=== PATIENT | male | born 1950 | race Caucasian/White ===

== ENCOUNTER 2017-01-19 15:17 | Inpatient (IN) | payer MEDICARE ==
[~2017-01-19] VITALS: Ht 180.3 cm; Wt 108.0 kg
[2017-01-19] VITALS (7 sets, daily range): BP systolic 120–163; BP diastolic 76–103; PULSE 72–88; RESP 19–24; O2SAT 39–100
[~2017-01-19 15:17] MED LIST: ASPI81TA40 PO; HYDR25TA4 PO; LISI10TA PO
--- NOTE | 2017-01-19 15:20 | ED.REPORT ---
HPI-Cardiac Arrest Date of Service Jan 19, 2017 ED Provider: Abdifatah Lee MD Pt is a 66 y/o male w/ a limited known history of HTN, HLD, presenting to the ED via EMS due to cardiac arrest. The patient came back home from a 36 mile bike ride. After the ride he was complaining of "indigestion". Shortly afterwards his who was upstairs heard him collapse to the ground. She went downstairs to find him unresponsive and apneic. She called 911 who instructed her to begin CPR. A few minutes later EMS arrived to find the patient in ventricular fibrillation. CPR was initiated and he was shocked a total of 3 times and received a total of 4 rounds of epinephrine with ROSC after the final shock. Total time of CPR estimated to be about 20 minutes. On route, he was intubated and EMS started an epinephrine drip as well as gave amiodarone, bicarb , and succinylcholine/ketamine for sedation. Vital signs on route: HR 50-60 bpm , BP 50-60/30, sp02 90-100%. He arrives to the ED in a normal sinus rhythm with rate in 80s with BP 120/76. Nursing Notes Stated Complaint: ARREST Nursing Notes Reviewed: Yes Allergies: Coded Allergies: No Known Allergies (Verified Allergy, Unknown, 10/16/09) Scheduled Aspirin-Expunged Drug, Do Not Renew! (Aspirin-Expunged Drug, Do Not Renew!) 81 Mg Tab.chew 81 MG PO AM Hydrochlorothiazide-Expunged, Do Not Renew! (Hydrochlorothiazide-Expunged, Do Not Renew!) 25 Mg Tablet 25 MG PO AM Lisinopril-Expunged Drug, Do Not Renew! (Lisinopril-Expunged Drug, Do Not Renew! ) 10 Mg Tablet 10 MG PO AM General Time Seen by Provider: 15:24 Chief Complaint Cardiac arrest, found dwn Context: Resuscitation: Initial rhythm V Fib Hx Obtained From: Spouse, EMS Unable to Obtain Hx: Patient condition Arrived By: Ambulance Past Medical History Past Medical History Hypertension Hyperlipidemia Right inguinal hernia s/p repair Further unknown Past Surgical History Right inguinal hernia repair Smoking History Unknown if Ever Smoker Social History Other Social History: Ambulatory Status Independent Review of Systems Unable to Obtain ROS Patient condition, Intubated Physical Exam Initial Vital Signs Vital Signs (First) Date Time Temp Pulse Resp B/P Pulse Ox O2 Delivery O2 Flow Rate FiO2 01/19/17 15:42 83 120/76 100 Mechanical Ventilator 01/19/17 15:45 19 Initial VS: Reviewed, Vital signs abnormal GENERAL: Intubated Sedated Respiratory / Chest: Breath sounds NL, Breath sounds = bilat, No rales, No rhonchi, No wheezing Intubated and sedated Cardiovascular: Heart rate NL, Regular rhythm, Heart sounds NL, No murmurs Strong femoral pulse Abdomen: Atraumatic, Soft Head / Eyes: Atraumatic, Normocephalic, PERRL ENT: Atraumatic, Airway patent Neck: Atraumatic Upper Extremity / MS: Atraumatic Lower Extremity / Pelvis / MS: Atraumatic Skin: Atraumatic, No rash NEURO: Sedated PSYCH: Unable to assess Interpretation & Diagnostics Lab Results Interpretation Result Diagram: 01/19/17 1545 01/19/17 1545 Test 01/19/17 15:45 01/19/17 15:52 White Blood Count 11.3th/mm3 (3.8-10.1) Red Blood Count 4.49mil/mm3 (4.40-5.80) Hemoglobin 12.5g/dL (13.8-17.2) Hematocrit 38.6% (41.0-50.0) Mean Corpuscular Volume 86.0fL (81-100) Mean Corpuscular Hemoglobin 27.8pg (27.0-35.0) Mean Corpuscular Hemoglobin Concent 32.4% (32.0-37.0) Red Cell Distribution Width 15.2% (12.3-15.4) Platelet Count 188bil/L (150-400) Neutrophils (%) (Auto) 56.6% (40-74) Lymphocytes (%) (Auto) 31.0% (14-46) Monocytes (%) (Auto) 8.0% (4-12) Eosinophils (%) (Auto) 1.7% (0-5) Basophils (%) (Auto) 0.5% (0-3) Sodium Level 144mEq/L (134-144) Potassium Level 3.8mEq/L (3.5-5.2) Chloride Level 107mEq/L (97-108) Carbon Dioxide Level 13mmol/L (18-29) Blood Urea Nitrogen 19mg/dL (8-27) Creatinine 1.37mg/dL (0.76-1.27) Estimat Glomerular Filtration Rate 55mL/min (>59) Glucose Level 254mg/dL (60-99) Calcium Level 7.5mg/dL (8.5-10.1) Magnesium Level 2.2mg/dL (1.6-2.6) Total Bilirubin 0.3mg/dL (0.0-1.2) Aspartate Amino Transf (AST/SGOT) 103U/L (0-50) Alanine Aminotransferase (ALT/SGPT) 97U/L (0-44) Alkaline Phosphatase 59U/L (25-160) Troponin T < 0.010ug/L (0.0-0.011) Total Protein 5.3g/dL (6.4-8.4) Albumin 3.5g/dL (3.4-5.0) Prothrombin Time 11.4sec (8.1-12.5) Prothromb Time International Ratio 1.06ratio Lactic Acid Level 8.1mmol/L (0.4-2.0) Phosphorus Level 7.6mg/dL (2.5-4.9) Total Creatine Kinase 139U/L (21-232) Creatine Kinase MB 2.2ng/mL (0.0-10.4) Creatine Kinase MB % % (0.0-5.0) Pro-B-Type Natriuretic Peptide 119.4pg/mL (0-376) Hold [place] Top Tube Received (Received) ECG Interpretation ECG Interpretation: Sinus rhythm rate 87 Extensive anterior STEMI IVCD Reviewed with cardiology No prior available for comparison Time: 15:32 Interpreted by: ED physician, Warehouse Operator X-Ray Chest Interpretation Chest Xray Interpretation: IMPRESSION: Endotracheal tube and nasogastric tube are in expected positions. No pneumothorax. Dictated by: Juan A Lang M.D. on 01/19/2017 at 16:07 Approved by: Juan A Lang M.D. on 01/19/2017 at 16:08 View: Portable, 1 view Interpretation / Wet Read by: Interpret - Radiologist Chest Xray Interpretation: IMPRESSION: Right internal jugular central venous catheter is now present, with tip in expected position. No pneumothorax. Dictated by: Juan A Lang M.D. on 01/19/2017 at 16:23 Approved by: Juan A Lang M.D. on 01/19/2017 at 16:24 View: Portable, 1 view Interpretation / Wet Read by: Interpret - Radiologist CT Head Interpretation IMPRESSION: No acute intracranial abnormalities. Dictated by: Juan A Lang M.D. on 01/19/2017 at 16:31 Approved by: Juan A Lang M.D. on 01/19/2017 at 16:33 Study: Head CT no contrast Interpretation / Wet Read by: Interpret - Radiologist Procedures Central Line Placement Time: 15:48 Procedure Performed by: ED physician Consent / Setup / Site Prep: Consent from spouse, Time-out performed, Needle aspirate performed, Oxygen administered, Pulse oximeter applied, monitoring manager applied, Hand hygiene observed, Standard surgical scrub, Max barrier precaution, Sterile drapes applied Skin Preparation Agent: Hibiclens - Chlorhexidine Procedural Sedation/Analgesia: Sedation: Versed Side / Location / Ultrasound: Internal jugular right, Ultrasound assisted Catheter / Lumen / Technique: Triple lumen, Seldinger technique, Good blood return Central Line Tip Location: Cath tip good position in the SVC Post-Procedure / Complications: Antibiotic oint applied, Dressing placed, CXR neg for pneumothorax, Tolerated procedure well, Not stable post-procedure ( Unstable at beginning of procedure) Re-Eval/Medical Decision Med Decision/Clinical Course 66-year-old male history of hypertension presenting status post cardiac arrest. Patient went on a 30 mile bike ride with his then complained of chest pain and passed out. for the event and found the patient unconscious. She performed CPR. Paramedics arrived and found the patient unconscious in ventricular fibrillation. Patient was shocked multiple times and given 4 rounds of epinephrine. Rosc was achieved. Patient was started on an epinephrine drip in route. On arrival patient with normal blood pressures in sinus rhythm. Intubated. Sedated. Pulses were strong. EKG was obtained and showed an anterior STEMI. Dr. Almonte interventional cardiology was consulted immediately and Toolroom Clerk was activated code STEMI. A right ultrasound-guided internal jugular central venous catheter was placed. Hypothermia protocol was initiated. Patient was placed on amiodarone drip. Cardiology requested rectal aspirin not heparin drip. Patient was taken to the laboratory phlebotomist emergently. CT brain no acute pathology. Admitted to laboratory phlebotomist. Sedated with versed gtt. Re-Evaluation/Progress #1: Time of Eval: 15:32 Re-Evaluation/Progress Note: Discussed case with who arrived shortly after patient. Re-Evaluation/Progress #2: Time of Eval: 15:42 Re-Evaluation/Progress Note: Pt rechecked. Informed of need for laboratory phlebotomist. She agrees with plan. Re-Evaluation/Progress #3: Time of Eval: 15:48 Re-Evaluation/Progress Note: Pt rechecked. Informed of plan to plan central line. She agrees with plan. Given normal BP, cooling protocol is started. Re-Evaluation/Progress #4: Time of Eval: 16:05 Re-Evaluation/Progress Note: Warehouse Operator arrived. Explaining cath procedure to . Consultation : Referral / Consult Name: Erick Almonte MD Consulted With: Cardiology Call Returned at: 15:34 Medical Support Assistant: Will see patient, Agrees with eval, Agrees with plan, Accepts admit Note: Discussed case with interventional cardiology. EKG reviewed and interpreted as anterior STEMI. Accepts patient to laboratory phlebotomist. No cooling protocol if he remains hypotensive. Counseled Regarding: Diagnosis, Lab results, Need for admission Discharge & Departure Impression: Primary Impression: Cardiac arrest Additional Impression: ST elevation myocardial infarction (STEMI) of anterior wall Disposition: ADMITTED TO HOSPITAL All VS Reviewed: Yes Condition: Critical Referrals: Saroj Galaviz MD (PCP) Crit Care Except Billable Proc Time Spent: 30-74 minutes Services Performed: Patient management by me, Time spent at bedside, Reviewing test results, Reviewing imaging, Discussing patient care, Documentation in record Scribe Attestation Portions of this note were transcribed by Jacob Valentine. I, Dr. Lee personally performed the history, physical exam and medical decision-making; I reviewed and confirmed the accuracy of the information in the transcribed note. copies to: Saroj Galaviz MD, Ben M MD Jan 19, 2017 15:20 JACOB VALENTINE Jan 19, 2017 15:30
[2017-01-19] MEDS ORDERED: Midazolam 100 mg/100 mL Premix IV ONE (15:35)
[2017-01-19] MEDS ORDERED: 0.9% Sodium Chloride 1,000 ML IV ONE (15:37)
[2017-01-19 15:48] LABS: BASOPHILS % (AUTO) 0.5 % (0-3); EOSINOPHILS % (AUTO) 1.7 % (0-5); Mean Corpuscular Hemoglobin 27.8 pg (27.0-35.0); NEUTROPHILS % (AUTO) 56.6 % (40-74); Platelet Count 188 bil/L (150-400)
[2017-01-19 16:00] LABS: INR 1.06 ratio
[2017-01-19] MEDS ORDERED: Heparin 1,000 Units/500 mL NS Premix IV ONE ×2 (16:00→17:54)
[2017-01-19] MEDS ORDERED: Nitroglycerin 50,000 mcg/250 mL D5W Premix IV ONE (16:00)
[2017-01-19] MEDS ORDERED: Heparin 1,000 Unit/mL 10 mL Inj ONE ×2 (16:00→17:20)
[2017-01-19] MEDS ORDERED: NitroPRUSSIDE 25,000 mCg/mL 2 mL Inj IV ONE (16:01)
[2017-01-19] MEDS ORDERED: Dextrose 5% 250 ML IV ONE (16:01)
[2017-01-19] MEDS ORDERED: Heparin 10,000 Unit/1,000 mL NS Premix IV ONE ×2 (16:01→16:09)
[2017-01-19] MEDS ORDERED: 0.9% Sodium Chloride 2,000 ML ONE (16:01)
[2017-01-19] MEDS ORDERED: EPINEPHrine 10,000 mCg/250 mL NS IV SCH ×2 (16:05)
--- NOTE | 2017-01-19 16:10 | DRSVH ---
PROCEDURE: X-RAY CHEST ONE VIEW, PORTABLE ([id number]) INDICATIONS: 66 year-old male with cardiac arrest. TECHNIQUE: One view of the chest was acquired. COMPARISON: [facility], , CHEST 2VW, 09/27/2014, 15:02. FINDINGS: Surgical changes and devices: Endotracheal tube and nasogastric tube are in expected positions. Lungs and pleura: No pleural effusions or pneumothorax. Lungs are clear. Previously noted right lo wer lung nodular opacity is no longer apparent. Mediastinum: Mediastinal contours appear normal. Heart size is normal. Bones and chest wall: No suspicious bony lesions. Overlying soft tissues appear unremarkable. IMPRESSION: Endotracheal tube and nasogastric tube are in expected positions. No pneumothorax. Dictated by: Juan A Lang M.D. on 01/19/2017 at 16:07 Approved by: Juan A Lang M.D. on 01/19/2017 at 16:08
[2017-01-19 16:11] LABS: TROPONIN T < 0.010 ug/L (0.0-0.011)
[2017-01-19 16:21] LABS: Magnesium 2.2 mg/dL (1.6-2.6)
--- NOTE | 2017-01-19 16:26 | DRSVH ---
PROCEDURE: X-RAY CHEST ONE VIEW, PORTABLE ([id number]) INDICATIONS: 66-year-old male with central line placement. TECHNIQUE: One view of the chest was acquired. COMPARISON: [facility], CR, XR CHEST 1VW (PORTABLE), 01/19/2017, 15:22. [facility], CR, CHEST 2VW, 09/27/2014, 15:02. FINDINGS: Surgical changes and devices: Endotracheal tube and nasogastric tube are again noted. Right internal jugular central venous catheter is now present, with tip in the mid superior vena cava. Lungs and pleura: No pleural effusions or pneumothorax. Lungs are clear. Mediastinum: Mediastinal contours appear normal. Heart size is normal. Bones and chest wall: No suspicious bony lesions. Overlying soft tissues appear unremarkable. IMPRESSION: Right internal jugular central venous catheter is now present, with tip in expected posit ion. No pneumothorax. Dictated by: Juan A Lang M.D. on 01/19/2017 at 16:23 Approved by: Juan A Lang M.D. on 01/19/2017 at 16:24
--- NOTE | 2017-01-19 16:35 | DRSVH ---
PROCEDURE: CT BRAIN WITHOUT CONTRAST ([id number]) INDICATIONS: 66 year-old male with cardiac arrest. TECHNIQUE: Noncontrast 4.5 mm thick angled axial sections acquired from the foramen magnum to the vertex, with c oronal reformats. COMPARISON: None. FINDINGS: Image quality: Excellent. CSF spaces: Basal cisterns are patent. No extra-axial fluid collections. Ventricles are normal in size and shape. Brain: No midline shift. No intracranial masses or hemorrhage. Scherer-white matter interface is norm al. Skull and face: Calvarium and visualized facial bones are intact, without suspicious lesions. Sinuses: Visualized sinuses and mastoids are clear. IMPRESSION: No acute intracranial abnormalities. Dictated by: Juan A Lang M.D. on 01/19/2017 at 16:31 Approved by: Juan A Lang M.D. on 01/19/2017 at 16:33
[2017-01-19 16:59] LABS: INR 1.06 ratio
[2017-01-19] MEDS ORDERED: Cisatracurium Inj 200,000 MCG in 0.9% Sodium Chloride 100 ML, Pharmacy To Mix 1 EA IV ONE (17:05)
[2017-01-19 17:20] LABS: Creatine Kinase 139 U/L (21-232); Phosphorus 7.6 mg/dL (2.5-4.9)
--- NOTE | 2017-01-19 19:25 | NUR ---
Arrival to CCU Patient in CCU at 1850- stable. Right groin balloon pump at 1:1 ratio- groin side stable. Right groin post heart intervention side stable with star-close closure device placed by cathode builder team. Cooling protocol initiated in ED patient at 33.4 core temperature on arrival in CCU. Patient was started on nimbex drip at 3mcg/kg/min in cathode builder for shivering- no shivering on arrival to CCU. Report was given to Ana slot shift supervisor CCU RN.
[2017-01-19] MEDS ORDERED: Polyethylene Glycol (PEG) 17 Gm Powder PO PRN (19:35)
[2017-01-19] MEDS ORDERED: Ondansetron 2 mg/mL 2 mL Inj IVPUSH PRN (19:35)
[2017-01-19] MEDS ORDERED: Alum-Mag Hydrox-Simeth 30 mL Suspension PO PRN (19:35)
--- NOTE | 2017-01-19 20:42 | NUR ---
ED LAUNCHMAN Note D/A: [facility] called overhead. LAUNCHMAN presented to Pt's room to provide support and assistance as needed. Pt experienced a cardiac arrest and 26 minutes of CPR STOCKING AND BOX SHOP SUPERVISOR. Pt was intubated and noncommunicative upon arrival Pt's , Isabel, arrived shortly after Pt. P: LAUNCHMAN provided support to Pt's and family throughout Pt's stay in the ED and his procedure in Tip Out Worker. Pt was admitted to CCU. LAUNCHMAN escorted Pt's family to CCU consult room. SHARON Reed, AAC
--- NOTE | 2017-01-19 21:01 | ABG ---
DateTimeAnalyzed 20:51:00 -_ pH ____7.331 - 7.350 7.450 pCO2 ___31.3__ -mmHg 35.0 45.0 pO2 152 -mmHg 69.0 116 HCO3- ___16.1__ -mmol/L 22.0 26.0 ABE ___-8.3__ -mmol/L -2.0 2.0 tHb ___15.2__ -g/dL O2Hb ___97.0__ -% COHb ____0.4__ -% MetHb ____1.1__ -% sO2 ___98.5__ -% 25.0 FIO2 ___70.0__ -% PRVC 24 - PEEP ____5.0__ -cmH2O Set_RR ___24.0__ -b/min Vt __550.0__ -L Drawn By blf - Date/Time Notified____ 21:01:00 -_ Spontaneous_RR ___24.0__ -b/min Oxygen Device 1 VENTILATOR - Notified By blf - Notified Whom RADHA SWAN RN - B 764 -mmHg tO2 ___21.0__ -Vol% Heladio test N/A -
[2017-01-19] MEDS ORDERED: Phenylephrine/NS-PF 100 mCg/mL 5 mL Syringe IVPUSH PRN (21:20)
[2017-01-19] MEDS ORDERED: Phenylephrine Inj 20,000 MCG in 0.9% Sodium Chloride 250 ML IV SCH (21:20)
--- NOTE | 2017-01-19 21:21 | CONS ---
[address] [address] CONSULTATION REPORT PATIENT: EDDIE DÍAZ : 1950 MR#: [id number] ADMIT: 01/19/2017 JOB ID: [id number] DATE OF SERVICE: 01/19/2017 CARDIOLOGY CONSULTATION--INITIAL CRITICAL CARE EVALUATION (EMERGENCY DEPARTMENT): DATE OF EVALUATION: Thursday, January 19, 2017. CONSULTING PHYSICIAN: Cardiology--Erick Almonte MD. PROBLEMS: 1. Acute coronary syndrome (ACS): a. Cardiac arrest--sudden cardiac at home with bystander CPR; and ROSC with prolonged CPR and four defibrillation plus multiple epinephrine. b. STEMI--acute anterior myocardial infarction. c. Cardiogenic shock--requiring moderate dose epinephrine IV infusion. d. Hypothermia protocol--intubated and unresponsive on ventilator. CAD RISK FACTORS: 1. Hypertension--treated. 2. No history of diabetes. 3. History of possible hypercholesterolemia; not treated. 4. Nonsmoker. FAMILY HISTORY: Premature coronary disease noted. CHIEF COMPLAINT: STEMI activation. Cardiac arrest with ST elevation on ECG. HISTORY OF PRESENT ILLNESS: PRESENTATION: This 66-year-old man presents to the emergency department by EMS after he collapsed at home with a cardiac arrest. He has been previously healthy with no prior history of heart disease until today. He had a 35-mile bike ride today in the hot weather. He began to develop chest discomfort with "indigestion." He finished the bike ride, returned home, took a shower. His was in another room and heard him collapse with agonal breathing. There was a question that he fell. She found him on the couch. She began CPR for 6 minutes. EMS then arrived and is reported to have done CPR for another 25-26 minutes. He had four defibrillation; and four rounds of epinephrine and amiodarone in the field. Blood pressures were initially as low as 60. On arrival to the emergency department, he had blood pressure above 100 but requiring epinephrine drip. He received ASA per rectum 650 mg. Because of the questionable fall, head CT was done. ECG shows anterior ST elevation. Decision is made for emergent coronary angiogram and anticipated PCI. Cardiac history: He has no antecedent cardiac history or prior cardiac symptoms. Regarding other possibly underlying vascular disease, there is no history of CVA or current symptoms of TIA. No claudication. Regarding possible dual antiplatelet therapy, he has no current bleeding symptoms; no anticipated surgery; and the states he is reliable to take mandatory medicines as needed. ALLERGIES: No known drug allergies. I elicit no history of allergy to medical contrast or to seafood, fish, iodine, or shellfish. MEDICATIONS: 1. ASA 81 mg daily. 2. A medicine for hypertension. PAST MEDICAL HISTORY: The states he has a primary physician and is generally healthy and treated for no other major medical diagnoses except hypertension. REVIEW OF SYSTEMS: I questioned the in the emergent setting regarding a 13-point review of systems which was unremarkable, noncontributory or negative except as noted including: No history of thyroid disorder. No history of lung disorder including dyspnea or asthma. No history of GI disorder including indigestion, ulcer, hepatitis or jaundice. PERSONAL AND SOCIAL HISTORY: Cigarettes--lifetime nonsmoker except transiently in the past in his youth. ETOH--he does not report significant alcohol use. Family--He lives locally with his and has two children who arrived. Work--He is retired from working in the [employer]. FAMILY HISTORY: There is a family history of premature coronary disease in his father in his 40s. PHYSICAL EXAMINATION: Vital signs: Initially blood pressure 120/80, on epinephrine IV infusion 0.04 mcg/kg per minute. Respiratory rate 18, breathing on his own above the ventilator rate. Pulse oximeter 100% on 100% FiO2. Pulse 83 and sinus rhythm. General appearance: Well-developed elderly man who is unresponsive on a ventilator with hypothermia protocol initiated. Neurologic and mental status: No overt focal neurologic defect noted. HEENT: PERR, mid range bilaterally. Conjunctivae pink. Sclerae not icteric. Mouth and mucous membranes intact except intubated. Neck: Carotid upstroke intact bilaterally without bruit. JVP difficult to assess supine but unremarkable. No palpable thyromegaly. No palpable cervical lymphadenopathy. Lungs: Clear to auscultation bilaterally with diminished breath sounds examined supine on ventilator. Cardiac: Cardiac examination notable for distant heart sounds, S4 gallop. No loud murmur heard. Abdomen: Mildly obese, but otherwise unremarkable without mass, hepatosplenomegaly, or bruit of abdominal aortic aneurysm. Extremities: Intact without edema and pedal pulses strong at bilateral dorsalis pedis and posterior tibial. DIAGNOSTIC STUDIES: ECG shows sinus rhythm with initially right bundle branch block, left axis deviation, and normal SC later in the catheterization lab. The QRS is not wide. Chest x-ray: The chest x-ray film shows borderline cardiomegaly; and pulmonary venous congestion is present. LABORATORY: Initial laboratories include: CBC includes WBC 11,300 with hemoglobin 12.5, hematocrit 38.6. Normal indices and platelet count 188,000. INR 1.06. Chemistries include potassium 3.8, BUN 19, creatinine 1.37, glucose 254, HB A1c pending. Lactic acid 8.1, magnesium 2.2. LFT include elevated AST 103 and elevated ALT 97. Initial cardiac enzymes include CK total 139, CK MB 2.2 with troponin less than 0.010 and BNP 119. ASSESSMENT: I discussed the findings, impression, and management considerations with the ; later with his children and other family members; with the emergency department staff, Dr. Piyush Esposito; with the hospitalist critical care team including Dr. Marvin Beard and Dr. Mendoza; and with Cardiology, Dr. Joseph, including: ACS with SCD, anterior STEMI and ROSC requiring ventilator; and cardiogenic shock with epinephrine dependent: He presented with initial ischemic chest discomfort, then cardiac arrest, then ROSC after prolonged CPR and a prolonged resuscitation. He is now critically ill, unresponsive on ventilator with cardiogenic shock, requiring moderate to high-dose epinephrine. I discussed the findings, impressions and management considerations with the including the recommendation to proceed to emergent coronary angiogram and anticipate a PCI for anterior ME and anticipated LAD occlusion. He will likely benefit from balloon pump support. RECOMMENDATIONS: 1. Cardiac catheterization--emergent. 2. Critical care support including ventilator and hypothermia protocol. OMT-optimal guideline directed medical therapy including for underlying CAD risk factors and for his coronary disease including aspirin; prasugrel; high-intensity statin; beta-britney when compensated; XUAN inhibitor when compensated. Echocardiogram.
[2017-01-19] MEDS: Famotidine Inj 20 MG in IV Premix 1 EACH IV SCH (21:26)
[2017-01-19] MEDS ORDERED: IV Premix 1 EACH IV ONE (22:06)
[2017-01-19] MEDS ORDERED: Amiodarone 360 mg/200 mL D5W Premix IV ONE (22:06)
--- NOTE | 2017-01-19 22:17 | CS94 ---
[address] [address] DIAGNOSTIC CARDIAC CATHETERIZATION PATIENT: EDDIE DÍAZ : 1950 MR#: [id number] ADMIT: 01/19/2017 JOB ID: [id number] SERVICE DATE: 01/19/2017 PROCEDURE NOTE/CARDIAC CATHETERIZATION LABORATORY: MIXED SIGNAL DESIGN ENGINEER: Erick Almonte MD PROCEDURES: 1. Coronary angiogram, emergent. 2. Left heart catheterization (LHC), pressure measurement. 3. Percutaneous coronary intervention (PCI), stents of mid LAD (CARLOS ALBERTO); Xience 2.5 x18; Xience 2.75 x 23 overlapping proximally; and Xience 2.75 x 23 overlapping proximally. 4. IABP (intra-aortic balloon pump). CLINICAL DETAILS: Details: This 66-year-old man presents to the cardiac catheterization laboratory emergently after he was admitted to the emergency department by EMS following collapse at home with cardiac arrest bystander CPR and ROSC (return of spontaneous circulation) by EMS following defibrillation four times and epinephrine four times and prolonged CPR over 25 minutes prior to hospital arrival. In the emergency department, he was in cardiogenic shock with hypotension; initial pre-hospital blood pressures as low as 60; and requiring epinephrine IV support at 4.2 mcg/minute. He was unresponsive on ventilator and hypothermia protocol initiated. He has no prior history of known heart disease. He took a 35 mile bike ride today in the heat; he complained of onset of indigestion-like chest discomfort; then collapsed at home sometime later. Underlying CAD risk factors include treated hypertension and possible history of hypercholesterolemia; and family history of premature coronary disease. PROCEDURAL DETAILS: I evaluated him emergently in the emergency department. I spoke with his regarding the findings, impressions and management considerations, including the recommendation to proceed to emergent cardiac catheterization for definitive diagnosis and to guide treatment options including medical therapy, anticipated PCI; or coronary bypass surgery if needed. We discussed the procedure including possible risks and complications. We discussed his critical illness and the high risk nature of the procedure, including the high likelihood of mortality. We discussed bleeding, infection, blood clots; as well injury to nerve, artery, vein or kidney; and also arrhythmia, drug reaction or others. We discussed treatment as needed including surgery, pacemaker, transfusion. We discussed more serious complications that are possible including stroke, heart attack, cardiac arrest, and emergency surgery including transfer for coronary bypass surgery. After questions and discussion, the signed informed consent to proceed. Because of a history of having an unwitnessed fall, he had a CT head prior to the catheterization laboratory which was reported to be satisfactory. He was taken to the catheterization laboratory in critical condition, including intubated, where he was prepped sterilely and draped. Prior to the procedure, he had received ASA 650 mg per rectum; and epinephrine IV infusion continued; and amiodarone in the field, as well as ongoing amiodarone infusion. CORONARY ANGIOGRAM: Arterial access is obtained without difficulty in the right common femoral artery using fluoroscopic localization over the femoral head; and modified Seldinger technique to insert a 10 cm 6-Peruvian side-arm sheath. Catheters were advanced and exchanged over a long 0.035 inch J-tipped guidewire. First, the right coronary artery was imaged with a 6-Peruvian JR-4 diagnostic catheter. Then, the left coronary artery was imaged with a 6-Peruvian JL-4 guide catheter. LHC: At the end of the procedure a 6-Peruvian pigtail catheter was advanced across the aortic valve into the left ventricle to measure LVED and pullback. No LV angiogram done. PCI of mid LAD: Diagnostic images are reviewed. Decision is made to undertake emergent high risk intervention of the occluded culprit mid LAD. The guide catheter in place was used for the intervention. For the intervention, he received a loading dose of crushed prasugrel 60 mg per OGT. Procedural anticoagulation was obtained with bolus IV heparin to achieve therapeutic ACT. Aliquots of NTG IC were used as needed. The occluded mid LAD was crossed with an interventional wire, BMW 0.014 inches x 190 cm, placed in the distal LAD. PREDILATATION: The site of occlusion was pre-dilated with a TREK balloon, 2.5 x 15 mm, inflated to a maximum of 8 atmospheres. The artery was open. The culprit site of occlusion is a subtotal 95% tubular lesion. There is also a distal 90% tubular lesion and overall the treatment site is a diffuse segment of LAD. STENTS: The distal part of the lesion was initially treated with a Xience stent, 2.5 x 18 mm, deployed at 16 atmospheres. Then, an overlapping Xience stent, 2.75 x 23 mm, was deployed overlapping proximally at 16 atmospheres. Then, a third Xience stent, 2.75 x 23 mm, was deployed at 18 atmospheres. POST DILATATION: The stented segment was post dilated at high pressure using a noncompliant TREK balloon, 2.75 distally; and 3.0 proximally. Additionally, at the end of the procedure, there was some haziness distally in the stented segment which was then post dilated again with the noncompliant 2.75 mm balloon with improved appearance. Completion angiogram showed an excellent angiographic result with resumption of KENDAL-3 flow (KENDAL-0 initially); and no residual lesions; and no evident angiographic complication. INTRA-AORTIC BALLOON PUMP (IABP): Because he was still pressor dependent and very high LVED, a balloon pump was inserted in the left common femoral artery without difficulty using fluoroscopic localization over the femoral head; and modified Seldinger technique to insert a 40 cm intra-aortic balloon pump through a sheath. The balloon pump functions well with good augmentation and unloading in systole and diastole. Procedure without difficulty. Patient tolerated procedure well and he was improved. No complication. A side-arm sheath angiogram demonstrates adequate access in the right femoral artery for closure device. Arterial hemostasis is obtained without difficulty using a 6-Peruvian StarClose clip. The patient is improved with less pressor requirement; and is transferred in still critical condition from the catheterization laboratory to the CCU unit for ongoing care by the admitting hospitalist team; by the critical care team. I discussed the procedure findings and management considerations with the patient's and multiple other family members; as well as with the critical care team, Dr. Beard; and with Cardiology, Dr. Joseph. FINDINGS: 1. LMCA: Intact; and without angiographically significant lesions. 2. LAD: Mid LAD occluded. This is the culprit lesion for his infarct and cardiac arrest. The LAD is a moderate to large-sized transapical vessel. There is a small to medium diagonal branch (1.75-2 mm) at the site of the culprit subtotal LAD lesion seen when the vessel was opened. The diagonal has a moderate ostial lesion after cross by stent. The diagonal deteriorated but then improved with KENDAL-2 flow by the end of the procedure. No intervention was undertaken on this vessel. 3. LCX: Intact without angiographic stenoses. The left circumflex coronary artery is a large vessel without angiographically significant stenoses. Its distribution consists of a small to moderate sized OM followed by a large branching left posterolateral vessel. 4. RCA: Dominant. There is an intermediate 50% to 60% focal proximal lesion. The RCA is a large vessel. 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 5. LHC: LVED very high 40 mmHg; and no systolic gradient on pullback across the aortic valve. CONCLUSIONS: 1. PCI, primary PCI of culprit midLAD occlusion. 2. Adjunctive IABP. 3. Acute coronary syndrome (ACS), cardiac arrest; anterior myocardial infarction (STEMI); and cardiogenic shock. 4. Coronary artery disease (CAD), two-vessel CAD including culprit occluded midLAD; and intermediate 50% to 60% proximal RCA. RECOMMENDATIONS: 1. ECASA, indefinitely. 2. Prasugrel, plan one year if well tolerated, including ongoing Cardiology followup. I discussed with the the critical importance of mandatory dual antiplatelet therapy; and not to stop for any reason without immediate Cardiology consultation. 3. Echocardiogram. 4. Critical care support including initially ventilator, hypothermia protocol and balloon pump. 5. OMT, optimal guideline directed medical therapy for underlying CAD risk factors; and for coronary disease.
--- NOTE | 2017-01-19 22:48 | ABG ---
DateTimeAnalyzed 22:42:00 -_ pH ____7.303 - 7.350 7.450 pCO2 ___31.9__ -mmHg 35.0 45.0 pO2 176 -mmHg 69.0 116 HCO3- ___15.3__ -mmol/L 22.0 26.0 ABE ___-9.6__ -mmol/L -2.0 2.0 tHb ___15.2__ -g/dL O2Hb ___97.4__ -% COHb ____0.3__ -% MetHb ____1.0__ -% sO2 ___98.7__ -% 25.0 FIO2 ___70.0__ -% PRVC 24 - PEEP ____5.0__ -cmH2O Vt __550.0__ -L Drawn By blf - Date/Time Notified____ 22:47:00 -_ Spontaneous_RR ___24.0__ -b/min Oxygen Device 1 VENTILATOR - Notified By blf - Notified Whom RADHA SWAN RN - B 764 -mmHg tO2 ___21.2__ -Vol% Heladio test N/A -
[2017-01-19 23:26] LABS: Mean Corpuscular Hemoglobin 27.4 pg (27.0-35.0); Mean Corpuscular Volume 83.5 fL (81-100)
[2017-01-19 23:41] LABS: INR 1.11 ratio
[2017-01-20] VITALS (22 sets, daily range): BP systolic 80–147; BP diastolic 48–87; PULSE 55–74; RESP 24–41; O2SAT 100
[2017-01-20] MEDS ORDERED: Calcium GLUCOnate 10% (Gm) 1 Gm/10 mL Inj IV PRN ×2 (00:20→10:15)
[2017-01-20] MEDS ORDERED: KCl 40 mEq/100 mL Premix (K 3 - 3.7 & Creat < 2) IV ONE ×2 (00:20→07:05)
[2017-01-20] MEDS ORDERED: Calcium GLUCO 10% (Gm) Inj 2 GM in 0.9% Sodium Chloride 50 ML IV PRN (00:25)
[2017-01-20] MEDS ORDERED: Piperacillin-Tazo 3.375 Gm Inj 3.375 GM in Dextrose 5% Minibag Plus 50 ML IV SCH (00:30)
[2017-01-20] MEDS: Heparin 5,000 Unit/mL Inj SUBQ SCH ×3 (00:32→17:02)
[2017-01-20] MEDS: Amiodarone 360 mg/200 mL D5W 360 MG, Filter, Taxol 14256-28 1 EACH in IV Premix 1 EACH IV SCH ×2 (00:33→09:55)
[2017-01-20 00:50] LABS: APPEARANCE,URINE CLEAR (CLEAR,HAZY); COLOR,URINE YELLOW (YELLOW)
[2017-01-20 00:51] LABS: OCCULT BLOOD,URINE LARGE (NEGATIVE); UROBILINOGEN,URINE NORMAL (NORMAL)
[2017-01-20] MEDS ORDERED: Insulin Human REGular Inj 100 UNIT in 0.9% Sodium Chloride-Pha MIX 100 ML IV SCH (01:16)
--- NOTE | 2017-01-20 01:20 | PCM.HPMED ---
Subjective Date of Service Jan 19, 2017 Primary Provider: Admitting Physician: Erick Almonte MD Primary Care Physician: Saroj Galaviz MD Attending Physician: Erick Almonte MD Chief Complaint: Cardiac arrest History of Present Illness: Patient is a 66 y/o male w/ a history of HTN and HLD who presented to the ED via EMS in cardiac arrest. The patient came back home from a 36 mile bike ride today. After the ride he was complaining of "indigestion". Shortly afterwards his who was upstairs heard him collapse to the ground. She went downstairs to find him unresponsive and apneic. She called 911 who instructed her to begin CPR. After 6 minutes of CPR by the , EMS arrived to find the patient in ventricular fibrillation. CPR was initiated and he was shocked a total of 3 times and received a total of 4 rounds of epinephrine with ROSC after the final shock. Total time of CPR by EMS was estimated to be about 25 minutes in addition to the 6 minutes by the . En route, he was intubated and EMS started an epinephrine drip as well as gave amiodarone and bicarb. Vital signs on route: HR 50-60 bpm, BP 50-60/30, sp02 90-100%. He arrives to the ED in a normal sinus rhythm with rate in 80s with BP 120/76. Per the , he had no preceding symptoms of chest discomfort or shortness of breath in the prior week. He has no significant cardiac history. History was obtained from the and ED notes as pt was sedated and intubated. In the ED, HR was 83, BP was 120/76. WBC 11.3, Hb 12.5, glucose 254, AST 103, ALT 97, troponin <0.01. Lactic acid 8.1. EKG showed anterior ST elevation. CT head was negative. Dr. Almonte of Cardiology was contacted and the patient received ASA but heparin gtt was deferred per Cardiology. He was placed on cooling protocol and taken to [facility] [employer], and found to have a significant mid- LAD occlusion which required 3 stents. Review of Systems: Comprehensive review of systems conducted and was negative except for the pertinent positives listed above. Allergies Coded Allergies: No Known Allergies (Verified Allergy, Unknown, 10/16/09) Home Medications Aspirin 81 mg daily HCTZ 25 mg daily Lisinopril 10 mg daily PMH Hypertension Hyperlipidemia Surgical History Right inguinal hernia s/p repair Family History Father: MD and CABG at 45 Mother: Alive and well in her 90s Social History Hx Alcohol Use: Yes (3-4 PER WEEK) Hx Substance Use: No Smoking Status: Unknown if Ever Smoker Exam Vital Signs Vital Sign - Last Date Time Temp Pulse Resp B/P Pulse Ox O2 Delivery O2 Flow Rate FiO2 01/19/17 19:15 77 135/103 99 70 01/19/17 15:59 19 Mechanical Ventilator Exam General: Sedated and intubated. Head: Normocephalic, atraumatic. External ears normal. Eyes: Pupils sluggish, Anicteric sclerae. Mouth: Mouth normal, Mucous membranes moist/pink Neck: Neck supple with full range of motion. No JVD Chest& Lungs: Coarse breath sounds bilaterally Cardiovascular: Irregular, Normal S1, Normal S2, No murmurs/rubs/gallops Abdomen: Soft, no masses. Aortic bruit of intraaortic balloon pump audible. Extremities: No cyanosis/clubbing/edema bilaterally Neurological: Sedated and intubated. Lab and Diagnostics Result Diagram: 01/19/17 1545 01/19/17 1545 Assessment & Plan Patient is a 66 y/o male w/ a history of HTN and HLD who presented to the ED via EMS in cardiac arrest secondary to STEMI. Acute anterior ST Elevation MD. Present on admission. - Anterior ST elevation shown on EKG. Troponin 1.0. Mid-LAD lesion stented by Dr. Almonte of Cardiology. Pt has had various reperfusion related arrhythmias since the catheterization, so has remained on amiodarone. - Aspirin and prasugrel - Atorvastatin 80 mg qhs - Continue amiodarone gtt - Lipid panel ordered - Echocardiogram in AM - XUAN inhibitor and beta britney after patient stabilizes Cardiac arrest, acute. Present on admission. - Secondary to acute STEMI. Pt was resuscitated in the field, estimated about 30 minutes total CPR. - Cooling protocol - Mechanical ventilation, goal pCO2 40-45 mmHg Cardiogenic shock, acute. Present on admission. Stable. - Secondary to STEMI. BP well controlled on epinephrine gtt. No significant fluid overload on CXR; pt would tolerate fluid boluses if needed. - Continue epinephrine gtt. - Intra-aortic balloon pump in place. Acute respiratory failure. Present on admission. - Likely hypoxic and hypercarbic. Patient was found down and not breathing. Secondary to cardiac arrest. - Continue mechanical ventilation - Versed gtt Seizure-like activity, acute. Not present on admission. - Pt presented with seizure-like activity after cooling to 32.8 C. Observed to have frequent clonic movements with possible bilateral hand pronation. Temp began to increase to 33.1. - Nimbex gtt to prevent hyperthermia from seizure activity - Keppra 1500 mg loading dose, followed by 500 mg BID IV - Consider EEG and Neurology consult once cooling protocol is complete. Leukocytosis, acute. Present on admission. Worsening. - Pt presented with WBC 11.3 initially, which worsened to 30.4. Given the severity of the leukocytosis, this is less likely to be an acute stress reaction. Possibly secondary to aspiration pneumonia as pt received CPR and was intubated in the field. Unable to detect fever as pt is being cooled. Ordering procalcitonin levels with the caveat that they will likely be elevated in the context of cardiac arrest s/p CPR. - Repeat CXR ordered - Unasyn 3g q6 - Procalcitonin ordered - Blood and sputum cultures ordered Acute kidney injury. Present on admission. Improved. - Secondary to cardiogenic shock. Cr 1.37 on admission, improved to 0.95. Continue to monitor as pt received contrast during cath. - Avoid nephrotoxic agents - Monitor CMP Anion gap metabolic acidosis, acute. Present on admission. - Secondary to lactic acidosis. AG 24. - Continue to monitor lactic acid Lactic acidosis, acute. Present on admission. Improving. - Secondary to cardiac arrest and cardiogenic shock. Improved from 8.1 to 5. - Treat underlying cardiac causes - Monitor lactic acid q2h until normal. Hyperglycemia, acute. Present on admission. - BG 254 on admission, increased to 324. Possibly acute stress reaction. No history of diabetes. - Insulin gtt - A1c ordered Elevated liver enzymes, acute. Present on admission. - LFTs elevated on admission. Secondary to cardiogenic shock. - Continue to monitor LFTs. Hypertension, chronic. - Hold home lisinopril and HCTZ Hyperlipidemia, chronic. - Atorvastatin 80 mg qhs - Bowel regimen as needed - Antiemetic as needed Patient is admitted under inpatient status with expected length of stay greater than 2 midnights due to severity of presenting symptoms, risk of adverse event, and complexity of treatment plan. GI Prophylaxis: H2 britney VTE Prophylaxis: Sub-Q Heparin (Unfractionated) Resuscitation Status: CPR: Attempt Resuscitation Time spent 50 minutes critical care time spend Marvin Beard Jan 19, 2017 21:58 Jimmy Armendariz MD Jan 20, 2017 19:05
[2017-01-20] MEDS ORDERED: Dextrose 10% 250 ML IV PRN (01:25)
[2017-01-20] MEDS: Ampicillin-Sulbactam Inj 3,000 MG in 0.9% Sodium Chloride 100 ML IV SCH ×4 (01:52→18:34)
[2017-01-20] MEDS ORDERED: levETIRAcetam Inj 1,500 MG in Dextrose 5% 100 ML IV ONE (02:45)
[2017-01-20] MEDS ORDERED: 0.9% Sodium Chloride 500 ML IV ONE ×2 (03:40→05:05)
[2017-01-20] MEDS: Midazolam Inj 100 MG in IV Premix 1 EACH IV SCH ×2 (03:56→19:38)
[2017-01-20] MEDS ORDERED: 0.9% Sodium Chloride 1,000 ML IV SCH (04:05)
--- NOTE | 2017-01-20 05:01 | ABG ---
DateTimeAnalyzed 04:55:00 -_ pH ____7.252 - 7.350 7.450 pCO2 ___30.1__ -mmHg 35.0 45.0 pO2 273 -mmHg 69.0 116 HCO3- ___12.8__ -mmol/L 22.0 26.0 ABE __-13.0__ -mmol/L -2.0 2.0 tHb ___15.0__ -g/dL O2Hb ___97.5__ -% COHb ____0.3__ -% MetHb ____1.1__ -% sO2 ___98.9__ -% 25.0 FIO2 ___50.0__ -% PRVC 24 - PEEP ____5.0__ -cmH2O Vt __550.0__ -L Drawn By RN - Date/Time Notified____ 05:00:00 -_ Spontaneous_RR ___24.0__ -b/min Oxygen Device 1 VENTILATOR - Notified By blf - Notified Whom RADHA SWAN RN - B 764 -mmHg tO2 ___21.1__ -Vol% Heladio test N/A -
[2017-01-20 05:26] LABS: BASOPHILS % (AUTO) 0.1 % (0-3); EOSINOPHILS % (AUTO) 0.1 % (0-5); MONOCYTES % (AUTO) 6.5 % (4-12); Mean Corpuscular Volume 83.3 fL (81-100); NEUTROPHILS % (AUTO) 88.1 % (40-74); Platelet Count 242 bil/L (150-400)
[2017-01-20 05:44] LABS: INR 1.1 ratio
[2017-01-20 06:04] LABS: Magnesium 1.9 mg/dL (1.6-2.6)
[2017-01-20 06:34] LABS: TROPONIN T 3.53 ug/L (0.0-0.011)
[2017-01-20] MEDS ORDERED: Magnesium Sulf 2 Gm/50 mL D5W IV ONE (07:05)
[2017-01-20] MEDS ORDERED: Cisatracurium Inj 200,000 MCG in 0.9% Sodium Chloride 100 ML, Pharmacy To Mix 1 EA IV ONE (07:10)
--- NOTE | 2017-01-20 07:27 | NUR ---
Neuro / tele / labs / admit Patient cool per protocol at 1925. Temperature between 32-34 during shift. When greater than 33 patient began to experience shivering, nimbex bolus given. MD in to assess patient during episode, unsure if patient was possibly having some seizure activity due to some possible posturing with his arms. Ativan bolus given, Stefano started, MD okay with patient remaining only on Versed, and Nimbex given due to patient's RR 30-40. Train of four set up when machine cords were found. BIS added when machine became available and Nimbex gtt was started. Patient having frequent multifocal ventricular ectopy, AIVR, and vtach runs. Cardiology called to discuss Amiodarone rate, possibly adding other medications, balloon pump and fluids. No new orders. Epi off for most of shift but needed to be turned on when patient's SBP dropped to 60 very suddenly. MD notified, fluid boluses given per MD orders. Fluids effective. MD updated frequently on fluids, requesting boluses, Epi rate, and BP. RG site c/d/i, no bruising or hematoma. Monitored post cath per protocol, see flow sheet for VS. LG with balloon pump, 1:1 assist. Site also soft and non-bruised, small amount of oozing noted mid shift which subsided. MD notified of all critical labs during shift. Admit completed with the assistance of patient's at bedside. MRSA swab and UA sent. unsure which medications patient was taking. States they are on file at his doctors office. Education provided about balloon pump, hypothermia protocol, and restraints. Plan of care discussed and questions are answered.
[2017-01-20] MEDS ORDERED: SODIUM CHLORIDE IV SCH (08:30)
[2017-01-20] MEDS ORDERED: LEVETIRACETAM IV SCH (08:30)
--- NOTE | 2017-01-20 09:25 | DRSVH ---
PROCEDURE: X-RAY CHEST ONE VIEW, PORTABLE ([id number]) INDICATIONS: IABP adjustment, post-PCI TECHNIQUE: One view of the chest was acquired. COMPARISON: [facility], CR, XR CHEST 1VW (PORTABLE), 01/20/2017, 5:01. FINDINGS: Surgical changes and devices: Central venous catheter, endotracheal tube, and NG tube are unchanged. The aortic balloon pump has been retracted into the descending thoracic aorta from the arch. Lungs and pleura: No pleural effusions or pneumothorax. Lungs are clear. Mediastinum: Mediastinal contours appear normal. Heart size is normal. Bones and chest wall: No suspicious bony lesions. Overlying soft tissues appear unremarkable. IMPRESSION: Repositioned aortic balloon pump. Dictated by: Gem Rogers M.D. on 01/20/2017 at 9:22 Approved by: Gem Rogers M.D. on 01/20/2017 at 9:23
--- NOTE | 2017-01-20 09:38 | DRSVH ---
PROCEDURE: X-RAY CHEST ONE VIEW, PORTABLE ([id number]) INDICATIONS: Intubated TECHNIQUE: One view of the chest was acquired. COMPARISON: [facility], CR, XR CHEST 1VW (PORTABLE), 01/19/2017, 15:22. [facility], CR, XR CHEST 1VW (PORTABLE), 01/20/2017, 8:56. [facility], CR, XR CHEST 1VW (PORT ABLE), 01/19/2017, 15:55. FINDINGS: Surgical changes and devices: Stable position of ETT, right IJ CVL and nasogastric tube. Aortic ball oon pump has been slightly advanced tip now projected over the aorta at the thoracic arch level. Lungs and pleura: No pleural effusions or pneumothorax. Lungs are clear, aside from 1.2 cm rounded nodular opacity projected over the right lung base adjacent to the fifth left anterior lateral rib. Mediastinum: Mediastinal contours appear normal. Heart size is normal. Bones and chest wall: No suspicious bony lesions. Overlying soft tissues appear unremarkable. IMPRESSION: 1. Lines and tubes as above. 2. Nodular opacity projected over the left lower lobe. Pulmonary nodule cannot be excluded and erika nued radiographic followup is recommended. This may represent a nipple shadow. Dictated by: Jason HOLLOWAY Interpreted: Gem Rogers MD on 01/20/2017 at 9:30 Transcribed by: [email or web address] on 01/20/2017 at 9:37 Approved by: Gem Rogers M.D. on 01/20/2017 at 11:22
[2017-01-20] MEDS: Famotidine Inj 20 MG in IV Premix 1 EACH IV SCH ×2 (09:57→20:37)
[2017-01-20] MEDS ORDERED: Lactated Ringer's 1,000 ML IV PRN ×2 (10:11→11:47)
[2017-01-20] MEDS ORDERED: Propofol Inj 1,000,000 MCG in IV Premix 1 EACH IV PRN (10:11)
[2017-01-20] MEDS ORDERED: fentaNYL 2,500 mCg/250 mL 2,500 MCG in IV Premix 1 EACH IV PRN (10:11)
[2017-01-20] MEDS ORDERED: Magnesium Sulf 4 Gm/100 mL H2O 4 GM in IV Premix 1 EACH IV PRN (10:15)
[2017-01-20] MEDS ORDERED: Acetaminophen IV 1,000 MG in IV Premix 1 EACH IV PRN ×2 (10:15→18:32)
[2017-01-20 10:49] LABS: BASOPHILS % (AUTO) 0.1 % (0-3); EOSINOPHILS % (AUTO) 0 % (0-5); MONOCYTES % (AUTO) 9.6 % (4-12); Mean Corpuscular Hemoglobin 27.7 pg (27.0-35.0); Mean Corpuscular Volume 83.9 fL (81-100); NEUTROPHILS % (AUTO) 84.3 % (40-74); Platelet Count 183 bil/L (150-400)
--- NOTE | 2017-01-20 10:51 | PROG NOTE ---
[address] [address] PROGRESS NOTE PATIENT: EDDIE DÍAZ : 1950 MR#: [id number] ADMIT: 01/19/2017 JOB ID: [id number] DATE: 01/20/2017 CHIEF COMPLAINT: [id number] cardiac arrest. HISTORY OF PRESENT ILLNESS: The patient is a 66-year-old man who went on a bike ride, and then had indigestion after his bike ride. He had then collapsed and his had to perform 6 minutes of CPR. He was in ventricular fibrillation when the medics arrived. He was shocked three times and received four rounds of epinephrine. Return of spontaneous circulation after the final shock. CPR was ongoing for about 20 minutes. He was intubated and started on high dose epinephrine drip at 0.04. He underwent cardiac catheterization which demonstrated occluded LAD just distal to the first diagonal branch. Multiple drug-eluting stents were deployed. His intervention was complicated by hemodynamic instability requiring intraaortic balloon pump placement; pressor dependence on epinephrine 0.4 mcg/kg per minute. Cardiac catheterization course was also complicated by electrical instability, and he was treated with amiodarone drip at 1 mcg/minute. Overnight hypothermia protocol was initiated. His son, Jose, is at the bedside. This patient hemodynamically has done well overnight. The epinephrine was weaned off. He continues to have runs of VT (nonsustained) and AIVR. His course so far was significant for lack of responsiveness, but it is complicated by hypothermia and sedation with Versed. PHYSICAL EXAM: This is a critically ill man, lying in bed, sedated and intubated. Eyes show no scleral icterus. Neck is supple. No carotid bruits. There is a right IJ triple-lumen catheter. Heart shows normal S1 and S2. No murmurs, rubs, or gallops. Lungs with crackles at bases bilaterally anteriorly. Abdomen is soft with positive bowel sounds. No hepatosplenomegaly. Extremities with no edema. INSTRUMENTATION: He has right IJ triple-lumen catheter, left arm peripheral IV, right arm peripheral IV, endotracheal tube, orogastric tube, and left common femoral artery intraaortic balloon pump with a fluid filled pressure port connected to the monitoring equipment. Vital signs: His balloon pump is currently on 2-1 augmentation and his systolic blood pressure is 150 mmHg. Heart rate is 61 beats per minute. He is satting 100% on 40% FiO2. Is and Os: The patient put out 2.8 L, out more than in. CURRENT MEDICATIONS: 1. His drips include saline 50 cc an hour. 2. Amiodarone drip 0.5 mg/minute. 3. Insulin drip 15 units/hour. 4. Versed drip 6 mg/hour. His p.o. medications include: 1. Aspirin 81 mg daily. 2. Atorvastatin 80 mg daily. 3. Prasugrel 10 mg daily. Other medications include: 1. Famotidine 20 mg IV twice a day. 2. Heparin subcu per ACS protocol, 5000 units q.8 h. 3. Unasyn 3000 mg IV q.6 h. 4. Potassium chloride rider. ASSESSMENT AND PLAN: Pt is a OOH cardiac arrest survivor with difficult neurologic prognosis given prolonged resuscitation in the field. LHC showed occluded LAD s/p pCI with excellent angiographic result. The patient is doing well from hemodynamic standpoint. Will monitor closely. Will d/c IABP and monitor along with primary team. Once pressors are stopped, will initiate cardiac meds including beta britney and gian-inhibitor MTDD
--- NOTE | 2017-01-20 11:01 | NUR ---
NUTRITION ASSESSMENT Assess: 66 YO M admitted to CCU for cardiac arrest secondary to STEMI. 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 Pt currently intubated and on hypothermia protocol. Pt has been NPO X 1 day. Pt with some seizure-like activity per notes. PMHX: HTN, HLD. DIET: NPO. LABS: K+ 2.7, Glu 405, Lactic acid 11.4, Ca 8.3, AST 333, ALT 205 MEDICATIONS: Reviewed. Pressor. GI: No BM noted. SKIN: Wound consult pending. ANTHROPOMETRICS: Wt: 96.5 kg, BMI 29.7 kg/m2, ESTIMATED NEEDS: VENT Calories: 7742-3960 kcal/day (20-25 kcal/kg BW) Protein: 145-174 g/day (1.5-1.8 g/kg BW) NUTRITION DIAGNOSIS: 1) Inadequate oral intake related to decreased ability to consume sufficient energy as evidenced by NPO/Vent status. INTERVENTION: 1) Will await plan of care decisions. MONITOR/EVALUATE: NPO/Vent status, nutrition support, POC, labs, GI/nutrition status. Follow per high nutrition risk guidelines.
[2017-01-20] MEDS: fentaNYL 2,500 mCg/250 mL 2,500 MCG in IV Premix 1 EACH IV SCH (11:29)
[2017-01-20] MEDS ORDERED: 0.9% Sodium Chloride (Chilled) 500 ML IV PRN (11:47)
[2017-01-20] MEDS ORDERED: 0.9% Sodium Chloride (Chilled) 1,000 ML IV PRN (11:47)
[2017-01-20] MEDS ORDERED: Propofol Inj 1,000,000 MCG in IV Premix 1 EACH IV SCH (11:55)
[2017-01-20] MEDS: Chlorhexidine 0.12% 15 mL Oral Solution MT SCH ×2 (13:14→20:36)
--- NOTE | 2017-01-20 13:22 | ABG ---
DateTimeAnalyzed 13:14:00 -_ pH ____7.271 - 7.350 7.450 pCO2 ___33.6__ -mmHg 35.0 45.0 pO2 171 -mmHg 69.0 116 HCO3- ___14.9__ -mmol/L 22.0 26.0 ABE __-10.7__ -mmol/L -2.0 2.0 tHb ___13.1__ -g/dL O2Hb ___97.5__ -% COHb ____0.3__ -% MetHb ____0.9__ -% sO2 ___98.7__ -% 25.0 FIO2 ___40.0__ -% PRVC 24 - PEEP ____5.0__ -cmH2O Vt __550.0__ -L Drawn By gj - Date/Time Notified____ 13:21:00 -_ Spontaneous_RR ___29.0__ -b/min Oxygen Device 1 VENTILATOR - Notified By gj - Notified Whom ___DR. FORREST - B 763 -mmHg tO2 ___18.3__ -Vol% Heladio test _Positive -
[2017-01-20] MEDS ORDERED: Norepinephrine 8,000 mCg/250 mL NS Premix IV ONE (13:31)
[2017-01-20] MEDS ORDERED: Lactated Ringer's 1,000 ML IV ONE (13:35)
[2017-01-20] MEDS: Norepineph 8,000 mCg/250 mL NS 8,000 MCG in IV Premix 1 EACH IV SCH ×2 (13:42→20:45)
[2017-01-20 13:46] LABS: Magnesium 2.7 mg/dL (1.6-2.6)
--- NOTE | 2017-01-20 13:55 | DRSVH ---
[facility] [address] [place] [address] Echocardiogram Report Name: EDDIE DÍAZ BStudy Date: 12/23 Height: 7 1 in Hospital Exam Location: [facility] Weight: 2 13 lb Gender: Male BSA: 2.2 m2 : 1950 Age: 66 yrs BP: 86/64 mmHg Reason For Study: CAD Ordering Physician: Amna Garcia Performed By: Tayla Calvillo Referring Physician: Dr. Saroj Galaviz Interpretation Summary The left ventricle is normal in size. Left ventricular systolic function is moderately reduced. Left ventricular ejection fraction is estimated to be 40%. LVEF has decreased since prior study. There is hypokinesis to akinesis along the apical, anteroseptum, anterior, and part of the anterolateral wall. LV wall motion abnormalities are new since 06/18/2011. The right ventricle is normal in size and function. The right ventricular systolic pressure is estimated at 37 mmHg assuming a right atrial pressure of 15 mm Hg. The left atrial size is normal. Right atrial size is normal. There is no significant valvular heart disease. The ascending aorta is mildly enlarged. Procedure: A two-dimensional transthoracic echocardiogram with color flow and Doppler was performed. The study quality was technically adequate. Comparison is made with the echocardiogram of 06-18-11. The patient was in normal sinus rhythm during the exam. The patient had occasional PVCs during the exam. Left Ventricle: The left ventricle is normal in size. There is normal left ventricular wall thickness. Left ventricular systolic function is moderately reduced. Left ventricular ejection fraction is estimated to be 40%. There is hypokinesis to akinesis along the apical, anteroseptum, anterior, and part of the anterolateral wall. LV wall motion abnormalities are new since 06/18/2011. Assessment of diastolic parameters indicates normal left ventricular diastolic function and normal filling pressures. Right Ventricle: The right ventricle is normal in size and function. Atria: The left atrial size is normal. Right atrial size is normal. The interatrial septum is intact with no evidence for an atrial septal defect. Mitral Valve: The mitral valve is normal in structure and function. There is no mitral regurgitation noted. Aortic Valve: The aortic valve is trileaflet. The aortic valve is moderately calcified. There is no aortic valve stenosis. No aortic regurgitation is present. Tricuspid Valve: The tricuspid valve is normal in structure and function. There is trace tricuspid regurgitation. The right ventricular systolic pressure is estimated at 37 mmHg assuming a right atrial pressure of 15 mm Hg. Pulmonic Valve: The pulmonic valve is not well seen, but is grossly normal. There is mild pulmonic regurgitation. There is no significant valvular heart disease. Great Vessels: The aortic root is normal size. The ascending aorta is mildly enlarged. The IVC is dilated (diameter is greater than 2.1 cm) and it collapses less than 50% with a sniff. This suggests a high right atrial pressure of 15 mm Hg. Pericardium/ Pleura There is no pericardial effusion. There is no pleural effusion. MMode/2D Measurements & Calculations LVIDd LA dimension: 3.2 cm RVDd major: 5.7 cm AoV Openin.1 cm : 5.4 cm Ao root diam LVIDs LA A2 area: 19.3 cm : 3.5 cm LA A4 area: 16.4 cm Aortic Jxn: 3.0 cm FS: 35.4 % LA length (vol) asc Aorta Diam IVSd : 0.9cm LA vol: 46.6 ml Ao Arch Diam (Prox LVPWd LA vol index Trans): 2.4 cm : 0.7cm IVC diam: 2.5 cm ALICIA (plan) LV irby. diameter/BSA LV sys. diameter/BSA RVD1 (basal) : 1.4 cm2 (cm/m^2): 2.5 (cm/m^2): 1.6 : 3.0 cm RVD2 (mid) : 2.6 cm Doppler Measurements & Calculations Ao V2 max MV E max stanislaw MV E/A: 1.1 TR max stanislaw : 137.3 cm/sec : 67.9 cm/sec MV A dur : 231.7 cm/sec Ao max P.5 mmHgMV A max stanislaw : 0.14 sec TR max PG Ao mean PG : 59.8 cm/sec : 21.5 mmHg MV P1/2t: 82.4 msec PA V2 max LVOT Max Stanislaw : 73.2 cm/sec : 88.7 cm/sec PA mean PG sev ratio: 0.64 PA Accel Time : 0.12 sec MV dec time MV P1/2t max stanislaw Ao V2 mean LV V1 max PG : 0.28 sec : 94.1 cm/sec MVA(P1/2t): 2.7 cm2 Ao V2 VTI LV V1 VTI: 18.9 cm : 29.6 cm PA V2 mean : 46.1 cm/sec Reading Physician:PM
[2017-01-20 13:57] LABS: Creatine Kinase 3853 U/L (21-232)
--- NOTE | 2017-01-20 14:04 | NUR ---
Inpatient Wound Nurse Patient seen by CWON RN for Pressure Ulcer Prevention Protocol. No open areas found, heels without bogginess,elbows and scapulae without erythema. No additional precautions required at this time, staff following pressure ulcer prevention protocol. Patient will not be followed by [facility] unless specific wounds are found.
[2017-01-20 14:17] LABS: TROPONIN T 3.71 ug/L (0.0-0.011)
[2017-01-20] MEDS ORDERED: BusPIRone 15 mg Dividose Tablet NGTUBE PRN (14:25)
--- NOTE | 2017-01-20 14:39 | PCM.PNMED ---
Subjective Date of Service Jan 20, 2017 PULMONOLOGY/CRITICAL CARE PROGRESS NOTE . Subjective Patient underwent emergent PCI with placement of multiple drug eluting stents in the LAD and intraaortic balloon pump placement for hemodynamic instability. Admitted to the CCU and started on epinephrine as well as an amiodarone drip. Patient remains sedated and mechanically ventilated, now with seizure-like activity and concern for anoxic brain injury. Hemodynamically improved, off pressor support and intraaortic balloon pump removed per Cardiology. Slight drop in blood pressure following IV pushes of lorazepam for acute seizure activity. Patient started on fentanyl drip and continued on versed for sedation. He received 1500mg loading dose of Keppra overnight and is currently receiving 500mg of Keppra BID. Propofol drip added for intermittent seizure activity not controlled with current medications and Keppra increased to 1000mg BID. Exam Vital Signs Vital Sign - Last Date Time Temp Pulse Resp B/P Pulse Ox O2 Delivery O2 Flow Rate FiO2 01/20/17 10:45 72 41 139/75 01/20/17 08:00 33.1 100 Mechanical Ventilator 01/20/17 07:40 40 Intake and Output 01/19/17 01/19/17 01/20/17 Cumulative From/Thru 15:00 23:00 07:00 01/19/17 15:42 - 01/20/17 05:54 Intake Total 2129 ml 2129 ml Output Total 4950 ml 4950 ml Balance -2821 ml -2821 ml Intake IV Total 2129 ml 2129 ml Output Urine Total 4950 ml 4950 ml Exam General: Sedated and mechanically ventilated. ETT in place. HEENT: Normocephalic, atraumatic. Pupils equal, round, and reactive to light. Mucosa dry Cardiovascular: Regular rate and rhythm with no murmurs, rubs, or gallops appreciated Pulmonary: Clear to auscultation bilaterally with no crackles, wheezes, or rhonchi. Abdomen: Soft, nondistended, bowel tones diminished. Extremities: No cyanosis or edema. Neurological: Sedated, generalized myoclonus upper and lower extremities IVs and Medications Medications Reviewed: Medications were reviewed in detail Lab and Diagnostics Laboratory Tests Test 01/19/17 15:45 01/19/17 15:52 01/19/17 19:51 01/19/17 21:00 White Blood Count 11.3th/mm3 (3.8-10.1) Red Blood Count 4.49mil/mm3 (4.40-5.80) Hemoglobin 12.5g/dL (13.8-17.2) Hematocrit 38.6% (41.0-50.0) Mean Corpuscular Volume 86.0fL (81-100) Mean Corpuscular Hemoglobin 27.8pg (27.0-35.0) Mean Corpuscular Hemoglobin Concent 32.4% (32.0-37.0) Red Cell Distribution Width 15.2% (12.3-15.4) Platelet Count 188bil/L (150-400) Neutrophils (%) (Auto) 56.6% (40-74) Lymphocytes (%) (Auto) 31.0% (14-46) Monocytes (%) (Auto) 8.0% (4-12) Eosinophils (%) (Auto) 1.7% (0-5) Basophils (%) (Auto) 0.5% (0-3) Prothrombin Time 11.4sec (8.1-12.5) 11.4sec (8.1-12.5) Prothromb Time International Ratio 1.06ratio 1.06ratio Sodium Level 144mEq/L (134-144) Potassium Level 3.8mEq/L (3.5-5.2) Chloride Level 107mEq/L (97-108) Carbon Dioxide Level 13mmol/L (18-29) Blood Urea Nitrogen 19mg/dL (8-27) Creatinine 1.37mg/dL (0.76-1.27) Estimat Glomerular Filtration Rate 55mL/min (>59) Glucose Level 254mg/dL (60-99) Calcium Level 7.5mg/dL (8.5-10.1) Magnesium Level 2.2mg/dL (1.6-2.6) Total Bilirubin 0.3mg/dL (0.0-1.2) Aspartate Amino Transf (AST/SGOT) 103U/L (0-50) Alanine Aminotransferase (ALT/SGPT) 97U/L (0-44) Alkaline Phosphatase 59U/L (25-160) Troponin T < 0.010ug/L (0.0-0.011) 1.00ug/L (0.0-0.011) Total Protein 5.3g/dL (6.4-8.4) Albumin 3.5g/dL (3.4-5.0) Lactic Acid Level 8.1mmol/L (0.4-2.0) Phosphorus Level 7.6mg/dL (2.5-4.9) Total Creatine Kinase 139U/L (21-232) 1916U/L (21-232) Creatine Kinase MB 2.2ng/mL (0.0-10.4) 227.6ng/mL (0.0-10.4) Creatine Kinase MB % % (0.0-5.0) 11.9% (0.0-5.0) Pro-B-Type Natriuretic Peptide 119.4pg/mL (0-376) Hold [place] Top Tube Received (Received) Test 01/19/17 23:17 01/20/17 00:35 01/20/17 00:40 01/20/17 03:10 White Blood Count 30.4th/mm3 (3.8-10.1) Red Blood Count 5.58mil/mm3 (4.40-5.80) Hemoglobin 15.3g/dL (13.8-17.2) Hematocrit 46.6% (41.0-50.0) Mean Corpuscular Volume 83.5fL (81-100) Mean Corpuscular Hemoglobin 27.4pg (27.0-35.0) Mean Corpuscular Hemoglobin Concent 32.8% (32.0-37.0) Red Cell Distribution Width 15.4% (12.3-15.4) Platelet Count 250bil/L (150-400) Prothrombin Time 11.9sec (8.1-12.5) Prothromb Time International Ratio 1.11ratio Sodium Level 140mEq/L (134-144) Potassium Level 3.1mEq/L (3.5-5.2) Chloride Level 102mEq/L (97-108) Carbon Dioxide Level 14mmol/L (18-29) Blood Urea Nitrogen 19mg/dL (8-27) Creatinine 0.95mg/dL (0.76-1.27) Estimat Glomerular Filtration Rate 84mL/min (>59) Glucose Level 324mg/dL (60-99) Lactic Acid Level 5.0mmol/L (0.4-2.0) 6.1mmol/L (0.4-2.0) 8.5mmol/L (0.4-2.0) Calcium Level 7.9mg/dL (8.5-10.1) Total Bilirubin 0.9mg/dL (0.0-1.2) Aspartate Amino Transf (AST/SGOT) 340U/L (0-50) Alanine Aminotransferase (ALT/SGPT) 203U/L (0-44) Alkaline Phosphatase 75U/L (25-160) Total Creatine Kinase 2868U/L (21-232) Total Protein 7.1g/dL (6.4-8.4) Albumin 4.5g/dL (3.4-5.0) Urine Color Yellow (YELLOW) Urine Appearance Clear (CLEAR,HAZY) Urine pH 5.0 (5.0-8.0) Urine Specific Dewey 1.015 (1.003-1.035) Urine Protein Negativemg/dL (NEG,TRACE) Urine Glucose (UA) >1000mg/dL (NEGATIVE) Urine Ketones 40mg/dL (NEGATIVE) Urine Occult Blood Large (NEGATIVE) Urine Nitrite Negative (NEGATIVE) Urine Bilirubin Negative (NEGATIVE) Urine Urobilinogen Normalmg/dL (NORMAL) Urine Leukocyte Esterase Negative (NEGATIVE) Urine RBC >50/hpf (0-2) Urine WBC 0-5/hpf (0-5) Urine Epithelial Cells Occasional/hpf (NONE-MOD) Urine Crystals None seen (NONE SEEN) Urine Bacteria Few/hpf (NONE-FEW) Urine Hyaline Casts None/lpf (NONE) Urine Granular Casts 5-20 (NONE SEEN) Urine Waxy Casts None seen (NONE SEEN) Urine Red Blood Cell Casts None seen (NONE SEEN) Urine White Blood Cell Casts None seen (NONE SEEN) Urine Mucus None seen (None Seen) Urine Trichomonas None seen (NONE SEEN) Urine Yeast None (NONE SEEN) Urinalysis Comment None Urine Culture Reflexed Not indicated Test 01/20/17 04:50 01/20/17 06:35 01/20/17 10:35 White Blood Count 25.2th/mm3 (3.8-10.1) 19.3th/mm3 (3.8-10.1) Red Blood Count 5.32mil/mm3 (4.40-5.80) 5.16mil/mm3 (4.40-5.80) Hemoglobin 14.9g/dL (13.8-17.2) 14.3g/dL (13.8-17.2) Hematocrit 44.3% (41.0-50.0) 43.3% (41.0-50.0) Mean Corpuscular Volume 83.3fL (81-100) 83.9fL (81-100) Mean Corpuscular Hemoglobin 28.0pg (27.0-35.0) 27.7pg (27.0-35.0) Mean Corpuscular Hemoglobin Concent 33.6% (32.0-37.0) 33.0% (32.0-37.0) Red Cell Distribution Width 15.6% (12.3-15.4) 15.7% (12.3-15.4) Platelet Count 242bil/L (150-400) 183bil/L (150-400) Neutrophils (%) (Auto) 88.1% (40-74) 84.3% (40-74) Lymphocytes (%) (Auto) 4.9% (14-46) 5.6% (14-46) Monocytes (%) (Auto) 6.5% (4-12) 9.6% (4-12) Eosinophils (%) (Auto) 0.1% (0-5) 0% (0-5) Basophils (%) (Auto) 0.1% (0-3) 0.1% (0-3) Prothrombin Time 11.8sec (8.1-12.5) Prothromb Time International Ratio 1.10ratio Sodium Level 144mEq/L (134-144) Potassium Level 2.7mEq/L (3.5-5.2) Chloride Level 104mEq/L (97-108) Carbon Dioxide Level 12mmol/L (18-29) Blood Urea Nitrogen 19mg/dL (8-27) Creatinine 1.10mg/dL (0.76-1.27) Estimat Glomerular Filtration Rate 71mL/min (>59) Glucose Level 405mg/dL (60-99) Calcium Level 8.3mg/dL (8.5-10.1) Phosphorus Level 2.2mg/dL (2.5-4.9) 1.9mg/dL (2.5-4.9) Magnesium Level 1.9mg/dL (1.6-2.6) Total Bilirubin 0.7mg/dL (0.0-1.2) Aspartate Amino Transf (AST/SGOT) 333U/L (0-50) Alanine Aminotransferase (ALT/SGPT) 205U/L (0-44) Alkaline Phosphatase 70U/L (25-160) Total Creatine Kinase 4080U/L (21-232) Creatine Kinase MB 553.0ng/mL (0.0-10.4) Creatine Kinase MB % 13.6% (0.0-5.0) Troponin T 3.53ug/L (0.0-0.011) Pro-B-Type Natriuretic Peptide 693.5pg/mL (0-376) Total Protein 7.1g/dL (6.4-8.4) Albumin 4.4g/dL (3.4-5.0) Triglycerides Level 118mg/dL (0-149) Cholesterol Level 199mg/dL (100-199) LDL Cholesterol, Calculated 92.400mg/dL (0-99) VLDL Cholesterol 23.600mg/dL HDL Cholesterol 83mg/dL (>39) Cholesterol/HDL Ratio 2.40 (0.0-4.4) Procalcitonin 0.91ng/mL (0.00-0.08) Lactic Acid Level 11.4mmol/L (0.4-2.0) Microbiology 01/20/17 Blood Culture- pending 01/19/17 MRSA (PCR) - Negative 01/19/17 Sputum Culture- pending Result Diagram: 01/20/17 1035 01/20/17 0450 X-Rays, CTs and MRIs (01/20/17) X-RAY CHEST ONE VIEW, PORTABLE IMPRESSION: Repositioned aortic balloon pump. Dictated and approved by: Gem Rogers M.D. on 01/20/2017 at 9:22 (01/20/17) X-RAY CHEST ONE VIEW, PORTABLE IMPRESSION: 1. Lines and tubes as above. 2. Nodular opacity projected over the left lower lobe. Pulmonary nodule cannot be excluded and continued radiographic followup is recommended. This may represent a nipple shadow. Interpreted and approved by: Gem Rogers MD on 01/20/2017 at 9:30 (01/19/17) CT BRAIN WITHOUT CONTRAST IMPRESSION: No acute intracranial abnormalities. Dictated and approved by: Juan A Lang M.D. on 01/19/2017 at 16:31 Assessment & Plan 66 y/o male with a history of hypertension and hyperlipidemia who presented to the ED intubated, following resuscitation in the field for an out of hospital cardiac arrest. Now status post PCI with stenting of the LAD and placement of intraaortic balloon pump. Hospital and intubation day #1. Out of hospital cardiac arrest secondary to Acute anterior STEMI. Present on admission. - Secondary to acute ST Elevation IN. Total time of CPR by EMS and patient's estimated to be about 25 minutes. He was shocked a total of 3 times and received a total of 4 rounds of epinephrine with ROSC after the final shock. EMS started an epinephrine drip as well as gave amiodarone and bicarb. - Patient underwent urgent PCI with stenting of LAD with three drug-eluting stents. Pt has had various reperfusion related arrhythmias since the catheterization, so has remained on amiodarone. - Continue amiodarone, aspirin, statin and prasugrel per Cardiology. Appreciate recommendations and expertise. - Echocardiogram today, results pending. - Continue temperature regulation, maintain temp 36 degrees C. - XUAN inhibitor and beta britney after patient stabilizes Cardiogenic shock, acute. Present on admission. Stable. - Secondary to STEMI. Patient remained on epinephrine drip overnight and is hemodynamically stable this morning. Epinephrine stopped and Intra-aortic balloon pump removed per Cardiology - Hypotensive following initiation of propofol drip and propofol held. - Received 1L bolus of NS - 1L bolus of LR now, will start norepinephrine if necessary. Acute respiratory failure. Present on admission. Active. - Secondary to cardiac arrest. Patient was found down and not breathing. - Continue mechanical ventilation - Fentanyl, midazolam gtt Concern for anoxic encephalopathy, acute. Present on admission. Active. - Secondary to cardiac arrest and CPR prior to admission for approximately 25minutes, per EMS with ROSC after 4 rounds of epinephrine and three shocks. - Patient remains sedated without meaningful response with seizure like activity overnight while on hypothermia protocol and started on Keppra. - Received IV pushes of lorazepam for acute seizure like activity and Keppra increased to 1,000mg BID. - EEG today, results pending - Continue to titrate sedation as able with frequent neuro checks Seizure-like activity, acute. Not present on admission. - Patient with seizure-like activity after cooling to 32.8 C. Started on Nimbex and received a 1500mg loading dose of Keppra followed by 500mg BID IV. - Keppra increased to 1,000mg IV BID. Received 2mg IV pushes of lorazepam x2 for seizure like activity. - Initiated propofol for additional control with subsequent drop in patient's BP. Propofol discontinued and Bupropion added. - EEG today and results are pending. Will consider Neurology consult pending EEG results. Leukocytosis, acute. Present on admission. Active. - WBC on admission 11.3 and significantly elevated overnight to 30.4. Given the severity of the leukocytosis, less likely to be an acute stress reaction and patient started on Unasyn empirically to cover aspiration pneumonia. - Procalcitonin is elevated, will trend - Blood and sputum cultures, pending - Will continue Unasyn 3g q6, pending culture results. - Repeat CXR, CBC and procalcitonin in the morning Lactic acidosis, acute. Present on admission. Active - Secondary to cardiac arrest and cardiogenic shock. - Treat underlying cardiac causes - Monitor lactic acid q2h until normal. Hyperglycemia, acute. Present on admission. - BG 254 on admission, increased to 324. Possibly acute stress reaction. No history of diabetes. - A1c pending - Continue insulin gtt GI Prophylaxis: H2 britney VTE Prophylaxis: Sub-Q Heparin (Unfractionated) Resuscitation Status: CPR: Attempt Resuscitation Sparkle Thibodeaux DO Jan 20, 2017 11:33
[2017-01-20 15:03] LABS: INR 1.11 ratio
[2017-01-20] MEDS ORDERED: Atropine 1 mg/10 mL (Code) Syringe ONE (16:05)
--- NOTE | 2017-01-20 16:39 | PCM.PNMED ---
Subjective Date of Service Jan 20, 2017 Subjective Mr. Rishi Robles is a 66 year old gentleman with a past medical history of hypertension and hyperlipidemia who presented to the ED via EMS in cardiac arrest. The patient came back home from a 36 mile bike ride with complaints of "indigestion". Shortly afterwards his who was upstairs heard him collapse to the ground. She found him unresponsive and apneic. She called 911 who instructed her to begin CPR. After 6 minutes of CPR by the , EMS arrived to find the patient in ventricular fibrillation. CPR was initiated and he was shocked a total of 3 times and received a total of 4 rounds of epinephrine with ROSC after the final shock. Total time of CPR by EMS was estimated to be about 25 minutes in addition to the 6 minutes by the . En route, he was intubated and EMS started an epinephrine drip as well as gave amiodarone and bicarb. Vital signs on route: HR 50-60 bpm, BP 50-60/30, sp02 90-100%. He arrives to the ED in a normal sinus rhythm with rate in 80s with BP 120/76. Per the , he had no preceding symptoms of chest discomfort or shortness of breath in the prior week. He has no significant cardiac history. Patient underwent emergent PCI with placement of multiple drug eluting stents in the LAD and intraaortic balloon pump placement for hemodynamic instability. Admitted to the CCU and started on epinephrine as well as an amiodarone drip. He experienced seizure-like activity and concern for anoxic brain injury, the patient was placed on keppra.Hemodynamically improved, off pressor support and intraaortic balloon pump removed per Cardiology. Slight drop in blood pressure following IV pushes of lorazepam for acute seizure activity. He is currently completing the rewarming portion of the hypothermia protocol. He remains sedated and mechanically ventilated, on norepinephrine and versed. Exam Vital Signs Vital Sign - Last Date Time Temp Pulse Resp B/P Pulse Ox O2 Delivery O2 Flow Rate FiO2 01/20/17 13:00 52 80/58 100 40 01/20/17 13:00 29 01/20/17 12:00 Ventilator 01/20/17 12:00 33.4 Intake and Output 01/19/17 01/19/17 01/20/17 Cumulative From/Thru 15:00 23:00 07:00 01/19/17 15:42 - 01/20/17 05:54 Intake Total 2129 ml 2129 ml Output Total 4950 ml 4950 ml Balance -2821 ml -2821 ml Intake IV Total 2129 ml 2129 ml Output Urine Total 4950 ml 4950 ml Exam General: Sedated and intubated. Head: Normocephalic, atraumatic. External ears normal. Eyes: Pupils sluggish, Anicteric sclerae. Mouth: Mouth normal, Mucous membranes moist/pink Neck: Neck supple with full range of motion. No JVD Chest& Lungs: Coarse breath sounds bilaterally Cardiovascular: Irregular, Normal S1, Normal S2, No murmurs/rubs/gallops Abdomen: Soft, no masses. Aortic bruit of intraaortic balloon pump audible. Extremities: No cyanosis/clubbing/edema bilaterally Neurological: Sedated and intubated. IVs and Medications Medications Reviewed: Medications were reviewed in detail Lab and Diagnostics Result Diagram: 01/20/17 1035 01/20/17 1035 X-Rays, CTs and MRIs (01/20/17) X-RAY CHEST ONE VIEW, PORTABLE IMPRESSION: Repositioned aortic balloon pump. Dictated and approved by: Gem Rogers M.D. on 01/20/2017 at 9:22 (01/20/17) X-RAY CHEST ONE VIEW, PORTABLE IMPRESSION: 1. Lines and tubes as above. 2. Nodular opacity projected over the left lower lobe. Pulmonary nodule cannot be excluded and continued radiographic followup is recommended. This may represent a nipple shadow. Interpreted and approved by: Gem Rogers MD on 01/20/2017 at 9:30 (01/19/17) CT BRAIN WITHOUT CONTRAST IMPRESSION: No acute intracranial abnormalities. Dictated and approved by: Juan A Lang M.D. on 01/19/2017 at 16:31 Cardiac Echo Impressions Echocardiogram Report Interpretation Summary The left ventricle is normal in size. Left ventricular systolic function is moderately reduced. Left ventricular ejection fraction is estimated to be 40%. LVEF has decreased since prior study. There is hypokinesis to akinesis along the apical, anteroseptum, anterior, and part of the anterolateral wall. LV wall motion abnormalities are new since 06/18/2011. The right ventricle is normal in size and function. The right ventricular systolic pressure is estimated at 37 mmHg assuming a right atrial pressure of 15 mm Hg. The left atrial size is normal. Right atrial size is normal. There is no significant valvular heart disease. The ascending aorta is mildly enlarged. Assessment & Plan 66 y/o male with a history of hypertension and hyperlipidemia who presented to the ED intubated, following resuscitation in the field for an out of hospital cardiac arrest. Now status post PCI with stenting of the LAD and placement of intraaortic balloon pump. Hospital and intubation day #2. Out of hospital cardiac arrest secondary to Acute anterior STEMI. Present on admission. - Secondary to acute ST Elevation NE. Total time of CPR by EMS and patient's estimated to be about 25 minutes. He was shocked a total of 3 times and received a total of 4 rounds of epinephrine with ROSC after the final shock. EMS started an epinephrine drip as well as gave amiodarone and bicarb. - Patient underwent urgent PCI with stenting of LAD with three drug-eluting stents. Pt has had various reperfusion related arrhythmias, which have now resolved. D/C'd amiodarone. - Continue aspirin, statin and prasugrel per Cardiology. Appreciate recommendations and expertise. - Echocardiogram as above. - Continue temperature regulation, maintain temp 36 degrees C. - XUAN inhibitor and beta britney after patient stabilizes Cardiogenic shock, acute. Present on admission. Stable. - Secondary to STEMI. Patient remained on epinephrine drip overnight and is hemodynamically stable this morning. Epinephrine stopped and Intra-aortic balloon pump removed per Cardiology - Norepinephrine ggt. 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 Present on admission. Active. - Secondary to cardiac arrest and CPR prior to admission for approximately 25minutes, per EMS with ROSC after 4 rounds of epinephrine and three shocks. - Patient remains sedated without meaningful response with seizure like activity overnight while on hypothermia protocol and started on Keppra. - Received IV pushes of lorazepam for acute seizure like activity and Keppra increased to 1,000mg BID. - EEG today, results pending - Continue to titrate sedation as able with frequent neuro checks Acute respiratory failure. Present on admission. Active. - Secondary to cardiac arrest. Patient was found down and not breathing. - Continue mechanical ventilation per Pulm/ICU team. - Fentanyl d/c'd. - Midazolam gtt Seizure-like activity, acute. Not present on admission. - Patient with seizure-like activity after cooling to 32.8 C. Started on Nimbex and received a 1500mg loading dose of Keppra followed by 500mg BID IV. - Keppra increased to 1,000mg IV BID. Received 2mg IV pushes of lorazepam x2 for seizure like activity. - Initiated propofol for additional control with subsequent drop in patient's BP. Propofol discontinued and Bupropion added. - EEG today and results are pending. Will consider Neurology consult pending EEG results. Acute reperfusion arrhythmias, present on admission. Resolved. - Amiodarone ggt d/c'd. Leukocytosis, acute. Present on admission. Active. - Likely 2nd to cooling protocol vs. stress reaction following CPR. - Procalcitonin is elevated, will trend - Blood and sputum cultures, pending - Will continue Unasyn 3g q6, pending culture results. - Repeat CXR, CBC and procalcitonin in the morning Lactic acidosis, acute. Present on admission. Improving. - Secondary to cardiac arrest and cardiogenic shock. - Treat underlying cardiac causes - Monitor lactic acid q2h until normal. Hyperglycemia, acute. Present on admission. - BG 254 on admission, increased to 324. Possibly acute stress reaction. No history of diabetes. - A1c pending - Continue insulin gtt Acetaminophen for mild pain when necessary. Bowel regimen Senna and MiraLAX scheduled and PRN. Zofran when necessary for nausea and vomiting. SubQ heparin for now. SCDs in place. High-risk medications: IV fentanyl ggt. Disposition: Patient is admitted under inpatient status with expected length of stay greater than 2 midnights due to severity of presenting symptoms, risk of adverse event, and complexity of treatment plan. GI Prophylaxis: H2 britney VTE Prophylaxis: Sub-Q Heparin (Unfractionated) Resuscitation Status: CPR: Attempt Resuscitation Time spent 55 minutes Attending Statement I interviewed and examined the patient on rounds today. Neurologic outcome is of primary concern. I agree with the assessment and plan as stated above. LUKAS KUHN DO Jan 20, 2017 16:39 Sterling May MD Jan 21, 2017 07:18 Present on admission. Improving. Present on admission. Resolved. Patient Status: Patient is admitted under inpatient status with expected length of stay greater than 2 midnights due to severity of presenting symptoms, risk of adverse event, and complexity of treatment plan. GI Prophylaxis: H2 britney VTE Prophylaxis: Sub-Q Heparin (Unfractionated) Resuscitation Status: CPR: Attempt Resuscitation LUKAS KUHN DO Jan 20, 2017 16:39
--- NOTE | 2017-01-20 17:18 | NUR ---
Pt's gold coloured wedding band removed this am Pt's wedding band appeared tight on his left ring finger. I removed this with 's permission and gave it to her. took this home.
--- NOTE | 2017-01-20 17:20 | NUR ---
Balloon pump catheter removed this am at 10hrs Manual hold for 20 mins by labor training manager crew. Site has remained CDI with good distal pulses 2+. No evidence of bleeding or hematoma today.
--- NOTE | 2017-01-20 17:21 | NUR ---
P: Resp, Cardiac, Neuro, GI, Social I,E: Pt remains on the vent, with sats 100% on 40% FIO2. Scant secretions suctioned and pt does not really have a cough effort even with suction catheter. His lung sounds are more coarse this evening especially in left upper lobe. Pt did have 2 emisis's today, 2nd one being large amount. Both were thick, brown vomitus with large undigested food particles in it. OG had been checked multiple times today for patentcy and just before the 2nd larger volume of emisis, and was functional but the size of the food particles was just too big. is aware of emisis. I also suctioned his ETT just after emisis and only got scant pinkish secretions, no obvious vomitus materals. Pt has been in SR/SB with intermittent 1st degree AVB, IVCD, he was having frequent runs of VT this am, and PVC's but his has decreased throughout the day. He also has intermittent prolonged QT which seems to be rate related. He has been guy on and off, possibly from the cooling protocol. Amiodarone has been turned off per Dr. andrews. Pt was on epi gtt this am but BP was stable and this was titrated off. In addition, as previous note explains, balloon pump was on this am but was DC'd and removed by photo lab specialist. site is [facility]. Pt's BP decreased again this afternoon and 2 seperate boluses given per Dr. Jones, one l LR and one l NS. Norepi was also started and titrated up for BP. He is currently at .25mcg/kg on the norepi and His BP is 132/71. Pt was on nimbex this am, and versed of 6mg with BIS of 5-20. RASS -5. Pupils equal and reactive size 3-4. No cough,no gag. Nimbex was DC'd per Dr. Garcia 0800hrs. Pt has been having episodes of seizure like activity involving his upper extremities with a pronation type motion of his arms. also questionable if this was shivering also. EEG was ordered and performed this afternoon. Pt remains un responsive, no cough no gag but pupils respond as this morning. Pt Has OG which is functional, but pt did have episodes of vomiting as previously described. Pt was on our usual cooling protocol this am with a goal of 33C. dr Jones requested out goal for cooling be changed to 36C and this was adjusted on the arctic sun to increase his temp to 36C. He is currently 35.4C. Pt's family are taking turns at the bedside and are very supportive and asking approp questions.
[2017-01-20 17:53] LABS: INR 1.12 ratio
[2017-01-20 17:55] LABS: EOSINOPHILS % (AUTO) 0 % (0-5); Mean Corpuscular Volume 83.6 fL (81-100)
--- NOTE | 2017-01-20 17:57 | ABG ---
DateTimeAnalyzed 17:50:00 -_ pH ____7.287 - 7.350 7.450 pCO2 ___36.5__ -mmHg 35.0 45.0 pO2 ___88.4__ -mmHg 69.0 116 HCO3- ___16.9__ -mmol/L 22.0 26.0 ABE ___-8.6__ -mmol/L -2.0 2.0 tHb ___13.4__ -g/dL O2Hb ___94.3__ -% COHb ____0.6__ -% MetHb ____0.9__ -% sO2 ___95.7__ -% 25.0 FIO2 ___40.0__ -% PRVC 32 - PEEP ____5.0__ -cmH2O Vt __550.0__ -L Drawn By gj - Date/Time Notified____ 17:57:00 -_ Spontaneous_RR ___24.0__ -b/min Oxygen Device 1 VENTILATOR - Notified By gj - Notified Whom ___DR. BRO - B 762 -mmHg tO2 ___17.8__ -Vol% Heladio test _Positive -
[2017-01-20 17:59] LABS: BASOPHILS % (AUTO) 0.1 % (0-3); MONOCYTES % (AUTO) 14.2 % (4-12); Mean Corpuscular Hemoglobin 27.6 pg (27.0-35.0); NEUTROPHILS % (AUTO) 78.2 % (40-74); Platelet Count 194 bil/L (150-400)
[2017-01-20 18:02] LABS: Magnesium 2.3 mg/dL (1.6-2.6); Phosphorus 1.3 mg/dL (2.5-4.9)
[2017-01-20 18:27] LABS: TROPONIN T 3.98 ug/L (0.0-0.011)
[2017-01-20] MEDS ORDERED: Sodium Chloride LOK Flush 10 mL Syringe IVFLUSH PRN ×2 (18:45)
--- NOTE | 2017-01-20 19:39 | CONS ---
[address] [address] CONSULTATION REPORT PATIENT: EDDIE DÍAZ : 1950 MR#: [id number] ADMIT: 01/19/2017 JOB ID: [id number] DATE OF SERVICE: 01/20/2017 REQUESTING: Clinical service, hospitalist and Cardiology. HISTORY OF ILLNESS: The patient is a 66-year-old who sustained an [id number] cardiac arrest yesterday and was admitted to [facility] intensive care unit following resuscitation and successful intervention with three stents placed in the left anterior descending artery. He has a history of mild hypertension and dyslipidemia. He is a never smoker. There is a family history for premature coronary disease with his father requiring bypass surgery in his 50s. The patient was in his usual state of health and completed a 35 mile bike ride earlier on the day of his arrest. He and his returned home when he was complaining of a chest discomfort that he described as "indigestion." The patient's went to shower and as she left the shower she could hear "gasping" sounds. She ran to find her unresponsive and with frothy white material in his mouth, still making agonal respiratory efforts. She called 911 and was instructed to begin bystander CPR. She maintained compressions until 1st responders arrived. The patient was found to be in ventricular fibrillation and after approximately 20 minutes of resuscitation with multiple rounds of epinephrine and defibrillation, he experienced return of spontaneous circulation but had no evidence of awakening. He was intubated and transported to [facility]. He was taken to the catheterization laboratory where he was found to have acute occlusion of the left anterior descending. He had three sequential stents placed with good flow achieved. He had markedly elevated left ventricular end-diastolic pressure along with hypotension and an intraaortic balloon pump was placed and an epinephrine infusion was begun. He was transferred to the intensive care unit, and we were asked to participate in his care upon my arrival at the hospital this morning. His is at the bedside. She furnishes the above history which is augmented by review of his chart record. He is currently sedated and pharmacologically paralyzed on mechanical ventilation. He has been therapeutically cooled to a core temperature of 33 per hypothermia orders placed at the time of his admission to ICU. PAST MEDICAL HISTORY: 1. Hypertension. 2. Dyslipidemia. MEDICATIONS: 1. Hydrochlorothiazide. 2. Atorvastatin. DRUG ALLERGIES: None known. SOCIAL HISTORY: He is and retired. FAMILY HISTORY: Father with CABG in his 50s, ultimately dying of cardiac disease in his 80s. His five siblings are alive and well as are his two adult children. REVIEW OF SYSTEMS: Limited to discussion with the patient's who describes him to be in his usual state of health and denied any acute illnesses. She denied any recent reports of nausea, vomiting, syncope, dyspnea, PND, orthopnea, lower extremity edema or prior myocardial infarction, stroke, heart failure, or heart murmur. PHYSICAL EXAMINATION: This is a well-developed, slightly obese gentleman who appears his stated age. He is orotracheally intubated. His blood pressure is currently 122/60 on norepinephrine infusion and his heart rate is 64 and regular, respirations are 14 on a ventilator rate of 14, FiO2 is 40% with an O2 saturation of 99%. His temperature is 33.4 degrees centigrade. HEENT exam: Head is normocephalic, atraumatic. Gaze appears conjugate, although extraocular movements are not assessed. Pupils are equal and 4 mm with very sluggish reaction. Conjunctivae noninjected. Sclerae anicteric. Visible oral mucosa appears moist without exudate, ulceration or obvious trauma. An endotracheal tube and orogastric tube are both in place with orogastric tube draining light, clear, bilious fluid. The neck shows midline trachea without adenopathy or crepitus. The chest shows some crepitus to pressure in the sternal area, but there is no subcutaneous crepitus suggestive of air in his tissues. On auscultation, he has good air movement in all ghosh with some scattered crackles at both bases. No wheezing is heard. Cardiac exam shows a distant regularly regular rhythm. In the morning, exam was obscured by the intraaortic balloon pump. Upon its withdrawal, I cannot appreciate any murmurs or rubs. His abdomen is soft, nontender. Bowel tones are absent. There is no mass, bruit or organomegaly. Extremities are warm with 1+ pulse at both radial and dorsalis pedis bilaterally. DATABASE: As per the electronic medical record. LABORATORY AND IMAGING: Chest x-ray shows appropriate position of devices and clear lung ghosh. His chemistries show a sodium of 147, potassium 3.5, chloride of 111, total CO2 of 11, BUN of 19, creatinine 1.21, random glucose of 302. Troponin is 3.71 and CK-MB is greater than 600. Total calcium 8.1, magnesium 2.7, both AST and ALT elevated at 299 and 202 respectively. CBC shows a hemoglobin of 14.3, hematocrit of 43, WBC of 19.3 and 183,000 platelets. IMPRESSION: 1. [id number] cardiac arrest in the setting of an ST-elevation myocardial infarction involving left anterior descending artery. Status post successful percutaneous coronary intervention to left anterior descending with three sequential stents. 2. Cardiogenic shock. Postprocedure-now resolved. IABP removed. 3. Coma following cardiac arrest. Remains on therapeutic temperature management with goal temperature of 36 degrees centigrade. His neurologic outcome and prognosis is quite guarded given the presence of early-onset seizures or myoclonic activity witnessed after admission to intensive care unit. Personally, I have observed just some shivering this afternoon, but he does also appear to have an extensor response both spontaneously and in response to noxious stimuli at times that appears to be decerebrate in appearance. 4. History of dyslipidemia. 5. History of hypertension. I had a fairly lengthy discussion with the patient's at his bedside and later in the morning with his two adult children regarding the situation and the patient's prognosis for recovery. At this point, they agree with continued aggressive support. During the mid afternoon, he did develop significant bradycardia and worsening hypotension with heart rates into the low 40 range and systolic blood pressures despite norepinephrine of approximately 80. His propofol was discontinued and amiodarone has been held after discussion with his product marketing consultant. Heart rate has slowly risen to approximately 60 and blood pressure has improved which has allowed us to wean some of his norepinephrine. We are awaiting the formal report on his EEG, although I did observe some of the tracing while the csr technician was performing the study, and I did not observe any obvious burst suppression pattern or epileptiform discharges. There was no response to stimulus. RECOMMEND: 1. Target temperature management to goal temp 36 degree centigrade x24 and careful attention to avoid any fever above 37 degrees for at least the 1st 72 hours. 2. Routine intensive care unit prophylaxis for stress-induced ulceration and venous thromboembolism. 3. Serial neurologic exams on minimal sedation once hypothermia complete. 4. Consider neurologic consultation at 72 hours in the absence of awakening to assist in prognostication and family decision-making. Thank for requesting pulmonary critical care consultation. We will continue to follow with you while he remains critically ill. HIEN
--- NOTE | 2017-01-20 20:00 | NUR ---
Low glucose Pt has received 2 25cc bolus's of D50 for low blood sugar, responding well to this, but dropping the 2nd time. MD notified and order for D5LR received.
--- NOTE | 2017-01-20 20:01 | NUR ---
Head CT on hold Pt had a head CT this am on his way to CCU. Another was ordered this am, however, pt has been unstable today to return to CT. Checked with Dr. Hugo camarena and order on hold for now.
[2017-01-20] MEDS ORDERED: Chlorhexidine 0.12% 15 mL Oral Solution MT SCH (20:30)
[2017-01-20] MEDS: LacriLube S.O.P. 3.5 Gm Ophthalmic Ointment BOTH_EYES SCH (20:36)
[2017-01-20] MEDS: levETIRAcetam Inj 1,000 MG in IV Premix 1 EACH IV SCH (20:37)
[2017-01-20] MEDS: Dextrose 5% Lactated Ringer's 1,000 ML IV SCH (20:37)
[2017-01-20] MEDS: Propofol Inj 1,000,000 MCG in IV Premix 1 EACH IV SCH (21:57)
--- NOTE | 2017-01-20 22:00 | NUR ---
Spoke with Dr. Beard about pt's possible seizure activity, pt's waveforms and high peak pressures along with resp. rate on ventilator was a concern. Dr. Beard agreed to order ativan gtt but order was not received. Propofol order was received. Call Dr. Arias again to verify order for propfol rather than ativan. Dr. Arias stated that he spoke with Dr. Tavera and decided to use propofol and try to increase versed for seizure activity.
[2017-01-20 23:06] LABS: Mean Corpuscular Hemoglobin 27.7 pg (27.0-35.0); Mean Corpuscular Volume 83.4 fL (81-100); NEUTROPHILS % (AUTO) 86.6 % (40-74); Platelet Count 216 bil/L (150-400)
[2017-01-20 23:07] LABS: BASOPHILS % (AUTO) 0.1 % (0-3); EOSINOPHILS % (AUTO) 0 % (0-5); MONOCYTES % (AUTO) 8.6 % (4-12)
--- NOTE | 2017-01-20 23:14 | PROCED ---
[address] [address] EEG PATIENT: EDDIE DÍAZ : 1950 MR#: [id number] ADMIT: 01/19/2017 JOB ID: [id number] DATE OF SERVICE: 01/20/2017 REQUESTING PHYSICIAN: Sparkle Thibodeaux DO. CLINICAL HISTORY: The patient is a 66-year-old male with an episode of syncope, currently on propofol, which stopped one hour prior to the test. DESCRIPTION: While awake and with eyes closed, there are 2-3 Hz activity. The patient is unresponsive. Occasional sharps are seen, but no epileptiform abnormality seen. Shivering is noted which shows muscle artifact but no epileptiform abnormalities. Activation: Photic stimulation does not reveal any photic driving. Hyperventilation cannot be performed while patient is intubated. IMPRESSION: Abnormal electroencephalogram due to slowing. No epileptiform abnormalities seen and no electrophysiologic evidence to suggest seizures. Shivering episodes are associated with only muscle artifact. Recommend repeat EEG if clinical suspicion for epilepsy is high or the patient fails to regain consciousness. Slow activity can be seen due to medications or generalized brain dysfunction or metabolic problems. Recommend repeat EEG if patient fails to regain consciousness. MTDD
[2017-01-20 23:24] LABS: INR 1.09 ratio
[2017-01-20 23:47] LABS: Magnesium 1.8 mg/dL (1.6-2.6)
--- NOTE | 2017-01-20 23:48 | ABG ---
DateTimeAnalyzed 23:42:00 -_ pH ____7.302 - 7.350 7.450 pCO2 ___32.1__ -mmHg 35.0 45.0 pO2 154 -mmHg 69.0 116 HCO3- ___15.4__ -mmol/L 22.0 26.0 ABE ___-9.6__ -mmol/L -2.0 2.0 tHb ___13.3__ -g/dL O2Hb ___96.9__ -% COHb ____0.5__ -% MetHb ____1.1__ -% sO2 ___98.5__ -% 25.0 FIO2 ___40.0__ -% PEEP ____5.0__ -cmH2O Set_RR ___24.0__ -b/min Vt __550.0__ -L Drawn By AF - Date/Time Notified____ 23:47:00 -_ Spontaneous_RR ___24.0__ -b/min Oxygen Device 1 VENTILATOR - Notified By AF - B 761 -mmHg tO2 ___18.4__ -Vol% Heladio test _Positive -
[2017-01-21] VITALS (10 sets, daily range): BP systolic 91–125; BP diastolic 39–90; PULSE 58–70; RESP 24–32; O2SAT 98–100
[2017-01-21 00:02] LABS: TROPONIN T 4.81 ug/L (0.0-0.011)
[2017-01-21] MEDS: Heparin 5,000 Unit/mL Inj SUBQ SCH ×3 (00:16→17:50)
[2017-01-21] MEDS: Chlorhexidine 0.12% 15 mL Oral Solution MT SCH ×6 (00:17→20:25)
[2017-01-21] MEDS: Ampicillin-Sulbactam Inj 3,000 MG in 0.9% Sodium Chloride 100 ML IV SCH ×4 (00:50→18:30)
[2017-01-21] MEDS ORDERED: DEXTROSE 5% IV ONE (01:25)
[2017-01-21] MEDS ORDERED: VALPROATE SODIUM IV ONE (01:25)
--- NOTE | 2017-01-21 01:38 | PCM.PNMED ---
Subjective Date of Service Jan 21, 2017 Subjective Interim Progress Note - Pt continued to seize overnight despite midazolam gtt and Keppra, with occasional PRN Ativan. His HR was in the 70s - 80s and BP was 130s/80s, so restarted his propofol gtt and increased midazolam gtt. However, he continued to seize, which caused increased peak pressures on the vent and began to raise his temperature over 36 C. - Ordered loading dose of valproic acid 2000 mg IV Exam Vital Signs Vital Sign - Last Date Time Temp Pulse Resp B/P Pulse Ox O2 Delivery O2 Flow Rate FiO2 01/20/17 23:50 71 100/74 100 40 01/20/17 20:30 36.4 35 Mechanical Ventilator Intake and Output 01/20/17 01/20/17 01/21/17 Cumulative From/Thru 14:58 22:58 06:58 01/19/17 15:42 - 01/20/17 18:00 Intake Total 3590 ml 5719 ml Output Total 1300 ml 6250 ml Balance 2290 ml -531 ml Intake IV Total 3590 ml 5719 ml Output Urine Total 1000 ml 5950 ml Gastric Drainage Total 100 ml 100 ml Emesis 200 ml 200 ml Lab and Diagnostics Result Diagram: 01/20/17225701/20/178 X-Rays, CTs and MRIs (01/20/17) X-RAY CHEST ONE VIEW, PORTABLE IMPRESSION: Repositioned aortic balloon pump. Dictated and approved by: Gem Rogers M.D. on 01/20/2017 at 9:22 (01/20/17) X-RAY CHEST ONE VIEW, PORTABLE IMPRESSION: 1. Lines and tubes as above. 2. Nodular opacity projected over the left lower lobe. Pulmonary nodule cannot be excluded and continued radiographic followup is recommended. This may represent a nipple shadow. Interpreted and approved by: Gem Rogers MD on 01/20/2017 at 9:30 (01/19/17) CT BRAIN WITHOUT CONTRAST IMPRESSION: No acute intracranial abnormalities. Dictated and approved by: Juan A Lang M.D. on 01/19/2017 at 16:31 Cardiac Echo Impressions Echocardiogram Report Interpretation Summary The left ventricle is normal in size. Left ventricular systolic function is moderately reduced. Left ventricular ejection fraction is estimated to be 40%. LVEF has decreased since prior study. There is hypokinesis to akinesis along the apical, anteroseptum, anterior, and part of the anterolateral wall. LV wall motion abnormalities are new since 06/18/2011. The right ventricle is normal in size and function. The right ventricular systolic pressure is estimated at 37 mmHg assuming a right atrial pressure of 15 mm Hg. The left atrial size is normal. Right atrial size is normal. There is no significant valvular heart disease. The ascending aorta is mildly enlarged. Assessment & Plan 66 y/o male with a history of hypertension and hyperlipidemia who presented to the ED intubated, following resuscitation in the field for an out of hospital cardiac arrest. Now status post PCI with stenting of the LAD and placement of intraaortic balloon pump. Hospital and intubation day #2. Out of hospital cardiac arrest secondary to Acute anterior STEMI. Present on admission. - Secondary to acute ST Elevation LA. Total time of CPR by EMS and patient's estimated to be about 25 minutes. He was shocked a total of 3 times and received a total of 4 rounds of epinephrine with ROSC after the final shock. EMS started an epinephrine drip as well as gave amiodarone and bicarb. - Patient underwent urgent PCI with stenting of LAD with three drug-eluting stents. Pt has had various reperfusion related arrhythmias, which have now resolved. D/C'd amiodarone. - Continue aspirin, statin and prasugrel per Cardiology. Appreciate recommendations and expertise. - Echocardiogram as above. - Continue temperature regulation, maintain temp 36 degrees C. - XUAN inhibitor and beta britney after patient stabilizes Cardiogenic shock, acute. Present on admission. Stable. - Secondary to STEMI. Patient remained on epinephrine drip overnight and is hemodynamically stable this morning. Epinephrine stopped and Intra-aortic balloon pump removed per Cardiology - Norepinephrine ggt. 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 Present on admission. Active. - Secondary to cardiac arrest and CPR prior to admission for approximately 25minutes, per EMS with ROSC after 4 rounds of epinephrine and three shocks. - Patient remains sedated without meaningful response with seizure like activity overnight while on hypothermia protocol and started on Keppra. - Received IV pushes of lorazepam for acute seizure like activity and Keppra increased to 1,000mg BID. - EEG today, results pending - Continue to titrate sedation as able with frequent neuro checks Acute respiratory failure. Present on admission. Active. - Secondary to cardiac arrest. Patient was found down and not breathing. - Continue mechanical ventilation per Pulm/ICU team. - Fentanyl d/c'd. - Midazolam gtt Seizure-like activity, acute. Not present on admission. - Patient with seizure-like activity after cooling to 32.8 C. Started on Nimbex and received a 1500mg loading dose of Keppra followed by 500mg BID IV. - Keppra increased to 1,000mg IV BID. Received 2mg IV pushes of lorazepam x2 for seizure like activity. - Initiated propofol for additional control with subsequent drop in patient's BP. Propofol discontinued and Bupropion added. - EEG today and results are pending. Will consider Neurology consult pending EEG results. Acute reperfusion arrhythmias, present on admission. Resolved. - Amiodarone ggt d/c'd. Leukocytosis, acute. Present on admission. Active. - Likely 2nd to cooling protocol vs. stress reaction following CPR. - Procalcitonin is elevated, will trend - Blood and sputum cultures, pending - Will continue Unasyn 3g q6, pending culture results. - Repeat CXR, CBC and procalcitonin in the morning Lactic acidosis, acute. Present on admission. Improving. - Secondary to cardiac arrest and cardiogenic shock. - Treat underlying cardiac causes - Monitor lactic acid q2h until normal. Hyperglycemia, acute. Present on admission. - BG 254 on admission, increased to 324. Possibly acute stress reaction. No history of diabetes. - A1c pending - Continue insulin gtt Acetaminophen for mild pain when necessary. Bowel regimen Senna and MiraLAX scheduled and PRN. Zofran when necessary for nausea and vomiting. SubQ heparin for now. SCDs in place. High-risk medications: IV fentanyl ggt. Disposition: Patient is admitted under inpatient status with expected length of stay greater than 2 midnights due to severity of presenting symptoms, risk of adverse event, and complexity of treatment plan. GI Prophylaxis: H2 britney VTE Prophylaxis: Sub-Q Heparin (Unfractionated) Resuscitation Status: CPR: Attempt Resuscitation Attending Statement The patient was seen and examined together with Dr. Beard on 01/21 and I agree with the history, exam and plan as outlined in the note above. Marvin Beard Jan 21, 2017 01:38 Jimmy Armendariz MD Jan 22, 2017 04:08
--- NOTE | 2017-01-21 02:37 | NUR ---
Notified Dr. Beard regarding increase in seizure like activity. Valproate sodium ordered. Dr. Beard also notified regarding inability to obtain accurate BP's second to pt's muscle tensing. No new orders were received.
[2017-01-21] MEDS: Propofol Inj 1,000,000 MCG in IV Premix 1 EACH IV SCH ×2 (04:25→18:30)
[2017-01-21] MEDS: Norepineph 8,000 mCg/250 mL NS 8,000 MCG in IV Premix 1 EACH IV SCH ×3 (05:02→21:46)
--- NOTE | 2017-01-21 05:44 | NUR ---
Pt's BP's have been very labile. Attempting to decrease seizure like activity with increase in versed and propofol. Ativan 1 mg IVP also given with little to no affect. Pt continues to have seizure like activity despite multiple calls to Dr. Beard for additional orders. Ventilatory support has improved with vent waveforms. Will continue to monitor pt closely.
[2017-01-21 05:45] LABS: Mean Corpuscular Volume 83.5 fL (81-100)
[2017-01-21 05:46] LABS: BASOPHILS % (AUTO) 0 % (0-3); EOSINOPHILS % (AUTO) 0 % (0-5); MONOCYTES % (AUTO) 7.3 % (4-12); Mean Corpuscular Hemoglobin 27.9 pg (27.0-35.0); Platelet Count 177 bil/L (150-400)
[2017-01-21 05:49] LABS: INR 1.07 ratio
[2017-01-21 06:22] LABS: Magnesium 2.7 mg/dL (1.6-2.6); Phosphorus 1.4 mg/dL (2.5-4.9)
--- NOTE | 2017-01-21 06:22 | ABG ---
DateTimeAnalyzed 06:17:00 -_ pH ____7.416 - 7.350 7.450 pCO2 ___27.9__ -mmHg 35.0 45.0 pO2 159 -mmHg 69.0 116 HCO3- ___17.6__ -mmol/L 22.0 26.0 ABE ___-5.3__ -mmol/L -2.0 2.0 tHb ___12.6__ -g/dL O2Hb ___96.9__ -% COHb ____0.8__ -% MetHb ____1.1__ -% sO2 ___98.8__ -% 25.0 FIO2 ___40.0__ -% PEEP ____5.0__ -cmH2O Set_RR ___24.0__ -b/min Vt __550.0__ -L Drawn By AF - Date/Time Notified____ 06:22:00 -_ Spontaneous_RR ___24.0__ -b/min Oxygen Device 1 VENTILATOR - Notified By AF - B 762 -mmHg tO2 ___17.4__ -Vol% Heladio test _Positive -
[2017-01-21 06:23] LABS: TROPONIN T 4.33 ug/L (0.0-0.011)
[2017-01-21] MEDS: levETIRAcetam Inj 1,000 MG in IV Premix 1 EACH IV SCH ×2 (07:41→20:25)
[2017-01-21] MEDS: Famotidine Inj 20 MG in IV Premix 1 EACH IV SCH ×2 (07:41→20:25)
[2017-01-21] MEDS: LacriLube S.O.P. 3.5 Gm Ophthalmic Ointment BOTH_EYES SCH ×2 (07:41→20:27)
[2017-01-21] MEDS: Dextrose 5% Lactated Ringer's 1,000 ML IV SCH (08:14)
[2017-01-21] MEDS ORDERED: Valproic Acid 50 mg/mL 5 mL Solution PO SCH (08:30)
[2017-01-21] MEDS: Valproic Acid 50 mg/mL 5 mL Solution PO SCH ×2 (08:52→20:26)
[2017-01-21] MEDS ORDERED: Potassium Phos (mMol) Inj 30 MMOL in Dextrose 5% 250 ML IV ONE (09:35)
--- NOTE | 2017-01-21 09:40 | PCM.PNMED ---
Subjective Date of Service Jan 21, 2017 Subjective Patient remains sedated and mechanically ventilated with continued myoclonus activity overnight and propofol restarted. Still requiring pressor support but tolerated the propofol with only modest increase in norepinephrine. He received IV pushes of lorazepam in addition to a loading dose of valproic acid and appears comfortable this morning without obvious seizure like activity. Hospital /intubation day #2. Exam Vital Signs Vital Sign - Last Date Time Temp Pulse Resp B/P Pulse Ox O2 Delivery O2 Flow Rate FiO2 01/21/17 08:15 68 120/90 99 40 01/21/17 04:30 Ventilator 01/21/17 04:30 35.1 24 Intake and Output 01/20/17 01/20/17 01/21/17 Cumulative From/Thru 15:00 23:00 07:00 01/19/17 15:42 - 01/21/17 06:26 Intake Total 3590 ml 2520 ml 8239 ml Output Total 1300 ml 750 ml 7000 ml Balance 2290 ml 1770 ml 1239 ml Intake IV Total 3590 ml 2460 ml 8179 ml Tube Irrigant 60 ml 60 ml Output Urine Total 1000 ml 550 ml 6500 ml Gastric Drainage Total 100 ml 100 ml 200 ml Emesis 200 ml 100 ml 300 ml Exam General: Sedated and mechanically ventilated. ETT in place. HEENT: Normocephalic, atraumatic. Pupils equal, round, and sluggish but reactive to light. Mucosa dry Cardiovascular: Distant heart tones with regular rate and rhythm, no murmurs, rubs, or gallops appreciated Pulmonary: Symmetric chest rise with equal air entry bilaterally, lungs sounds coarse with mild diffuse crackles, no wheezing. Abdomen: Soft, nondistended, bowel tones diminished. Extremities: No cyanosis or edema. Neurological: Sedated, intermittent generalized myoclonus of upper/lower extremities bilaterally. IVs and Medications Medications Reviewed: Medications were reviewed in detail Lab and Diagnostics Laboratory Tests Test 01/20/17 10:35 01/20/17 14:30 01/20/17 16:38 01/20/17 18:25 White Blood Count 19.3th/mm3 (3.8-10.1) 26.5th/mm3 (3.8-10.1) Red Blood Count 5.16mil/mm3 (4.40-5.80) 4.75mil/mm3 (4.40-5.80) Hemoglobin 14.3g/dL (13.8-17.2) 13.1g/dL (13.8-17.2) Hematocrit 43.3% (41.0-50.0) 39.7% (41.0-50.0) Mean Corpuscular Volume 83.9fL (81-100) 83.6fL (81-100) Mean Corpuscular Hemoglobin 27.7pg (27.0-35.0) 27.6pg (27.0-35.0) Mean Corpuscular Hemoglobin Concent 33.0% (32.0-37.0) 33.0% (32.0-37.0) Red Cell Distribution Width 15.7% (12.3-15.4) 15.7% (12.3-15.4) Platelet Count 183bil/L (150-400) 194bil/L (150-400) Neutrophils (%) (Auto) 84.3% (40-74) 78.2% (40-74) Lymphocytes (%) (Auto) 5.6% (14-46) 7.0% (14-46) Monocytes (%) (Auto) 9.6% (4-12) 14.2% (4-12) Eosinophils (%) (Auto) 0% (0-5) 0% (0-5) Basophils (%) (Auto) 0.1% (0-3) 0.1% (0-3) Sodium Level 147mEq/L (134-144) 147mEq/L (134-144) Potassium Level 3.5mEq/L (3.5-5.2) 3.7mEq/L (3.5-5.2) Chloride Level 111mEq/L (97-108) 114mEq/L (97-108) Carbon Dioxide Level 11mmol/L (18-29) 16mmol/L (18-29) Blood Urea Nitrogen 19mg/dL (8-27) 20mg/dL (8-27) Creatinine 1.21mg/dL (0.76-1.27) 0.95mg/dL (0.76-1.27) Estimat Glomerular Filtration Rate 64mL/min (>59) 84mL/min (>59) Glucose Level 302mg/dL (60-99) 67mg/dL (60-99) Calcium Level 8.1mg/dL (8.5-10.1) 7.8mg/dL (8.5-10.1) Phosphorus Level 1.9mg/dL (2.5-4.9) 1.3mg/dL (2.5-4.9) Magnesium Level 2.7mg/dL (1.6-2.6) 2.3mg/dL (1.6-2.6) Total Bilirubin 0.5mg/dL (0.0-1.2) 0.5mg/dL (0.0-1.2) Aspartate Amino Transf (AST/SGOT) 299U/L (0-50) 241U/L (0-50) Alanine Aminotransferase (ALT/SGPT) 202U/L (0-44) 159U/L (0-44) Alkaline Phosphatase 66U/L (25-160) 48U/L (25-160) Total Creatine Kinase 3853U/L (21-232) 3710U/L (21-232) Creatine Kinase MB > 600.0ng/mL (0.0-10.4) 595.6ng/mL (0.0-10.4) Creatine Kinase MB % 15.6% (0.0-5.0) 16.1% (0.0-5.0) Troponin T 3.71ug/L (0.0-0.011) 3.98ug/L (0.0-0.011) Total Protein 6.5g/dL (6.4-8.4) 5.7g/dL (6.4-8.4) Albumin 4.3g/dL (3.4-5.0) 3.4g/dL (3.4-5.0) Prothrombin Time 11.9sec (8.1-12.5) 12.0sec (8.1-12.5) Prothromb Time International Ratio 1.11ratio 1.12ratio Lactic Acid Level 4.0mmol/L (0.4-2.0) 2.7mmol/L (0.4-2.0) Test 01/20/17 22:58 01/21/17 05:25 White Blood Count 32.3th/mm3 (3.8-10.1) 31.3th/mm3 (3.8-10.1) Red Blood Count 4.77mil/mm3 (4.40-5.80) 4.48mil/mm3 (4.40-5.80) Hemoglobin 13.2g/dL (13.8-17.2) 12.5g/dL (13.8-17.2) Hematocrit 39.8% (41.0-50.0) 37.4% (41.0-50.0) Mean Corpuscular Volume 83.4fL (81-100) 83.5fL (81-100) Mean Corpuscular Hemoglobin 27.7pg (27.0-35.0) 27.9pg (27.0-35.0) Mean Corpuscular Hemoglobin Concent 33.2% (32.0-37.0) 33.4% (32.0-37.0) Red Cell Distribution Width 16.0% (12.3-15.4) 16.3% (12.3-15.4) Platelet Count 216bil/L (150-400) 177bil/L (150-400) Neutrophils (%) (Auto) 86.6% (40-74) 88.0% (40-74) Lymphocytes (%) (Auto) 4.1% (14-46) 4.2% (14-46) Monocytes (%) (Auto) 8.6% (4-12) 7.3% (4-12) Eosinophils (%) (Auto) 0% (0-5) 0% (0-5) Basophils (%) (Auto) 0.1% (0-3) 0% (0-3) Band Neutrophils % 1% (1-5) Prothrombin Time 11.7sec (8.1-12.5) 11.5sec (8.1-12.5) Prothromb Time International Ratio 1.09ratio 1.07ratio Sodium Level 146mEq/L (134-144) 143mEq/L (134-144) Potassium Level 4.5mEq/L (3.5-5.2) 4.5mEq/L (3.5-5.2) Chloride Level 112mEq/L (97-108) 110mEq/L (97-108) Carbon Dioxide Level 16mmol/L (18-29) 17mmol/L (18-29) Blood Urea Nitrogen 23mg/dL (8-27) 23mg/dL (8-27) Creatinine 0.97mg/dL (0.76-1.27) 1.14mg/dL (0.76-1.27) Estimat Glomerular Filtration Rate 82mL/min (>59) 68mL/min (>59) Glucose Level 93mg/dL (60-99) 140mg/dL (60-99) Lactic Acid Level 2.1mmol/L (0.4-2.0) 3.1mmol/L (0.4-2.0) Calcium Level 8.2mg/dL (8.5-10.1) 8.0mg/dL (8.5-10.1) Phosphorus Level 2.0mg/dL (2.5-4.9) 1.4mg/dL (2.5-4.9) Magnesium Level 1.8mg/dL (1.6-2.6) 2.7mg/dL (1.6-2.6) Total Bilirubin 0.7mg/dL (0.0-1.2) 0.8mg/dL (0.0-1.2) Aspartate Amino Transf (AST/SGOT) 311U/L (0-50) 313U/L (0-50) Alanine Aminotransferase (ALT/SGPT) 174U/L (0-44) 164U/L (0-44) Alkaline Phosphatase 54U/L (25-160) 50U/L (25-160) Total Creatine Kinase 7723U/L (21-232) 8691U/L (21-232) Creatine Kinase MB 600.0ng/mL (0.0-10.4) 560.4ng/mL (0.0-10.4) Creatine Kinase MB % 7.8% (0.0-5.0) 6.4% (0.0-5.0) Troponin T 4.81ug/L (0.0-0.011) 4.33ug/L (0.0-0.011) Total Protein 5.8g/dL (6.4-8.4) 5.7g/dL (6.4-8.4) Albumin 3.9g/dL (3.4-5.0) 3.4g/dL (3.4-5.0) Microbiology 01/20/17 Blood Culture -NO GROWTH AFTER 24 HOURS 01/19/17 MRSA (PCR) -Final, Complete 01/19/17 Sputum Culture -MODERATE NORMAL WOODY PRESENT Result Diagram: 01/21/17 0525 01/21/17 0525 X-Rays, CTs and MRIs (01/20/17) X-RAY CHEST ONE VIEW, PORTABLE IMPRESSION: Repositioned aortic balloon pump. Dictated and approved by: Gem Rogers M.D. on 01/20/2017 at 9:22 (01/20/17) X-RAY CHEST ONE VIEW, PORTABLE IMPRESSION: 1. Lines and tubes as above. 2. Nodular opacity projected over the left lower lobe. Pulmonary nodule cannot be excluded and continued radiographic followup is recommended. This may represent a nipple shadow. Interpreted and approved by: Gem Rogers MD on 01/20/2017 at 9:30 (01/19/17) CT BRAIN WITHOUT CONTRAST IMPRESSION: No acute intracranial abnormalities. Dictated and approved by: Juan A Lang M.D. on 01/19/2017 at 16:31 Cardiac Echo Impressions Echocardiogram Report Interpretation Summary The left ventricle is normal in size. Left ventricular systolic function is moderately reduced. Left ventricular ejection fraction is estimated to be 40%. LVEF has decreased since prior study. There is hypokinesis to akinesis along the apical, anteroseptum, anterior, and part of the anterolateral wall. LV wall motion abnormalities are new since 06/18/2011. The right ventricle is normal in size and function. The right ventricular systolic pressure is estimated at 37 mmHg assuming a right atrial pressure of 15 mm Hg. The left atrial size is normal. Right atrial size is normal. There is no significant valvular heart disease. The ascending aorta is mildly enlarged. Assessment & Plan 66 y/o male with a history of hypertension and hyperlipidemia who presented to the ED intubated, following resuscitation in the field for an out of hospital cardiac arrest. Now status post PCI with stenting of the LAD and placement of intraaortic balloon pump. Hospital and intubation day #2 Out of hospital cardiac arrest secondary to Acute anterior STEMI. Present on admission. - Total time of CPR by EMS and patient's estimated to be about 25 minutes. Reportedly shocked a total of 3 times and received 4 rounds of epinephrine with ROSC after the final shock. In route, EMS started epinephrine drip as well as gave amiodarone and bicarb. - Patient underwent urgent PCI with stenting of LAD with three drug-eluting stents on 01/20 with various reperfusion related arrhythmias afterward and admitted to CCU on amiodarone drip. Amiodarone discontinued 01/20 for bradycardia and pt has remained in sinus rhythm. - Echocardiogram showed an EF of 40% as well as hypokinesis to akinesis along the apical, anteroseptum, anterior, and part of the anterolateral wall. - Continue aspirin, statin and prasugrel per Cardiology. Appreciate recommendations and expertise. - Continue temperature regulation, revise temperature goal to 36-37 degrees C. - XUAN inhibitor and beta britney after patient stabilizes Cardiogenic shock, acute. Present on admission. Stable. - Secondary to STEMI. Post-catheterization patient remained on epinephrine drip overnight.Epinephrine discontinued the following morning (01/20) and Intra- aortic balloon pump removed per Cardiology - Norepinephrine started for persistent hypotension despite holding propofol. Patient received boluses of NS and LR with moderate improvement in BP and norepinephrine titrated up overnight. - Still requiring pressor support with norepinephrine and tolerating propofol, which was restarted for ongoing seizure like activity. - Wean pressor support as able Acute respiratory failure. Present on admission. Active. - Secondary to cardiac arrest. Patient was found down and not breathing. - Continue mechanical ventilation - Fentanyl, midazolam gtt Concern for anoxic encephalopathy, acute. Present on admission. Active. - Secondary to cardiac arrest and CPR prior to admission for approximately 25minutes, per EMS with ROSC after 4 rounds of epinephrine and three shocks. - Patient remains sedated without meaningful response with seizure like activity overnight. Received IV pushes of lorazepam, midazolam increased and propofol reinitiated with limited response. Given loading dose of valproic acid. - EEG showed slow activity but no epileptiform abnormalities which is difficult to assess while patient sedated. Will likely repeat EEG if patient fails to regain consciousness. - Continue Keppra 1,000mg BID, valproic acid 500mg BID. - Fentanyl, midazolam and propofol. Will continue to titrate sedation as able with frequent neuro checks - Repeat head CT planned for today if patient stable for transport and able to minimize myoclonus Seizure-like activity, acute. Not present on admission. Stable. - Patient with seizure-like activity after cooling to 32.8 C. Started on Nimbex and received a 1500mg loading dose of Keppra followed by 500mg BID IV. Keppra increased to 1,000mg IV BID 01/20. - Received IV pushes of lorazepam, propofol reinitiated, and valproic acid started for seizure like activity overnight. - EEG results as above. - Continue Bupropion, Keppra, propofol and valproic acid - Will continue to titrate sedation as able with frequent neuro checks Leukocytosis, acute. Present on admission. Active. - WBC on admission 11.3 and remains significant elevated at 31.3. Patient started on Unasyn empirically to cover aspiration pneumonia. - Procalcitonin elevated on admission at 0.91 with negative blood and sputum cultures - Repeat CXR, CBC and procalcitonin in the morning Lactic acidosis, acute. Present on admission. Active - Secondary to cardiac arrest and cardiogenic shock. - Treat underlying cardiac causes - Monitor lactic acid q2h until normal. Hyperglycemia, acute. Present on admission. - BG 254 on admission, increased to 324.Likely acute stress reaction. No history of diabetes. - A1c 5.6 - Continue insulin gtt, bedside glucose monitoring GI Prophylaxis: H2 britney VTE Prophylaxis: Sub-Q Heparin (Unfractionated) Resuscitation Status: CPR: Attempt Resuscitation Sparkle Thibodeaux DO Jan 21, 2017 09:40 Wallace Tavera MD Jan 22, 2017 07:34 Sparkle Thibodeaux DO Jan 21, 2017 09:40 01/19/17 Sputum Culture -MODERATE NORMAL WOODY PRESENT Result Diagram: 01/21/17 0525 01/21/17 0525 X-Rays, CTs and MRIs (01/20/17) X-RAY CHEST ONE VIEW, PORTABLE IMPRESSION: Repositioned aortic balloon pump. Dictated and approved by: Gem Rogers M.D. on 01/20/2017 at 9:22 (01/20/17) X-RAY CHEST ONE VIEW, PORTABLE IMPRESSION: 1. Lines and tubes as above. 2. Nodular opacity projected over the left lower lobe. Pulmonary nodule cannot be excluded and continued radiographic followup is recommended. This may represent a nipple shadow. Interpreted and approved by: Gem Rogers MD on 01/20/2017 at 9:30 (01/19/17) CT BRAIN WITHOUT CONTRAST IMPRESSION: No acute intracranial abnormalities. Dictated and approved by: Juan A Lang M.D. on 01/19/2017 at 16:31 Cardiac Echo Impressions Echocardiogram Report Interpretation Summary The left ventricle is normal in size. Left ventricular systolic function is moderately reduced. Left ventricular ejection fraction is estimated to be 40%. LVEF has decreased since prior study. There is hypokinesis to akinesis along the apical, anteroseptum, anterior, and part of the anterolateral wall. LV wall motion abnormalities are new since 06/18/2011. The right ventricle is normal in size and function. The right ventricular systolic pressure is estimated at 37 mmHg assuming a right atrial pressure of 15 mm Hg. The left atrial size is normal. Right atrial size is normal. There is no significant valvular heart disease. The ascending aorta is mildly enlarged. Assessment & Plan 66 y/o male with a history of hypertension and hyperlipidemia who presented to the ED intubated, following resuscitation in the field for an out of hospital cardiac arrest. Now status post PCI with stenting of the LAD and placement of intraaortic balloon pump. Hospital and intubation day #2. Out of hospital cardiac arrest secondary to Acute anterior STEMI. Present on admission. - Secondary to acute ST Elevation WI. Total time of CPR by EMS and patient's estimated to be about 25 minutes. He was shocked a total of 3 times and received a total of 4 rounds of epinephrine with ROSC after the final shock. EMS started an epinephrine drip as well as gave amiodarone and bicarb. - Patient underwent urgent PCI with stenting of LAD with three drug-eluting stents. Pt has had various reperfusion related arrhythmias, which have now resolved. D/C'd amiodarone. - Continue aspirin, statin and prasugrel per Cardiology. Appreciate recommendations and expertise. - Echocardiogram as above. - Continue temperature regulation, maintain temp 36 degrees C. - XUAN inhibitor and beta britney after patient stabilizes Cardiogenic shock, acute. Present on admission. Stable. - Secondary to STEMI. Patient remained on epinephrine drip overnight and is hemodynamically stable this morning. Epinephrine stopped and Intra-aortic balloon pump removed per Cardiology - Norepinephrine ggt. 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 Present on admission. Active. - Secondary to cardiac arrest and CPR prior to admission for approximately 25minutes, per EMS with ROSC after 4 rounds of epinephrine and three shocks. - Patient remains sedated without meaningful response with seizure like activity overnight while on hypothermia protocol and started on Keppra. - Received IV pushes of lorazepam for acute seizure like activity and Keppra increased to 1,000mg BID. - EEG today, results pending - Continue to titrate sedation as able with frequent neuro checks Acute respiratory failure. Present on admission. Active. - Secondary to cardiac arrest. Patient was found down and not breathing. - Continue mechanical ventilation per Pulm/ICU team. - Fentanyl d/c'd. - Midazolam gtt Seizure-like activity, acute. Not present on admission. - Patient with seizure-like activity after cooling to 32.8 C. Started on Nimbex and received a 1500mg loading dose of Keppra followed by 500mg BID IV. - Keppra increased to 1,000mg IV BID. Received 2mg IV pushes of lorazepam x2 for seizure like activity. - Initiated propofol for additional control with subsequent drop in patient's BP. Propofol discontinued and Bupropion added. - EEG today and results are pending. Will consider Neurology consult pending EEG results. Acute reperfusion arrhythmias, present on admission. Resolved. - Amiodarone ggt d/c'd. Leukocytosis, acute. Present on admission. Active. - Likely 2nd to cooling protocol vs. stress reaction following CPR. - Procalcitonin is elevated, will trend - Blood and sputum cultures, pending - Will continue Unasyn 3g q6, pending culture results. - Repeat CXR, CBC and procalcitonin in the morning Lactic acidosis, acute. Present on admission. Improving. - Secondary to cardiac arrest and cardiogenic shock. - Treat underlying cardiac causes - Monitor lactic acid q2h until normal. Hyperglycemia, acute. Present on admission. - BG 254 on admission, increased to 324. Possibly acute stress reaction. No history of diabetes. - A1c pending - Continue insulin gtt Acetaminophen for mild pain when necessary. Bowel regimen Senna and MiraLAX scheduled and PRN. Zofran when necessary for nausea and vomiting. SubQ heparin for now. SCDs in place. High-risk medications: IV fentanyl ggt. Disposition: Patient is admitted under inpatient status with expected length of stay greater than 2 midnights due to severity of presenting symptoms, risk of adverse event, and complexity of treatment plan. GI Prophylaxis: H2 britney VTE Prophylaxis: Sub-Q Heparin (Unfractionated) Resuscitation Status: CPR: Attempt Resuscitation Sparkle Thibodeaux DO Jan 21, 2017 09:40
--- NOTE | 2017-01-21 10:22 | DRSVH ---
PROCEDURE: X-RAY CHEST ONE VIEW, PORTABLE ([id number]) INDICATIONS: respiratory failure TECHNIQUE: One view of the chest was acquired. COMPARISON: [facility], CR, XR CHEST 1VW (PORTABLE), 01/20/2017, 8:56. FINDINGS: Surgical changes and devices: ETT tip projected 6.7 cm above the rodolfo. Stable positioning of right IJ CVL and nasogastric tube. Lungs and pleura: No pleural effusions or pneumothorax. Lungs are clear. Mediastinum: Mediastinal contours appear normal. Heart size is normal. Bones and chest wall: No suspicious bony lesions. Overlying soft tissues appear unremarkable. IMPRESSION: No definite acute cardiopulmonary disease. Dictated by: Jason Davis RR Interpreted: Nadiya Browne MD on 01/21/2017 at 10:19 Transcribed by: ABBIE on 01/21/2017 at 10:21 Approved by: Nadiya Browne MD, PhD on 01/21/2017 at 10:29
--- NOTE | 2017-01-21 10:26 | NUR ---
NUTRITION FOLLOW-UP: Assess: 66 YO M admitted to CCU for cardiac arrest secondary to STEMI. 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 Currently intubated and on hypothermia protocol. Pt has been NPO X 2 day. Pt with some seizure-like activity per notes. EEG results pending. Holding off on starting TF today as pt has had some emesis via OGT. PMHX: HTN, HLD. DIET: NPO. LABS: Reviewed. Cl 110, CO2 17, Glu 140, Lactic Acid 3.1, Ca 8.0, phos 1.4, AST 313, ALT 164, Alb 3.4 MEDICATIONS: Reviewed. Pressor. GI: No BM noted. SKIN: No PU per WC ANTHROPOMETRICS: Wt: 99.6 kg, BMI 30.6kg/m2, admit wt: 96.5kg, IBW: 78kg ESTIMATED NEEDS: VENT (based off admit wt) Calories: 9007-0584 kcal/day (20-25 kcal/kg BW) Protein: 145-174 g/day (1.5-1.8 g/kg BW) NUTRITION DIAGNOSIS: 1) Inadequate oral intake related to decreased ability to consume sufficient energy as evidenced by NPO/Vent status. --PERSISTS INTERVENTION: 1) If TF to start, recommend Jevity 1.5 @ 10ml/hr. If tolerated, advance by 10ml q 6 hrs until reach goal rate of 73ml/hr to provide 2409kcal/day and 102gpro (100% kcal and 70% pro needs). 2) Recommend add 1 packet prosource QID to better meet protein needs once TF at goal rate. MONITOR/EVALUATE: NPO/Vent status, nutrition support, POC, labs, GI/nutrition status. Follow per high nutrition risk guidelines.
[2017-01-21] MEDS: Midazolam Inj 100 MG in IV Premix 1 EACH IV SCH (11:29)
[2017-01-21] MEDS: fentaNYL 2,500 mCg/250 mL 2,500 MCG in IV Premix 1 EACH IV SCH (11:54)
--- NOTE | 2017-01-21 14:57 | NUR ---
spiritual care: pt request Visited with pt and his today. Pt was intubated and non-communicative but told me about his cardiac arrest, their life together, their family and the care he has received at [facility]. We spoke of cristiano, values and wedding vows. Pt seems to have a strong support system of family ( and two adult children) and friends. Prayed with pt upon 's request. Spiritual care will continue to follow as needed.
[2017-01-21] MEDS ORDERED: 0.9% Sodium Chloride 500 ML IV ONE (15:20)
--- NOTE | 2017-01-21 17:02 | PCM.PNMED ---
Subjective Date of Service Jan 21, 2017 Subjective Patient remains sedated and mechanically ventilated. Currently on Nomo-thermic protocol. Patient with cough today, without gag reflex. Pupils are reactive to light. Exam Vital Signs Vital Sign - Last Date Time Temp Pulse Resp B/P Pulse Ox O2 Delivery O2 Flow Rate FiO2 01/21/17 16:00 62 109/61 100 35 01/21/17 12:00 Ventilator 01/21/17 12:00 35.9 24 Intake and Output 01/20/17 01/20/17 01/21/17 Cumulative From/Thru 15:00 23:00 07:00 01/19/17 15:42 - 01/21/17 06:26 Intake Total 3590 ml 2520 ml 8239 ml Output Total 1300 ml 750 ml 7000 ml Balance 2290 ml 1770 ml 1239 ml Intake IV Total 3590 ml 2460 ml 8179 ml Tube Irrigant 60 ml 60 ml Output Urine Total 1000 ml 550 ml 6500 ml Gastric Drainage Total 100 ml 100 ml 200 ml Emesis 200 ml 100 ml 300 ml Exam General: Sedated and mechanically ventilated. ETT in place. HEENT: Normocephalic, atraumatic. Pupils equal, round, and sluggish but reactive to light. Mucosa dry, cough, no gag reflex. Cardiovascular: Distant heart tones with regular rate and rhythm, no murmurs, rubs, or gallops appreciated Pulmonary: Symmetric chest rise with equal air entry bilaterally, lungs sounds coarse with mild diffuse crackles, no wheezing. Abdomen: Soft, nondistended, bowel tones diminished. Extremities: No cyanosis or edema. Neurological: Sedated, intermittent generalized myoclonus of upper/lower extremities bilaterally. IVs and Medications Medications Reviewed: Medications were reviewed in detail Lab and Diagnostics Result Diagram: 01/21/1752401/21/17 0525 X-Rays, CTs and MRIs (01/20/17) X-RAY CHEST ONE VIEW, PORTABLE IMPRESSION: Repositioned aortic balloon pump. Dictated and approved by: Gem Rogers M.D. on 01/20/2017 at 9:22 (01/20/17) X-RAY CHEST ONE VIEW, PORTABLE IMPRESSION: 1. Lines and tubes as above. 2. Nodular opacity projected over the left lower lobe. Pulmonary nodule cannot be excluded and continued radiographic followup is recommended. This may represent a nipple shadow. Interpreted and approved by: Gem Rogers MD on 01/20/2017 at 9:30 (01/19/17) CT BRAIN WITHOUT CONTRAST IMPRESSION: No acute intracranial abnormalities. Dictated and approved by: Juan A Lang M.D. on 01/19/2017 at 16:31 Cardiac Echo Impressions Echocardiogram Report Interpretation Summary The left ventricle is normal in size. Left ventricular systolic function is moderately reduced. Left ventricular ejection fraction is estimated to be 40%. LVEF has decreased since prior study. There is hypokinesis to akinesis along the apical, anteroseptum, anterior, and part of the anterolateral wall. LV wall motion abnormalities are new since 06/18/2011. The right ventricle is normal in size and function. The right ventricular systolic pressure is estimated at 37 mmHg assuming a right atrial pressure of 15 mm Hg. The left atrial size is normal. Right atrial size is normal. There is no significant valvular heart disease. The ascending aorta is mildly enlarged. Assessment & Plan Mr. Rishi Robles is a 66 year old gentleman with a history of hypertension and hyperlipidemia who presented to the ED intubated, following resuscitation in the field for an out of hospital cardiac arrest. Now status post PCI with stenting of the LAD and placement of intraaortic balloon pump. Hospital and intubation day #3 Out of hospital cardiac arrest secondary to Acute anterior STEMI. Present on admission. - Total time of CPR by EMS ~ 25 minutes. 3x shocks and 4 rounds of epi with ROSC after the final shock. In route, EMS started epinephrine drip as well as gave amiodarone and bicarb. - Patient underwent urgent PCI with stenting of LAD with three drug-eluting stents on 01/20 with various reperfusion related arrhythmias afterward and admitted to CCU on amiodarone drip. Amiodarone discontinued 01/20 for bradycardia and pt has remained in sinus rhythm. - Echocardiogram showed an EF of 40% as well as hypokinesis to akinesis along the apical, anteroseptum, anterior, and part of the anterolateral wall. - Continue aspirin, statin and prasugrel per Cardiology. Appreciate recommendations and expertise. - Continue temperature regulation, maintain temp 36-37 degrees C. - XUAN inhibitor and beta britney after patient stabilizes. 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 Present on admission. Active. - Secondary to cardiac arrest and CPR prior to admission for approximately 25minutes, per EMS with ROSC after 4 rounds of epinephrine and three shocks. - Patient remains sedated without meaningful response with seizure like activity overnight. Received IV pushes of lorazepam, midazolam increased and propofol reinitiated with limited response. Given loading dose of valproic acid. - EEG showed slow activity but no epileptiform abnormalities which is difficult to assess while patient sedated. Will likely repeat EEG if patient fails to regain consciousness. - Continue Keppra 1,000mg BID, valproic acid 500mg BID will start to ween off. - Fentanyl, midazolam and propofol. Will continue to titrate sedation as able with frequent neuro checks - Repeat head CT planned when patient is more stable. Cardiogenic shock, acute. Present on admission. Stable. - Secondary to STEMI. Post-catheterization patient remained on epinephrine drip overnight.Epinephrine discontinued the following morning (01/20) and Intra- aortic balloon pump removed per Cardiology - Norepinephrine started for persistent hypotension despite holding propofol. Patient received boluses of NS and LR with moderate improvement in BP and norepinephrine titrated up overnight. - Still requiring pressor support with norepinephrine and tolerating propofol, which was restarted for ongoing seizure like activity. - Wean pressor support as able Acute respiratory failure. Present on admission. Active. - Secondary to cardiac arrest. Patient was found down and not breathing. - Continue mechanical ventilation. - Fentanyl, midazolam gtt - ICU/PULM team managing, Seizure-like activity, acute. Not present on admission. Stable. - Patient with seizure-like activity after cooling to 32.8 C. Started on Nimbex and received a 1500mg loading dose of Keppra followed by 500mg BID IV. Keppra increased to 1,000mg IV BID 01/20. - Received IV pushes of lorazepam, propofol reinitiated, and valproic acid started for seizure like activity overnight. - EEG results as above. - Continue Bupropion, Keppra, propofol and valproic acid - Will continue to titrate sedation as able with frequent neuro checks Leukocytosis, acute. Present on admission. Active. - WBC on admission 11.3 and remains significant elevated at 31.3. Patient started on Unasyn empirically to cover aspiration pneumonia. - Procalcitonin elevated on admission at 0.91 with negative blood and sputum cultures - Repeat CXR, CBC and procalcitonin in the morning Lactic acidosis, acute. Present on admission. Active - Secondary to cardiac arrest and cardiogenic shock. - Treat underlying cardiac causes - Monitor lactic acid q2h until normal. Hyperglycemia, acute. Present on admission. - BG 254 on admission, increased to 324.Likely acute stress reaction. No history of diabetes. - A1c 5.6 - Continue insulin gtt, bedside glucose monitoring Acetaminophen for mild pain when necessary. Bowel regimen Senna and MiraLAX scheduled and PRN. Zofran when necessary for nausea and vomiting. SubQ heparin for now. SCDs in place. High-risk medications: IV Fentanyl ICU: Vent settings: 35%, 5, 24, 550 ABG: as above. I/Os: 150 out OG Lines: IV Fluids: D5 LR @ 75 ml/hour + NS @ 100 ml/hour Drips: NE 0.18, Propofol @ 5, Versed @ 70, Fentanyl @ 50. Disposition: Likely here for > 2 midnights. Dependent upon mental, cardiac and respiratory function. Will be discharged to home when medically stable. GI Prophylaxis: H2 britney VTE Prophylaxis: Sub-Q Heparin (Unfractionated) Resuscitation Status: CPR: Attempt Resuscitation Time spent 35 minutes Attending Statement I examined the patient today and reviewed data with consultants. I agree with the assessment and plan as stated above. LUKAS KUHN DO Jan 21, 2017 17:02 Sterling May MD Jan 22, 2017 07:13
--- NOTE | 2017-01-21 17:19 | NUR ---
P: Resp, Cardiac, Neuro, Social, Nutrition, Skin I,E: Pt continues on the vent, sats have been 100% on 40% FIO2 so this was decreased to 35% and sats are currently 100%. Pt is suctioned infrequently for small thick pink mitchell secretions. He has a rare cough effort, but not usually when I am suctioning his ETT. Lung sounds have coarse lung sounds on and off. Pt is in SR with IVCD and at times a prolonged T. No ectopi noted today. Levophend was decreased to 0.18mcg/kg today and BP is in te 110's-120's sys with means this afternoon mid to high 70's. Pt did receive a 500cc LR bolus per Resident without a significant response. SV went from 46 down to 41 BP stayed about the same. UOP is adequate. Groin sites are CDI old dressings removed and band aids applied to sites. Pt remains unresponsive, no response to pain at this time, he has a rare cough, no gag with oral suctioning. He has size 3-4 pupils reactive to light left a little slower that right. He has not had tremors or shivering today like yesterday, he has some mild twitching of his hands. MD is aware of this. Pt has been re-warmed to normothermia with goal 36.5 and that is where he is currently. Tylenol was given this am to help prevent fever. Arctic sun remains on to maintain normothermia. Pt has versed at 7mg, Propofol at 5mcg and Fentanyl at 50mcg for pain and sedation. Pt's family continue to be very supportive and have been at the bedside. Pt has OG in to suction, he has not had any emisis today and his OG has been suctioning bile like fluid out in moderate volumes. Noted today pt has a small abrasion on his lower left lip. this is healing well and is not in contact with anything at this time to cause pressure.
[2017-01-21] MEDS: 0.9% Sodium Chloride 1,000 ML IV SCH (17:50)
[2017-01-22] VITALS (12 sets, daily range): BP systolic 117–143; BP diastolic 66–80; PULSE 58–78; RESP 18–26; O2SAT 95–100
[2017-01-22] MEDS: Dextrose 5% Lactated Ringer's 1,000 ML IV SCH ×3 (00:51→16:00)
[2017-01-22] MEDS: Heparin 5,000 Unit/mL Inj SUBQ SCH ×3 (00:51→17:13)
[2017-01-22] MEDS: Chlorhexidine 0.12% 15 mL Oral Solution MT SCH ×6 (00:51→19:49)
[2017-01-22] MEDS: Midazolam Inj 100 MG in IV Premix 1 EACH IV SCH ×2 (00:59→12:59)
[2017-01-22] MEDS: Ampicillin-Sulbactam Inj 3,000 MG in 0.9% Sodium Chloride 100 ML IV SCH ×4 (01:01→19:16)
--- NOTE | 2017-01-22 03:23 | PROG NOTE ---
[address] [address] PROGRESS NOTE PATIENT: EDDIE DÍZA : 1950 MR#: [id number] ADMIT: 01/19/2017 JOB ID: [id number] DATE: 01/21/2017 SUBJECTIVE: Patient is sedated and intubated. There was myoclonic activity overnight, propofol was restarted. Interestingly enough, EEG showed slow activity but no epileptiform abnormalities. The player services representative has been trying to maintain mean arterial pressure in the 80s, and as a result, the patient has been requiring inotropic support with Levophed at 0.18 mcg/kg per minute. CURRENT MEDICATIONS: 1. Versed 7 mg/hour. 2. Levophed 0.18 mcg/kg per minute. 3. Fentanyl 50 mcg/hour. 4. Propofol 5 mcg/kg/minute. 5. Prasugrel 10 mg daily. 6. Aspirin 81 mg daily. 7. Unasyn 3 g IV every 6 hours. 8. Subcu heparin for DVT prophylaxis. 9. Depakote 500 mg twice a day. 10. Atorvastatin 80 mg q.h.s. 11. Keppra dose is 1000 mg per injection, injected every 12 hours. PHYSICAL EXAMINATION: Vital signs: Temperature 36.7, blood pressure 91/39, up to 125/77, pulse 57, up to 70 beats per minute. Satting 98% to 100% on 35% FiO2, intubated and sedated. Eyes: No scleral icterus. Pinpoint pupils. Heart: Normal S1, S2. No murmurs. Lungs: Clear to auscultation anteriorly. Abdomen: Soft, positive bowel sounds. No hepatosplenomegaly. Extremities: Warm, well perfused. No clubbing, cyanosis, or edema. Skin: No rashes or lesions. Bilateral common femoral vascular access site shows no evidence of ecchymosis and no bruit. LABORATORIES: Reviewed. He has elevated white count of 31,000, hematocrit is 37%, platelet count is 177, there is a left shift present. Creatinine 0.9. He has congestive hepatopathy but it seems to be getting better. AST down to 44, ALT 144. Troponin T peaked at . ASSESSMENT AND PLAN: In summary, this is an unfortunate 66-year-old man who suffered [id number] cardiac arrest and extensive anterior ST-elevation myocardial infarction. Troponin T peaking at . He has cardiomyopathy and ongoing pressor requirement presumably due to septic shock rather than cardiogenic shock. He requires multiple sedation medications. Right now, he is stable from cardiovascular standpoint. We had a family meeting with his son Jose and I explained to the patient's son that the patient is at risk for mechanical complications but all necessary steps have been taken to minimize that risk. His prognosis is largely contingent on neurological recovery. Again, we cannot assess for neurological recovery because he is intubated and sedated and just completed cooling protocol. We cannot start beta-britney, nor XUAN inhibitor until such time that inotropes are weaned off. Continue dual antiplatelet therapy for at least a year. Continue statin to minimize the risk of recurrent event. Thank you very much for the opportunity to evaluate him.
[2017-01-22] MEDS: 0.9% Sodium Chloride 1,000 ML IV SCH ×3 (03:50→21:25)
--- NOTE | 2017-01-22 04:14 | ABG ---
DateTimeAnalyzed 04:07:00 -_ pH ____7.447 - 7.350 7.450 pCO2 ___30.9__ -mmHg 35.0 45.0 pO2 132 -mmHg 69.0 116 HCO3- ___21.0__ -mmol/L 22.0 26.0 ABE ___-1.9__ -mmol/L -2.0 2.0 tHb ___11.3__ -g/dL O2Hb ___96.9__ -% COHb ____0.7__ -% MetHb ____1.0__ -% sO2 ___98.6__ -% 25.0 FIO2 ___35.0__ -% Set_RR ___24.0__ -b/min Vt __550.0__ -L Drawn By MK - Date/Time Notified____ 04:14:00 -_ Oxygen Device 1 VENTILATOR - Notified By MK - B 759 -mmHg tO2 ___15.7__ -Vol% Heladio test _Positive -
[2017-01-22 05:21] LABS: BASOPHILS % (AUTO) 0 % (0-3); EOSINOPHILS % (AUTO) 0 % (0-5); MONOCYTES % (AUTO) 6.5 % (4-12); Mean Corpuscular Hemoglobin 28.1 pg (27.0-35.0); Mean Corpuscular Volume 83.7 fL (81-100); NEUTROPHILS % (AUTO) 87.8 % (40-74); Platelet Count 162 bil/L (150-400)
[2017-01-22] MEDS: Propofol Inj 1,000,000 MCG in IV Premix 1 EACH IV SCH ×2 (05:46→21:31)
[2017-01-22 05:59] LABS: Magnesium 2.3 mg/dL (1.6-2.6); Phosphorus 2.1 mg/dL (2.5-4.9)
[2017-01-22] MEDS: Valproic Acid 50 mg/mL 5 mL Solution PO SCH ×2 (08:30→19:50)
[2017-01-22] MEDS: Famotidine Inj 20 MG in IV Premix 1 EACH IV SCH ×2 (09:14→19:50)
[2017-01-22] MEDS: levETIRAcetam Inj 1,000 MG in IV Premix 1 EACH IV SCH ×2 (09:14→19:50)
[2017-01-22] MEDS: Norepineph 8,000 mCg/250 mL NS 8,000 MCG in IV Premix 1 EACH IV SCH ×2 (09:15→21:25)
--- NOTE | 2017-01-22 09:15 | PCM.PNMED ---
Subjective Date of Service Jan 22, 2017 PULMONOLOGY/CRITICAL CARE PROGRESS NOTE . Subjective Patient remains sedated and mechanically ventilated with no acute events overnight. He is without obvious tremor or myoclonic activity this morning. Still requiring pressor support with norepinephrine at 0.14mcg/kg/min and maintaining MAPs in the 70s. Currently sedated with midazolam 7mg/hr, propofol 5mcg/kg/min, fentanyl 50mcg/hr. Hospital/intubation day #3. Exam Vital Signs Vital Sign - Last Date Time Temp Pulse Resp B/P Pulse Ox O2 Delivery O2 Flow Rate FiO2 01/22/17 04:30 36.9 63 24 117/66 98 Mechanical Ventilator 30 Intake and Output 01/21/17 01/21/17 01/22/17 Cumulative From/Thru 15:00 23:00 07:00 01/19/17 15:42 - 01/22/17 06:40 Intake Total 2766 ml 2566 ml 07061 ml Output Total 700 ml 600 ml 8300 ml Balance 2066 ml 1966 ml 5271 ml Intake IV Total 2716 ml 2526 ml 47292 ml Tube Irrigant 50 ml 40 ml 150 ml Output Urine Total 550 ml 500 ml 7550 ml Gastric Drainage Total 150 ml 100 ml 450 ml Emesis 0 ml 0 ml 300 ml Exam General: Sedated and mechanically ventilated. ETT in place. HEENT: Normocephalic, atraumatic. Pupils pinpoint, equal. Mucosa dry Cardiovascular: Distant heart tones with regular rate and rhythm, no murmurs, rubs, or gallops appreciated Pulmonary: Symmetric chest rise with equal air entry bilaterally, lungs sounds coarse with mild diffuse crackles, no wheezing. Abdomen: Soft, nondistended, bowel tones diminished. Extremities: No cyanosis or edema. Neurological: Sedated. IVs and Medications Medications Reviewed: Medications were reviewed in detail Lab and Diagnostics Laboratory Tests Test 01/22/17 00:40 01/22/17 05:04 Sodium Level 145mEq/L (134-144) 146mEq/L (134-144) Potassium Level 4.7mEq/L (3.5-5.2) 4.6mEq/L (3.5-5.2) Chloride Level 113mEq/L (97-108) 114mEq/L (97-108) Carbon Dioxide Level 21mmol/L (18-29) 22mmol/L (18-29) Blood Urea Nitrogen 23mg/dL (8-27) 22mg/dL (8-27) Creatinine 0.92mg/dL (0.76-1.27) 0.93mg/dL (0.76-1.27) Estimat Glomerular Filtration Rate 87mL/min (>59) 86mL/min (>59) Glucose Level 138mg/dL (60-99) 121mg/dL (60-99) Calcium Level 8.1mg/dL (8.5-10.1) 8.0mg/dL (8.5-10.1) Magnesium Level 2.3mg/dL (1.6-2.6) 2.3mg/dL (1.6-2.6) Total Bilirubin 0.7mg/dL (0.0-1.2) 0.7mg/dL (0.0-1.2) Aspartate Amino Transf (AST/SGOT) 244U/L (0-50) 240U/L (0-50) Alanine Aminotransferase (ALT/SGPT) 144U/L (0-44) 133U/L (0-44) Alkaline Phosphatase 49U/L (25-160) 50U/L (25-160) Total Protein 5.1g/dL (6.4-8.4) 5.6g/dL (6.4-8.4) Albumin 3.4g/dL (3.4-5.0) 3.4g/dL (3.4-5.0) White Blood Count 25.3th/mm3 (3.8-10.1) Red Blood Count 4.16mil/mm3 (4.40-5.80) Hemoglobin 11.7g/dL (13.8-17.2) Hematocrit 34.8% (41.0-50.0) Mean Corpuscular Volume 83.7fL (81-100) Mean Corpuscular Hemoglobin 28.1pg (27.0-35.0) Mean Corpuscular Hemoglobin Concent 33.6% (32.0-37.0) Red Cell Distribution Width 16.8% (12.3-15.4) Platelet Count 162bil/L (150-400) Neutrophils (%) (Auto) 87.8% (40-74) Lymphocytes (%) (Auto) 4.6% (14-46) Monocytes (%) (Auto) 6.5% (4-12) Eosinophils (%) (Auto) 0% (0-5) Basophils (%) (Auto) 0% (0-3) Phosphorus Level 2.1mg/dL (2.5-4.9) Procalcitonin 0.81ng/mL (0.00-0.08) Microbiology 01/20/17 Blood Culture - No growth at 2 days 01/19/17 MRSA (PCR) - Negative 01/19/17 Sputum Quality Screen - MODERATE NORMAL WOODY PRESENT Result Diagram: 01/22/17 0504 01/22/17 0504 X-Rays, CTs and MRIs (01/19/17) CT BRAIN WITHOUT CONTRAST IMPRESSION: No acute intracranial abnormalities. Dictated and approved by: Juan A Lang M.D. on 01/19/2017 at 16:31 (01/20/17) X-RAY CHEST ONE VIEW, PORTABLE IMPRESSION: Repositioned aortic balloon pump. Dictated and approved by: Gem Rogers M.D. on 01/20/2017 at 9:22 (01/20/17) X-RAY CHEST ONE VIEW, PORTABLE IMPRESSION: 1. Lines and tubes as above. 2. Nodular opacity projected over the left lower lobe. Pulmonary nodule cannot be excluded and continued radiographic followup is recommended. This may represent a nipple shadow. Interpreted and approved by: Gem Rogers MD on 01/20/2017 at 9:30 (01/21/17) X-RAY CHEST ONE VIEW, PORTABLE IMPRESSION: No definite acute cardiopulmonary disease. Interpreted and approved by: Nadiya Browne MD on 01/21/2017 at 10:19 Cardiac Echo Impressions Echocardiogram Report Interpretation Summary The left ventricle is normal in size. Left ventricular systolic function is moderately reduced. Left ventricular ejection fraction is estimated to be 40%. LVEF has decreased since prior study. There is hypokinesis to akinesis along the apical, anteroseptum, anterior, and part of the anterolateral wall. LV wall motion abnormalities are new since 06/18/2011. The right ventricle is normal in size and function. The right ventricular systolic pressure is estimated at 37 mmHg assuming a right atrial pressure of 15 mm Hg. The left atrial size is normal. Right atrial size is normal. There is no significant valvular heart disease. The ascending aorta is mildly enlarged. Additional Diagnostics (01/20/2017) EEG IMPRESSION: Abnormal electroencephalogram due to slowing. No epileptiform abnormalities seen and no electrophysiologic evidence to suggest seizures. Shivering episodes are associated with only muscle artifact. Recommend repeat EEG if clinical suspicion for epilepsy is high or the patient fails to regain consciousness. Slow activity can be seen due to medications or generalized brain dysfunction or metabolic problems. Recommend repeat EEG if patient fails to regain consciousness. Jazmyn Ramirez MD 01/20/17 1801 Assessment & Plan 66 y/o male with a history of hypertension and hyperlipidemia who presented to the ED intubated, following resuscitation in the field for an out of hospital cardiac arrest. Now status post PCI with stenting of the LAD and placement of intraaortic balloon pump. Hospital and intubation day #3 Out of hospital cardiac arrest secondary to acute anterior STEMI. Present on admission. - Total time of CPR ~25 minutes per EMS with 3 shocks, 4 rounds of epinephrine and ROSC after the final shock. - Status post PCI on 01/20 with 3 drug-eluting stents placed in the LAD and temporary placement of intra-aortic balloon pump (removed 01/20). - Echocardiogram showed an EF of 40% as well as hypokinesis to akinesis along the apical, anteroseptum, anterior, and part of the anterolateral wall. - Continue aspirin, statin and prasugrel per Cardiology. Appreciate recommendations and expertise. - Continue temperature regulation, maintain temp 36-37 degrees C. - XUAN inhibitor and beta britney after patient stabilizes Shock, acute. Present on admission. Stable. - Secondary to acute STEMI with possible infectious component related to aspiration during CPR. - WBC on admission 11.3 and remains elevated at 25.3 but trending down. Pt receiving Unasyn to cover aspiration pneumonia. - Blood/sputum cultures negative thus far - Echocardiogram as above - Wean pressor support as able. Norepinephrine currently at 0.14mcg/kg/min Acute respiratory failure. Present on admission. Active. - Secondary to cardiac arrest. - Continue mechanical ventilation - Fentanyl, midazolam gtt Concern for anoxic encephalopathy, acute. Present on admission. Active. - Secondary to cardiac arrest and CPR prior to admission. Patient remains sedated with no signs of purposeful movement or response. - EEG showed slow activity but no epileptiform abnormalities. - Continue Keppra 1,000mg BID, valproic acid 500mg BID. - Fentanyl, midazolam and propofol. Will continue to titrate sedation as able with frequent neuro checks - Repeat head CT today, results pending. - Consider consult to Neurology, pending CT results; may repeat EEG if patient fails to regain consciousness. Seizure-like activity, acute. Not present on admission. Stable. - Patient with seizure-like activity after cooling to 32.8 C. - EEG results as above. - Continue Bupropion, Keppra, propofol and valproic acid Leukocytosis, acute. Present on admission. Active. - WBC on admission 11.3 and remains elevated at 25.3 but trending down. Patient started on Unasyn empirically to cover aspiration pneumonia. - Procalcitonin trended down, blood/sputum cultures negative - Repeat CXR, CBC Lactic acidosis, acute. Present on admission. Active - Secondary to cardiac arrest and cardiogenic shock. - Treat underlying cardiac causes - Monitor lactic acid until normalized Hyperglycemia, acute. Present on admission. - BG 254 on admission, increased to 324.Likely acute stress reaction. No history of diabetes. - A1c 5.6 - Continue insulin gtt, bedside glucose monitoring GI Prophylaxis: H2 britney VTE Prophylaxis: Sub-Q Heparin (Unfractionated) Resuscitation Status: CPR: Attempt Resuscitation Sparkle Thibodeaux DO Jan 22, 2017 07:08 Sparkle Thibodeaux DO Jan 22, 2017 07:08 VTE Prophylaxis: Sub-Q Heparin (Unfractionated) Resuscitation Status: CPR: Attempt Resuscitation Sparkle Thibodeaux DO Jan 22, 2017 07:08
--- NOTE | 2017-01-22 10:10 | DRSVH ---
PROCEDURE: CT BRAIN WITHOUT CONTRAST ([id number]) INDICATIONS: 66 year-old comatose male status post cardiac arrest. TECHNIQUE: Noncontrast 4.5 mm thick angled axial sections acquired from the foramen magnum to the vertex, with c oronal reformats. COMPARISON: [facility], CT, CT BRAIN WO CON, 01/19/2017, 16:15. FINDINGS: Image quality: Excellent. CSF spaces: Basal cisterns are patent. No extra-axial fluid collections. Ventricles are normal in size and shape. Brain: No midline shift. No intracranial masses or hemorrhage. Loss of manzanares-white matter differenti ation is now apparent involving the posterior left frontal lobe and left parietal lobe. No associated sulcal effacement or other mass effects. Skull and face: Calvarium and visualized facial bones are intact, without suspicious lesions. Endot nadir tube and orogastric tube are now present. Sinuses: There is new bilateral ethmoid sinus mild mucosal thickening. Mild medial left maxillary sin us mucosal thickening has slightly increased. Left mastoid air cell fluid has become apparent. IMPRESSION: 1. Findings consistent with evolving anoxic brain injury involving the left parietal and posterior le ft frontal lobes. 2. Bilateral ethmoid and left maxillary sinus mucosal thickening, presumably related to intubation. M oderate left mastoid air cell fluid is also now present. Dictated by: Juan A Lang M.D. on 01/22/2017 at 10:02 Approved by: Juan A Lang M.D. on 01/22/2017 at 10:08
--- NOTE | 2017-01-22 10:11 | NUR ---
0930- pt taken to CT on portable vent without incident. Returned to ICU and placed back on vent without incident.
--- NOTE | 2017-01-22 10:24 | NUR ---
NUTRITION FOLLOW-UP: Assess: 66 YO M admitted to CCU for cardiac arrest secondary to STEMI. Pt now s/p clinical laboratory technologist. Currently intubated and re-warmed. Pt has been NPO X 3 day. Pt with some seizure-like activity per notes. Received verbal during CCU rounds to start trophic feeds. PMHX: HTN, HLD. DIET: NPO. LABS: Reviewed. Na 146, Cl 114, Glu 121, Ca 8.0, phos 2.1, AST 240, ALT 133 MEDICATIONS: Reviewed. Keppra, Propofol currently running at 7ml/hr providing 185kcal/day. GI: No BM noted. SKIN: No PU per WC ANTHROPOMETRICS: Wt: 103 kg, BMI 31.7kg/m2, admit wt: 96.5kg, IBW: 78kg ESTIMATED NEEDS: VENT (based off admit wt) Calories: 8605-1359 kcal/day (20-25 kcal/kg BW) Protein: 145-174 g/day (1.5-1.8 g/kg BW) Fluids: ~2500ml/day (25ml/kg) NUTRITION DIAGNOSIS: 1) Inadequate oral intake related to decreased ability to consume sufficient energy as evidenced by NPO/Vent status. --PERSISTS INTERVENTION: 1) Recommend start TF of Jevity 1.5 @ 10ml/hr. 2) If tolerated and ok per MD, recommend advance by 10ml q 6 hrs until reach goal rate of 67ml/hr to provide 2211kcal/day and 94gpro (100% kcal and 65% pro needs). 3) Recommend add prosource to better meet protein needs once TF at goal rate. 4) Adjust goal rate based on daily propofol MONITOR/EVALUATE: NPO/Vent status, TF start/jeanette, BM, POC, labs, GI/nutrition status. Follow per high nutrition risk guidelines. Addendum: 01/23/17 at [address] TF started 01/22 and tolerated well. Running @ 10ml/hr. 0 BM. Will continue to monitor per high nutrition risk guidelines
[2017-01-22] MEDS: LacriLube S.O.P. 3.5 Gm Ophthalmic Ointment BOTH_EYES SCH ×2 (10:32→19:49)
--- NOTE | 2017-01-22 13:56 | ABG ---
DateTimeAnalyzed 13:49:00 -_ pH ____7.311 - 7.350 7.450 pCO2 ___45.8__ -mmHg 35.0 45.0 pO2 ___80.8__ -mmHg 69.0 116 HCO3- ___22.4__ -mmol/L 22.0 26.0 ABE ___-3.3__ -mmol/L -2.0 2.0 tHb ___11.8__ -g/dL O2Hb ___93.2__ -% COHb ____0.7__ -% MetHb ____1.0__ -% sO2 ___94.8__ -% 25.0 FIO2 ___30.0__ -% PEEP ____5.0__ -cmH2O Set_RR ___18.0__ -b/min Vt __500.0__ -L Drawn By gj - Date/Time Notified____ 13:56:00 -_ Spontaneous_RR ___22.0__ -b/min Oxygen Device 1 VENTILATOR - Notified By gj - Notified Whom ___DR. FORREST - B 758 -mmHg tO2 ___15.5__ -Vol% Heladio test _Positive -
--- NOTE | 2017-01-22 14:49 | NUR ---
spiritual care: following Today was a tough day for the family of pt who got bad news back from CT scan regarding brain activity. Visited at length with family and talked about grief and how to navigate the coming weeks. Family is interested in organ donation so I spoke to the nurse regarding next steps for that process. Family requested information regarding grief counseling and homes. Provided information. Prayed with family at their request. Spiritual care will continue to follow.
--- NOTE | 2017-01-22 15:21 | PCM.PNMED ---
Subjective Date of Service Jan 22, 2017 Subjective 66 yo man with h/o HTN and dyslipidemia admitted after OOHCA at home, requiring multiple rounds CPR and ACLS before ROSC. No awakening after ROSC and was taken to [facility] house laborer where he underwent PCI with 3 CARLOS ALBERTO to LAD. By time of admission to ICU had already developed seizure like movements. No new critical events over noc. Family at bedside updated as to results of today's CT which showed generalized loss of anderson-white demarcation without shift or any effacement of sulci Exam Vital Signs Vital Sign - Last Date Time Temp Pulse Resp B/P Pulse Ox O2 Delivery O2 Flow Rate FiO2 01/22/17 12:32 36.7 70 20 118/71 96 Mechanical Ventilator 01/22/17 10:05 30 Intake and Output 01/21/17 01/21/17 01/22/17 Cumulative From/Thru 15:00 23:00 07:00 01/19/17 15:42 - 01/22/17 06:40 Intake Total 2766 ml 2566 ml 99207 ml Output Total 700 ml 600 ml 8300 ml Balance 2066 ml 1966 ml 5271 ml Intake IV Total 2716 ml 2526 ml 33841 ml Tube Irrigant 50 ml 40 ml 150 ml Output Urine Total 550 ml 500 ml 7550 ml Gastric Drainage Total 150 ml 100 ml 450 ml Emesis 0 ml 0 ml 300 ml Exam WDWN man orally intubated, appears comfortable Neuro PER 2mm, not clearly reactive, slight dysconjugate gaze, No occulocephalic reflex, No spont movements. Occasional spont breaths on vent Lungs Scattered coarse crackles, NO wheezes CV RRR, no m/g/r Ext Cool, tr edema Lab and Diagnostics Result Diagram: 01/22/17 0504 01/22/17 0504 X-Rays, CTs and MRIs (01/19/17) CT BRAIN WITHOUT CONTRAST IMPRESSION: No acute intracranial abnormalities. Dictated and approved by: Juan A Lang M.D. on 01/19/2017 at 16:31 (01/20/17) X-RAY CHEST ONE VIEW, PORTABLE IMPRESSION: Repositioned aortic balloon pump. Dictated and approved by: Gem Rogers M.D. on 01/20/2017 at 9:22 (01/20/17) X-RAY CHEST ONE VIEW, PORTABLE IMPRESSION: 1. Lines and tubes as above. 2. Nodular opacity projected over the left lower lobe. Pulmonary nodule cannot be excluded and continued radiographic followup is recommended. This may represent a nipple shadow. Interpreted and approved by: Gem Rogers MD on 01/20/2017 at 9:30 (01/21/17) X-RAY CHEST ONE VIEW, PORTABLE IMPRESSION: No definite acute cardiopulmonary disease. Interpreted and approved by: Nadiya Browne MD on 01/21/2017 at 10:19 Cardiac Echo Impressions Echocardiogram Report Interpretation Summary The left ventricle is normal in size. Left ventricular systolic function is moderately reduced. Left ventricular ejection fraction is estimated to be 40%. LVEF has decreased since prior study. There is hypokinesis to akinesis along the apical, anteroseptum, anterior, and part of the anterolateral wall. LV wall motion abnormalities are new since 06/18/2011. The right ventricle is normal in size and function. The right ventricular systolic pressure is estimated at 37 mmHg assuming a right atrial pressure of 15 mm Hg. The left atrial size is normal. Right atrial size is normal. There is no significant valvular heart disease. The ascending aorta is mildly enlarged. Additional Diagnostics (01/20/2017) EEG IMPRESSION: Abnormal electroencephalogram due to slowing. No epileptiform abnormalities seen and no electrophysiologic evidence to suggest seizures. Shivering episodes are associated with only muscle artifact. Recommend repeat EEG if clinical suspicion for epilepsy is high or the patient fails to regain consciousness. Slow activity can be seen due to medications or generalized brain dysfunction or metabolic problems. Recommend repeat EEG if patient fails to regain consciousness. Jazmyn Ramirez MD 01/20/17 1801 Assessment & Plan IMP Out of Hospital cardiac arrest / STEMI, s/p PIC to LAD Anoxic brain injury, This appears likely to be severe given his exam, imaging and early onset myoclonic status. family aware. PLAN Wean propofol and benzos as tolerates DC AEDs if able to wean off sedation meds Neuro exam off all sedation later this week Family meeting to decide goals and plan GI Prophylaxis: H2 britney VTE Prophylaxis: Sub-Q Heparin (Unfractionated) Resuscitation Status: CPR: Attempt Resuscitation Wallace Tavera MD Jan 22, 2017 15:21
[2017-01-22] MEDS: fentaNYL 2,500 mCg/250 mL 2,500 MCG in IV Premix 1 EACH IV SCH (15:59)
--- NOTE | 2017-01-22 17:30 | NUR ---
Social Work-attempted assessment: Data:EMR Reviewed. Pt is a 66 y/o male who was admitted on 01/19/17 for post cardiac arrest per H&P. pt's insurance is [employer] and [employer] and PCP is Saroj rodriguez MD. EMR REviewed. Pt's readmission score is 1. Pt is currently in CCU and on the vent. Pt's family to meet with medical team and discuss goals of care. SW to follow up when assessment is appropriate. SW will continue to follow. Assessment:Pt who is vented on CCU. Plan:SW to follow up with assessment when appropriate. SW will continue to follow. SHARON Hawkins
--- NOTE | 2017-01-22 18:40 | PCM.PNMED ---
Subjective Date of Service Jan 22, 2017 Subjective Patient remains mechanically ventilated, no purposeful movement or signs of mentation with reduced sedatives today. Continued myoclonic activity when sedation is reduced. Without gag reflex. Pupils are not reactive to light. Exam Vital Signs Vital Sign - Last Date Time Temp Pulse Resp B/P Pulse Ox O2 Delivery O2 Flow Rate FiO2 01/22/17 17:34 73 129/74 99 30 01/22/17 17:02 36.9 18 Mechanical Ventilator Intake and Output 01/21/17 01/21/17 01/22/17 Cumulative From/Thru 15:00 23:00 07:00 01/19/17 15:42 - 01/22/17 06:40 Intake Total 2766 ml 2566 ml 98179 ml Output Total 700 ml 600 ml 8300 ml Balance 2066 ml 1966 ml 5271 ml Intake IV Total 2716 ml 2526 ml 11530 ml Tube Irrigant 50 ml 40 ml 150 ml Output Urine Total 550 ml 500 ml 7550 ml Gastric Drainage Total 150 ml 100 ml 450 ml Emesis 0 ml 0 ml 300 ml Exam General: Sedated andventilated. HEENT: Pupils equal, but not reactive to light. No gag reflex. Cardiovascular: Distant heart tones, regular rate , no murmurs, rubs, or gallops appreciated Pulmonary: SLungs sounds coarse with ventilator sounds, no wheezing. Abdomen: Soft, nondistended, bowel tones diminished. Extremities: No cyanosis or edema. Neurological: Sedated, myoclonus controlled. IVs and Medications Medications Reviewed: Medications were reviewed in detail Lab and Diagnostics Result Diagram: 01/22/17 0504 01/22/17 0504 X-Rays, CTs and MRIs (01/19/17) CT BRAIN WITHOUT CONTRAST IMPRESSION: No acute intracranial abnormalities. Dictated and approved by: Juan A Lang M.D. on 01/19/2017 at 16:31 (01/20/17) X-RAY CHEST ONE VIEW, PORTABLE IMPRESSION: Repositioned aortic balloon pump. Dictated and approved by: Gem Rogers M.D. on 01/20/2017 at 9:22 (01/20/17) X-RAY CHEST ONE VIEW, PORTABLE IMPRESSION: 1. Lines and tubes as above. 2. Nodular opacity projected over the left lower lobe. Pulmonary nodule cannot be excluded and continued radiographic followup is recommended. This may represent a nipple shadow. Interpreted and approved by: Gem Rogers MD on 01/20/2017 at 9:30 (01/21/17) X-RAY CHEST ONE VIEW, PORTABLE IMPRESSION: No definite acute cardiopulmonary disease. Interpreted and approved by: Nadiya Browne MD on 01/21/2017 at 10:19 PROCEDURE: CT BRAIN WITHOUT CONTRAST ([id number]) FINDINGS: Image quality: Excellent. Brain: No midline shift. No intracranial masses or hemorrhage. Loss of manzanares- white matter differentiation is now apparent involving the posterior left frontal lobe and left parietal lobe. No associated sulcal effacement or other mass effects. IMPRESSION: 1. Findings consistent with evolving anoxic brain injury involving the left parietal and posterior left frontal lobes. 2. Bilateral ethmoid and left maxillary sinus mucosal thickening, presumably related to intubation. Moderate left mastoid air cell fluid is also now present. Dictated by: Juan A Lang M.D. on 01/22/2017 at 10:02 . Cardiac Echo Impressions Echocardiogram Report Interpretation Summary The left ventricle is normal in size. Left ventricular systolic function is moderately reduced. Left ventricular ejection fraction is estimated to be 40%. LVEF has decreased since prior study. There is hypokinesis to akinesis along the apical, anteroseptum, anterior, and part of the anterolateral wall. LV wall motion abnormalities are new since 06/18/2011. The right ventricle is normal in size and function. The right ventricular systolic pressure is estimated at 37 mmHg assuming a right atrial pressure of 15 mm Hg. The left atrial size is normal. Right atrial size is normal. There is no significant valvular heart disease. The ascending aorta is mildly enlarged. Additional Diagnostics (01/20/2017) EEG IMPRESSION: Abnormal electroencephalogram due to slowing. No epileptiform abnormalities seen and no electrophysiologic evidence to suggest seizures. Shivering episodes are associated with only muscle artifact. Recommend repeat EEG if clinical suspicion for epilepsy is high or the patient fails to regain consciousness. Slow activity can be seen due to medications or generalized brain dysfunction or metabolic problems. Recommend repeat EEG if patient fails to regain consciousness. Jazmyn Ramirez MD 01/20/17 1801 Assessment & Plan Mr. Rishi Robles is a 66 year old gentleman with a history of hypertension and hyperlipidemia who presented to the ED intubated, following resuscitation in the field for an out of hospital cardiac arrest. Now status post PCI with stenting of the LAD, s/p placement of intraaortic balloon pump, s/ p targeted temperature management. Hospital and intubation day #3 Out of hospital cardiac arrest secondary to Acute anterior STEMI. Present on admission. - Total time of CPR by EMS ~ 25 minutes. 3x shocks and 4 rounds of epi with ROSC after the final shock. In route, EMS started epinephrine drip as well as gave amiodarone and bicarb. - Patient underwent urgent PCI with stenting of LAD with three drug-eluting stents on 01/20 with various reperfusion related arrhythmias afterward and admitted to CCU on amiodarone drip. Amiodarone discontinued 01/20 for bradycardia and pt has remained in sinus rhythm. - Echocardiogram showed an EF of 40% as well as hypokinesis to akinesis along the apical, anteroseptum, anterior, and part of the anterolateral wall. - Continue aspirin, statin and prasugrel per Cardiology. Appreciate recommendations and expertise. - Continue temperature regulation, maintain temp 36-37 degrees C. 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 Present on admission. Active. - Secondary to cardiac arrest and CPR prior to admission for approximately 25minutes, per EMS with ROSC after 4 rounds of epinephrine and three shocks. - Patient remains sedated without meaningful response with seizure like activity overnight. Received IV pushes of lorazepam, midazolam increased and propofol reinitiated with limited response. Given loading dose of valproic acid. - EEG showed slow activity but no epileptiform abnormalities which is difficult to assess while patient sedated. To consider repeat EEG if patient fails to regain consciousness. - Continue Keppra 1,000mg BID, valproic acid 500mg BID will start to ween off. - Fentanyl, midazolam and propofol. Will continue to titrate sedation as able. Likely to be complicated by myoclonic activity. - Repeat head CT suggests significant anoxic encephalopathy. Current clinical exam suggests no significant brainstem activity Cardiogenic shock, acute. Present on admission. Stable. - Secondary to STEMI. Post-catheterization patient remained on epinephrine drip overnight.Epinephrine discontinued the following morning (01/20) and Intra- aortic balloon pump removed per Cardiology - Norepinephrine started for persistent hypotension despite holding propofol. Patient received boluses of NS and LR with moderate improvement in BP and norepinephrine titrated up overnight. - Still requiring pressor support with norepinephrine and tolerating propofol, which was restarted for ongoing seizure like activity. - Wean pressor support as able Acute respiratory failure. Present on admission. Active. - Secondary to cardiac arrest. Patient was found down and not breathing. - Continue mechanical ventilation. - Fentanyl, midazolam gtt - ICU/PULM team managing, Seizure-like activity, acute. Not present on admission. Stable. - Patient with seizure-like activity after cooling to 32.8 C. Started on Nimbex and received a 1500mg loading dose of Keppra followed by 500mg BID IV. Keppra increased to 1,000mg IV BID 01/20. - Received IV pushes of lorazepam, propofol reinitiated, and valproic acid started for seizure like activity overnight. - EEG results, suggest that this is myoclonus from hypoxic brain injury and not status epilepticus. - Wean Bupropion, Keppra, propofol and valproic acid - Will continue to titrate sedation as able with frequent neuro checks Leukocytosis, acute. Present on admission. Active. - WBC on admission 11.3 and remains significant elevated at 31.3. Patient started on Unasyn empirically to cover aspiration pneumonia. - Procalcitonin elevated on admission at 0.91 with negative blood and sputum cultures - Repeat CXR, CBC and procalcitonin in the morning Lactic acidosis, acute. Present on admission. Active - Secondary to cardiac arrest and cardiogenic shock. - Treat underlying cardiac causes - Monitor lactic acid q2h until normal. Hyperglycemia, acute. Present on admission. - BG 254 on admission, increased to 324.Likely acute stress reaction. Exacerbated by hypothermia. - A1c 5.6, history of diabetes - Glucose is much better after rewarming IV Acetaminophen for mild pain when necessary. Bowel regimen Senna and MiraLAX scheduled and PRN. Zofran when necessary for nausea and vomiting. SubQ heparin for now. SCDs in place. High-risk medications: IV Fentanyl Disposition: Likely here for > 2 midnights. Dependent upon mental, cardiac and respiratory function. Will be discharged to home when medically stable. GI Prophylaxis: H2 britney VTE Prophylaxis: Sub-Q Heparin (Unfractionated) Resuscitation Status: CPR: Attempt Resuscitation Time spent 30 minutes spent in patient assessment in care coordination including review of data with consultants team members. Sterling May MD Jan 22, 2017 18:40
--- NOTE | 2017-01-22 19:50 | NUR ---
Neuro/Vent: Patient RASS score is -5. Able to wean propofol and versed off this shift without neuro changes. Patient does not have gag reflex and does not cough with suctioning. Patient has frequent posturing and alarms vent with high pressures. Vent settings VC 30%/5PEEP/18RR/500TV. MD Aware. No new orders at this time.
--- NOTE | 2017-01-22 22:53 | NUR ---
P) Neuro/Respiratory Pt. not responding to pain, no cough or gag reflex noted, pupils appear to be minimally reactive. Lungs with coarse breath sounds with some scattered crackles in bases, suctioning small amounts of clear to yellowish phlegm from ET tube. Pt. shaking constantly and fighting vent with peak pressures 45-50, tidal volumes of 2000, stacking breaths then pausing. I) Attempted to sedate with fentanyl and versed with no relief, stopped versed and restarted propofol. E) Pt. now with minimal tremors, vent no longer alarming continuously, peak pressure 28-29, volumes around 500, no stacking noted, propofol at 10mcg/kg/min.
[2017-01-23] VITALS (12 sets, daily range): BP systolic 114–142; BP diastolic 54–103; PULSE 65–82; RESP 18–24; O2SAT 95–100
[2017-01-23] MEDS: Heparin 5,000 Unit/mL Inj SUBQ SCH ×3 (00:52→17:49)
[2017-01-23] MEDS: Chlorhexidine 0.12% 15 mL Oral Solution MT SCH ×6 (00:52→20:28)
[2017-01-23] MEDS: Ampicillin-Sulbactam Inj 3,000 MG in 0.9% Sodium Chloride 100 ML IV SCH ×4 (00:55→19:33)
--- NOTE | 2017-01-23 04:09 | PROG NOTE ---
[address] [address] PROGRESS NOTE PATIENT: EDDIE DÍAZ : 1950 MR#: [id number] ADMIT: 01/19/2017 JOB ID: [id number] DATE: 01/22/2017 SUBJECTIVE: Patient remains intubated and sedated, however, the plan is to wean sedation in the course of the day. Hemodynamically, he has been stable. OBJECTIVE: Vital signs: Temperature 36.9. Blood pressure 117/66, up to 143/80. Pulse 58, up to 78 beats per minute. He is satting 95% to 100% on 30% FiO2. Heart: Normal S1, S2. No murmurs. Lungs: Clear to auscultation anteriorly. Abdomen: Soft, positive bowel sounds. No hepatosplenomegaly. Extremities: Warm, well perfused. No clubbing, cyanosis, or edema. Skin: No rashes or lesions. Neuro exam demonstrates a sedated and intubated patient who is not withdrawing to painful stimuli and does not have evidence of purposeful movement. CURRENT MEDICATIONS: Include: 1. Propofol 5 mcg/kg per minute. 2. Fentanyl 50 mcg/hour. 3. Versed 6 mg/hour. 4. As well as Levophed 0.16 mcg/kg/minute. 5. The patient is also on Unasyn. 6. Atorvastatin 80 mg daily. 7. Valproic acid 500 mg twice a day. 8. Keppra 1000 mg IV twice a day. 9. Prasugrel 10 mg daily. 10. Aspirin 81 mg daily. LABORATORIES: Reviewed. White count is elevated with left shift. Creatinine is 0.9. Transaminases are elevated, but improved from prior. Troponin T peaked at 4.8 and then we stopped checking it. ASSESSMENT AND PLAN: In summary, this is a 66-year-old man with acute myocardial infarction complicated by [id number] cardiac arrest and prolonged resuscitation, now with evidence of seizure-like activity lack of purposeful movement. His neurologic status is limiting his ability to recover right now more so than his cardiovascular issues. Will monitor alongside the critical care team and primary team for neurologic recovery. I understand that right now pressors are kept on to provide an arterial pressure greater than 80 to facilitate optimized neurologic outcome. We will continue to monitor closely. Right now, no changes in medical management are recommended. Thank you for the opportunity to participate in this patient's care.
[2017-01-23] MEDS: Dextrose 5% Lactated Ringer's 1,000 ML IV SCH (06:01)
[2017-01-23] MEDS: LacriLube S.O.P. 3.5 Gm Ophthalmic Ointment BOTH_EYES SCH ×2 (08:29→20:29)
[2017-01-23] MEDS: Famotidine Inj 20 MG in IV Premix 1 EACH IV SCH ×2 (09:02→20:27)
[2017-01-23] MEDS: levETIRAcetam Inj 1,000 MG in IV Premix 1 EACH IV SCH ×2 (09:04→20:27)
[2017-01-23] MEDS: Norepineph 8,000 mCg/250 mL NS 8,000 MCG in IV Premix 1 EACH IV SCH (09:08)
[2017-01-23] MEDS: Propofol Inj 1,000,000 MCG in IV Premix 1 EACH IV SCH (09:12)
--- NOTE | 2017-01-23 09:32 | PCM.PNMED ---
Subjective Date of Service Jan 23, 2017 Subjective Patient sedated and mechanically ventilated with seizure like activity per nursing overnight. Peak pressures elevated and patient stacking breaths with titration off sedation. Propofol restarted with resolution of myoclonus and midazolam stopped. He is without obvious tremor or myoclonic activity this morning. Titrating down on norepinephrine as able to maintain MAP of 80 for cerebral perfusion. Currently sedated with propofol 10mcg/kg/min, fentanyl 50mcg /hr. Hospital/intubation day #4. Exam Vital Signs Vital Sign - Last Date Time Temp Pulse Resp B/P Pulse Ox O2 Delivery O2 Flow Rate FiO2 01/23/17 04:26 69 115/59 100 30 01/23/17 04:00 36.8 18 Mechanical Ventilator Intake and Output 01/22/17 01/22/17 01/23/17 Cumulative From/Thru 15:00 23:00 07:00 01/19/17 15:42 - 01/23/17 06:14 Intake Total 1691 ml 2343 ml 25056 ml Output Total 450 ml 625 ml 9375 ml Balance 1241 ml 1718 ml 8230 ml Intake IV Total 1667 ml 1975 ml 96264 ml Tube Feeding 24 ml 128 ml 152 ml Tube Irrigant 0 ml 240 ml 390 ml Output Urine Total 450 ml 625 ml 8625 ml Gastric Drainage Total 450 ml Emesis 300 ml # Bowel Movements 0 0 Exam General: Sedated and mechanically ventilated. ETT in place. HEENT: Normocephalic, atraumatic. Pupils pinpoint, equal and nonreactive. No scleral icterus. Mucosa moist Cardiovascular: Distant heart tones with regular rate and rhythm, no murmurs, rubs, or gallops appreciated Pulmonary: Symmetric chest rise with equal air entry bilaterally, lungs coarse with mild crackles at the base, no wheezing. Abdomen: Soft, nondistended, bowel tones diminished. Extremities: No cyanosis or edema. Neurological: Sedated. IVs and Medications Medications Reviewed: Medications were reviewed in detail Lab and Diagnostics Test 01/20/17 22:58 01/21/17 05:25 01/22/17 00:40 01/22/17 05:04 White Blood Count 32.3th/mm3 (3.8-10.1) 31.3th/mm3 (3.8-10.1) 25.3th/mm3 (3.8-10.1) Red Blood Count 4.77mil/mm3 (4.40-5.80) 4.48mil/mm3 (4.40-5.80) 4.16mil/mm3 (4.40-5.80) Hemoglobin 13.2g/dL (13.8-17.2) 12.5g/dL (13.8-17.2) 11.7g/dL (13.8-17.2) Hematocrit 39.8% (41.0-50.0) 37.4% (41.0-50.0) 34.8% (41.0-50.0) Mean Corpuscular Volume 83.4fL (81-100) 83.5fL (81-100) 83.7fL (81-100) Mean Corpuscular Hemoglobin 27.7pg (27.0-35.0) 27.9pg (27.0-35.0) 28.1pg (27.0-35.0) Mean Corpuscular Hemoglobin Concent 33.2% (32.0-37.0) 33.4% (32.0-37.0) 33.6% (32.0-37.0) Red Cell Distribution Width 16.0% (12.3-15.4) 16.3% (12.3-15.4) 16.8% (12.3-15.4) Platelet Count 216bil/L (150-400) 177bil/L (150-400) 162bil/L (150-400) Neutrophils (%) (Auto) 86.6% (40-74) 88.0% (40-74) 87.8% (40-74) Lymphocytes (%) (Auto) 4.1% (14-46) 4.2% (14-46) 4.6% (14-46) Monocytes (%) (Auto) 8.6% (4-12) 7.3% (4-12) 6.5% (4-12) Eosinophils (%) (Auto) 0% (0-5) 0% (0-5) 0% (0-5) Basophils (%) (Auto) 0.1% (0-3) 0% (0-3) 0% (0-3) Band Neutrophils % 1% (1-5) Prothrombin Time 11.7sec (8.1-12.5) 11.5sec (8.1-12.5) Prothromb Time International Ratio 1.09ratio 1.07ratio Sodium Level 146mEq/L (134-144) 143mEq/L (134-144) 145mEq/L (134-144) 146mEq/L (134-144) Potassium Level 4.5mEq/L (3.5-5.2) 4.5mEq/L (3.5-5.2) 4.7mEq/L (3.5-5.2) 4.6mEq/L (3.5-5.2) Chloride Level 112mEq/L (97-108) 110mEq/L (97-108) 113mEq/L (97-108) 114mEq/L (97-108) Carbon Dioxide Level 16mmol/L (18-29) 17mmol/L (18-29) 21mmol/L (18-29) 22mmol/L (18-29) Blood Urea Nitrogen 23mg/dL (8-27) 23mg/dL (8-27) 23mg/dL (8-27) 22mg/dL (8- 27) Creatinine 0.97mg/dL (0.76-1.27) 1.14mg/dL (0.76-1.27) 0.92mg/dL (0.76-1.27) 0.93mg/dL (0.76-1.27) Estimat Glomerular Filtration Rate 82mL/min (>59) 68mL/min (>59) 87mL/min (>59) 86mL/min (>59) Glucose Level 93mg/dL (60-99) 140mg/dL (60-99) 138mg/dL (60-99) 121mg/dL (60-99) Lactic Acid Level 2.1mmol/L (0.4-2.0) 3.1mmol/L (0.4-2.0) Calcium Level 8.2mg/dL (8.5-10.1) 8.0mg/dL (8.5-10.1) 8.1mg/dL (8.5-10.1) 8.0mg/dL (8.5-10.1) Phosphorus Level 2.0mg/dL (2.5-4.9) 1.4mg/dL (2.5-4.9) 2.1mg/dL (2.5-4.9) Magnesium Level 1.8mg/dL (1.6-2.6) 2.7mg/dL (1.6-2.6) 2.3mg/dL (1.6-2.6) 2.3mg/dL (1.6-2.6) Total Bilirubin 0.7mg/dL (0.0-1.2) 0.8mg/dL (0.0-1.2) 0.7mg/dL (0.0-1.2) 0.7mg/dL (0.0-1.2) Aspartate Amino Transf (AST/SGOT) 311U/L (0-50) 313U/L (0-50) 244U/L (0-50) 240U/L (0-50) Alanine Aminotransferase (ALT/SGPT) 174U/L (0-44) 164U/L (0-44) 144U/L (0-44) 133U/L (0-44) Alkaline Phosphatase 54U/L (25-160) 50U/L (25-160) 49U/L (25-160) 50U/L (25- 160) Total Creatine Kinase 7723U/L (21-232) 8691U/L (21-232) Creatine Kinase MB 600.0ng/mL (0.0-10.4) 560.4ng/mL (0.0-10.4) Creatine Kinase MB % 7.8% (0.0-5.0) 6.4% (0.0-5.0) Troponin T 4.81ug/L (0.0-0.011) 4.33ug/L (0.0-0.011) Total Protein 5.8g/dL (6.4-8.4) 5.7g/dL (6.4-8.4) 5.1g/dL (6.4-8.4) 5.6g/dL (6.4-8.4) Albumin 3.9g/dL (3.4-5.0) 3.4g/dL (3.4-5.0) 3.4g/dL (3.4-5.0) 3.4g/dL (3.4-5.0) Ionized Calcium 1.12mmol/L (1.17-1.32) Procalcitonin 0.81ng/mL (0.00-0.08) Test 01/23/17 03:55 Procalcitonin 0.44ng/mL (0.00-0.08) Result Diagram: 01/22/17 0504 01/22/17 0504 Microbiology 01/20/17 Blood Culture -No growth at 2 days 01/19/17 MRSA (PCR) - Negative 01/19/17 Sputum Quality Screen - Final, Complete 01/19/17 Sputum Culture -MODERATE NORMAL WOODY PRESENT X-Rays, CTs and MRIs (01/19/17) CT BRAIN WITHOUT CONTRAST IMPRESSION: No acute intracranial abnormalities. Dictated and approved by: Juan A Lang M.D. on 01/19/2017 at 16:31 (01/20/17) X-RAY CHEST ONE VIEW, PORTABLE IMPRESSION: Repositioned aortic balloon pump. Dictated and approved by: Gem Rogers M.D. on 01/20/2017 at 9:22 (01/20/17) X-RAY CHEST ONE VIEW, PORTABLE IMPRESSION: 1. Lines and tubes as above. 2. Nodular opacity projected over the left lower lobe. Pulmonary nodule cannot be excluded and continued radiographic followup is recommended. This may represent a nipple shadow. Interpreted and approved by: Gem Rogers MD on 01/20/2017 at 9:30 (01/21/17) X-RAY CHEST ONE VIEW, PORTABLE IMPRESSION: No definite acute cardiopulmonary disease. Interpreted and approved by: Nadiya Browne MD on 01/21/2017 at 10:19 (01/22/17) CT BRAIN WITHOUT CONTRAST IMPRESSION: 1. Findings consistent with evolving anoxic brain injury involving the left parietal and posterior left frontal lobes. 2. Bilateral ethmoid and left maxillary sinus mucosal thickening, presumably related to intubation. Moderate left mastoid air cell fluid is also now present. Dictated and approved by: Juan A Lang M.D. on 01/22/2017 at 10:02 . Cardiac Echo Impressions Echocardiogram Report Interpretation Summary The left ventricle is normal in size. Left ventricular systolic function is moderately reduced. Left ventricular ejection fraction is estimated to be 40%. LVEF has decreased since prior study. There is hypokinesis to akinesis along the apical, anteroseptum, anterior, and part of the anterolateral wall. LV wall motion abnormalities are new since 06/18/2011. The right ventricle is normal in size and function. The right ventricular systolic pressure is estimated at 37 mmHg assuming a right atrial pressure of 15 mm Hg. The left atrial size is normal. Right atrial size is normal. There is no significant valvular heart disease. The ascending aorta is mildly enlarged. Additional Diagnostics (01/20/2017) EEG IMPRESSION: Abnormal electroencephalogram due to slowing. No epileptiform abnormalities seen and no electrophysiologic evidence to suggest seizures. Shivering episodes are associated with only muscle artifact. Recommend repeat EEG if clinical suspicion for epilepsy is high or the patient fails to regain consciousness. Slow activity can be seen due to medications or generalized brain dysfunction or metabolic problems. Recommend repeat EEG if patient fails to regain consciousness. Jazmyn Ramirez MD 01/20/17 1801 Assessment & Plan 66 y/o male with a history of hypertension and hyperlipidemia who presented to the ED intubated, following resuscitation in the field for an out of hospital cardiac arrest. Now status post PCI with stenting of the LAD and placement of intraaortic balloon pump. Hospital and intubation day #4 Out of hospital cardiac arrest secondary to acute anterior STEMI. Present on admission. - Total time of CPR ~25 minutes with 3 shocks, 4 rounds of epinephrine and ROSC after the final shock. - s/p PCI on 01/20 with 3 drug-eluting stents placed in the LAD as well as a temporary intra-aortic balloon pump (removed 01/20). - Echocardiogram showed an EF of 40% as well as hypokinesis to akinesis along the apical, anteroseptum, anterior, and part of the anterolateral wall. - Continue aspirin, statin and prasugrel per Cardiology. Appreciate recommendations and expertise. - Continue temperature regulation to prevent hyperthermia Shock, acute. Present on admission. Stable. - Secondary to acute STEMI with possible infectious component related to aspiration during CPR. - WBC on admission 11.3, most recently 25.3 and trending down. Pt receiving Unasyn to cover aspiration pneumonia. - Blood/sputum cultures negative thus far - Echocardiogram as above - Wean pressor support as able. Norepinephrine currently at 0.14mcg/kg/min Acute respiratory failure. Present on admission. Active. - Secondary to cardiac arrest. - Continue mechanical ventilation Anoxic brain injury, acute. Present on admission. Active. - Secondary to cardiac arrest and CPR prior to admission. Patient without purposeful movement or signs of mentation despite reduction in sedatives. No gag reflex and pupils are not reactive to light. - EEG showed slow activity but no epileptiform abnormalities. - Repeat head CT on 01/22 with findings consistent with evolving anoxic brain injury - Will continue to titrate sedation as able with frequent neuro checks. - Discontinue anti-epileptic medications when off sedation - Consider consult to Neurology regarding prognosis and possible repeat EEG Seizure-like activity, acute. Not present on admission. Stable. - Patient with seizure-like activity after cooling to 32.8 C. - EEG results as above. - Continue Bupropion, Keppra, propofol and valproic acid with plan to discontinue as above Leukocytosis, acute. Present on admission. Active. - WBC on admission 11.3 and remains elevated at 25.3 but trending down. Patient started on Unasyn empirically to cover aspiration pneumonia. - Procalcitonin trended down, blood/sputum cultures negative - Repeat CXR, CBC Lactic acidosis, acute. Present on admission. Active - Secondary to cardiac arrest and cardiogenic shock. - Treat underlying cardiac causes - Continue to monitor Hyperglycemia, acute. Present on admission. - BG 254 on admission, increased to 324.Likely acute stress reaction. No history of diabetes. - A1c 5.6 - Continue insulin gtt, bedside glucose monitoring . GI Prophylaxis: H2 britney VTE Prophylaxis: Sub-Q Heparin (Unfractionated) Resuscitation Status: CPR: Attempt Resuscitation Sparkle Thibodeaux DO Jan 23, 2017 09:06
[2017-01-23] MEDS: 0.9% Sodium Chloride 1,000 ML IV SCH ×2 (09:50→19:50)
--- NOTE | 2017-01-23 11:05 | NUR ---
spiritual care: following Continuing to follow pt and family through this difficult time. Family has requested resources on grieving and homes. Family is gathering to say their goodbyes. Spiritual care will continue to follow as needed.
[2017-01-23] MEDS: Valproic Acid 50 mg/mL 5 mL Solution PO SCH ×2 (12:23→20:29)
--- NOTE | 2017-01-23 18:37 | NUR ---
Mentation/Artic Sun.. Pt was able to have propofol and fentanyl weaned throughout the shift and was off all sedation as of 1700. Was also able to wean off Levophed gtt as of 1330. Has been noted to do more shivering like tremors since weaning of sedatives. Artic Sun discontinued as temp has been normal or lowgrade. Family has been at the bedside throughout the day and attended rounds and have been updated by MD. They realize how ill he is but want to wait longer before decisions are made and would request and neurology consult.. MD aware.
--- NOTE | 2017-01-23 18:40 | PCM.PNMED ---
Subjective Date of Service Jan 23, 2017 Subjective Patient sedated and mechanically ventilated with seizure like activity per nursing overnight. Peak pressures elevated and patient stacking breaths with titration off sedation. Propofol restarted with resolution of myoclonus and midazolam stopped. He is without obvious tremor or myoclonic activity this morning. Titrating down on norepinephrine as able to maintain MAP of 80 for cerebral perfusion. Currently sedated with propofol 10mcg/kg/min, fentanyl 50mcg/hr. Hospital/ intubation day #4. Awaiting sedation vacation and neurologic checks on Day 5. Exam Vital Signs Vital Sign - Last Date Time Temp Pulse Resp B/P Pulse Ox O2 Delivery O2 Flow Rate FiO2 01/23/17 16:00 37.3 82 24 132/74 95 Mechanical Ventilator 30 Intake and Output 01/22/17 01/22/17 01/23/17 Cumulative From/Thru 15:00 23:00 07:00 01/19/17 15:42 - 01/23/17 06:14 Intake Total 1691 ml 2343 ml 32664 ml Output Total 450 ml 625 ml 9375 ml Balance 1241 ml 1718 ml 8230 ml Intake IV Total 1667 ml 1975 ml 96689 ml Tube Feeding 24 ml 128 ml 152 ml Tube Irrigant 0 ml 240 ml 390 ml Output Urine Total 450 ml 625 ml 8625 ml Gastric Drainage Total 450 ml Emesis 300 ml # Bowel Movements 0 0 Exam General: Sedated and mechanically ventilated. ETT in place. HEENT: Normocephalic, atraumatic. Pupils pinpoint, equal and nonreactive. No scleral icterus. Mucosa moist Cardiovascular: Distant heart tones with regular rate and rhythm, no murmurs, rubs, or gallops appreciated Pulmonary: Symmetric chest rise with equal air entry bilaterally, lungs coarse with mild crackles at the base, no wheezing. Abdomen: Soft, nondistended, bowel tones diminished. Extremities: No cyanosis or edema. Neurological: Sedated. IVs and Medications Medications Reviewed: Medications were reviewed in detail Lab and Diagnostics Result Diagram: 01/22/17 0504 01/22/17 0504 Microbiology 01/20/17 Blood Culture -No growth at 2 days 01/19/17 MRSA (PCR) - Negative 01/19/17 Sputum Quality Screen - Final, Complete 01/19/17 Sputum Culture -MODERATE NORMAL WOODY PRESENT X-Rays, CTs and MRIs (01/19/17) CT BRAIN WITHOUT CONTRAST IMPRESSION: No acute intracranial abnormalities. Dictated and approved by: Juan A Lang M.D. on 01/19/2017 at 16:31 (01/20/17) X-RAY CHEST ONE VIEW, PORTABLE IMPRESSION: Repositioned aortic balloon pump. Dictated and approved by: Gem Rogers M.D. on 01/20/2017 at 9:22 (01/20/17) X-RAY CHEST ONE VIEW, PORTABLE IMPRESSION: 1. Lines and tubes as above. 2. Nodular opacity projected over the left lower lobe. Pulmonary nodule cannot be excluded and continued radiographic followup is recommended. This may represent a nipple shadow. Interpreted and approved by: Gem Rogers MD on 01/20/2017 at 9:30 (01/21/17) X-RAY CHEST ONE VIEW, PORTABLE IMPRESSION: No definite acute cardiopulmonary disease. Interpreted and approved by: Nadiya Browne MD on 01/21/2017 at 10:19 (01/22/17) CT BRAIN WITHOUT CONTRAST IMPRESSION: 1. Findings consistent with evolving anoxic brain injury involving the left parietal and posterior left frontal lobes. 2. Bilateral ethmoid and left maxillary sinus mucosal thickening, presumably related to intubation. Moderate left mastoid air cell fluid is also now present. Dictated and approved by: Juan A Lang M.D. on 01/22/2017 at 10:02 . Cardiac Echo Impressions Echocardiogram Report Interpretation Summary The left ventricle is normal in size. Left ventricular systolic function is moderately reduced. Left ventricular ejection fraction is estimated to be 40%. LVEF has decreased since prior study. There is hypokinesis to akinesis along the apical, anteroseptum, anterior, and part of the anterolateral wall. LV wall motion abnormalities are new since 06/18/2011. The right ventricle is normal in size and function. The right ventricular systolic pressure is estimated at 37 mmHg assuming a right atrial pressure of 15 mm Hg. The left atrial size is normal. Right atrial size is normal. There is no significant valvular heart disease. The ascending aorta is mildly enlarged. Additional Diagnostics (01/20/2017) EEG IMPRESSION: Abnormal electroencephalogram due to slowing. No epileptiform abnormalities seen and no electrophysiologic evidence to suggest seizures. Shivering episodes are associated with only muscle artifact. Recommend repeat EEG if clinical suspicion for epilepsy is high or the patient fails to regain consciousness. Slow activity can be seen due to medications or generalized brain dysfunction or metabolic problems. Recommend repeat EEG if patient fails to regain consciousness. Jazmyn Ramirez MD 01/20/17 0146 Assessment & Plan 66 y/o male with a history of hypertension and hyperlipidemia who presented to the ED intubated, following resuscitation in the field for an out of hospital cardiac arrest. Now status post PCI with stenting of the LAD and placement of intraaortic balloon pump. Hospital and intubation day #4 Out of hospital cardiac arrest secondary to acute anterior STEMI. Present on admission. - Total time of CPR ~25 minutes with 3 shocks, 4 rounds of epinephrine and ROSC after the final shock. - s/p PCI on 01/20 with 3 drug-eluting stents placed in the LAD as well as a temporary intra-aortic balloon pump (removed 01/20). - Echocardiogram showed an EF of 40% as well as hypokinesis to akinesis along the apical, anteroseptum, anterior, and part of the anterolateral wall. - Continue aspirin, statin and prasugrel per Cardiology. Appreciate recommendations and expertise. - Continue temperature regulation to prevent hyperthermia Shock, acute. Present on admission. Stable. - Secondary to acute STEMI with possible infectious component related to aspiration during CPR. - WBC on admission 11.3, most recently 25.3 and trending down. Pt receiving Unasyn to cover aspiration pneumonia. - Blood/sputum cultures negative thus far - Echocardiogram as above - Wean pressor support as able. Norepinephrine currently at 0.14mcg/kg/min Acute respiratory failure. Present on admission. Active. - Secondary to cardiac arrest. - Continue mechanical ventilation Anoxic brain injury, acute. Present on admission. Active. - Secondary to cardiac arrest and CPR prior to admission. Patient without purposeful movement or signs of mentation despite reduction in sedatives. No gag reflex and pupils are not reactive to light. - EEG showed slow activity but no epileptiform abnormalities. - Repeat head CT on 01/22 with findings consistent with evolving anoxic brain injury - Will continue to titrate sedation as able with frequent neuro checks. - Discontinue anti-epileptic medications when off sedation - Consider consult to Neurology regarding prognosis and possible repeat EEG Seizure-like activity, acute. Not present on admission. Stable. - Patient with seizure-like activity after cooling to 32.8 C. - EEG results as above. - Continue Bupropion, Keppra, propofol and valproic acid with plan to discontinue as above Leukocytosis, acute. Present on admission. Active. - WBC on admission 11.3 and remains elevated at 25.3 but trending down. Patient started on Unasyn empirically to cover aspiration pneumonia. - Procalcitonin trended down, blood/sputum cultures negative - Repeat CXR, CBC Lactic acidosis, acute. Present on admission. Active - Secondary to cardiac arrest and cardiogenic shock. - Treat underlying cardiac causes - Continue to monitor Hyperglycemia, acute. Present on admission. - BG 254 on admission, increased to 324.Likely acute stress reaction. No history of diabetes. - A1c 5.6 - Continue insulin gtt, bedside glucose monitoring . Pain Evaluation: Adequate Pain Control GI Prophylaxis: H2 britney VTE Prophylaxis: Sub-Q Heparin (Unfractionated) VTE Mechanical Devices: Intermittant Pneumatic CD Resuscitation Status: CPR: Attempt Resuscitation Attending Statement The patient was seen and examined together with on 01/23/2017and I agree with the history, exam findings, and plan as outlined in the note above. I did participate in all aspects of the services provided today, including documentation and the plan of care. The patient shows evidence of a significant anoxic brain injury. The patient will continue to be supported with mechanical ventilation. He did undergo the hypothermia protocol. Shows evidence of loss of brainstem reflexes. Continue to have all of care discussion with the family as well as discussions regarding the possibility compassion extubation. LUKAS KUHN DO Jan 23, 2017 18:40 Heladio Hernandez MD Jan 26, 2017 07:48
[2017-01-24] VITALS (13 sets, daily range): BP systolic 131–148; BP diastolic 64–73; PULSE 62–79; RESP 14–20; O2SAT 94–99
[2017-01-24] MEDS: Heparin 5,000 Unit/mL Inj SUBQ SCH ×3 (00:15→16:57)
[2017-01-24] MEDS: Chlorhexidine 0.12% 15 mL Oral Solution MT SCH ×6 (00:15→19:51)
[2017-01-24] MEDS: Ampicillin-Sulbactam Inj 3,000 MG in 0.9% Sodium Chloride 100 ML IV SCH ×4 (00:15→18:30)
[2017-01-24] MEDS: Midazolam Inj 100 MG in IV Premix 1 EACH IV SCH (03:20)
[2017-01-24] MEDS: 0.9% Sodium Chloride 1,000 ML IV SCH (03:21)
--- NOTE | 2017-01-24 03:39 | NUR ---
Temp/Neuro Pt has lowgrade temp throughout shift. Max temp 38.0. Shivers present. Question whether shivers are from fever vs. seizure activity. Neurological exam shows minimal activity. Pt does not respond to deep pain (attempted to use pen on nailbeds). pupils are reactive to light but sluggish. Minimal/questionable response to stimulation. MD notified. IV/OG/and rectal meds given for above symptoms. MD orders to attempt non pharmacological interventions for fever after initial tylenol dose. Ice packs, cool bath, minimal blankets, and cooler room implemented with minimal response. Will continue to monitor closely. Care ongoing
[2017-01-24] MEDS: Dextrose 5% Lactated Ringer's 1,000 ML IV SCH (03:49)
--- NOTE | 2017-01-24 04:56 | ABG ---
DateTimeAnalyzed 04:50:00 -_ pH ____7.505 - 7.350 7.450 pCO2 ___34.0__ -mmHg 35.0 45.0 pO2 ___72.2__ -mmHg 69.0 116 HCO3- ___26.6__ -mmol/L 22.0 26.0 ABE ____3.9__ -mmol/L -2.0 2.0 tHb ___10.2__ -g/dL O2Hb ___92.9__ -% COHb ____1.2__ -% MetHb ____0.9__ -% sO2 ___94.9__ -% 25.0 FIO2 ___21.0__ -% PEEP ____5.0__ -cmH2O Set_RR ___14.0__ -b/min Drawn By MD - Date/Time Notified____ 04:55:00 -_ Spontaneous_RR ___24.0__ -b/min Oxygen Device 1 VENTILATOR - Notified By MD - Notified Whom RN C.LASHONDA - B 754 -mmHg tO2 ___13.4__ -Vol% Heladio test N/A -
[2017-01-24 06:18] LABS: BASOPHILS % (AUTO) 0.1 % (0-3); EOSINOPHILS % (AUTO) 0 % (0-5); MONOCYTES % (AUTO) 14.3 % (4-12); Mean Corpuscular Hemoglobin 27.4 pg (27.0-35.0); Mean Corpuscular Volume 85.9 fL (81-100); NEUTROPHILS % (AUTO) 73.7 % (40-74); Platelet Count 113 bil/L (150-400)
--- NOTE | 2017-01-24 06:21 | NUR ---
[facility] there is talk regarding withdrawal of care. Per [facility] pt is possible candidate but only if it is determined that he is brain . Pt not a candidate for donation after cardiac because of age. They would like an update with plan/status as it progresses. Per usual protocol, they would also prefer we do not mention anything about organ donation/potential donation to family. Pt referral # is [id number]. Care ongoing
[2017-01-24] MEDS: Famotidine Inj 20 MG in IV Premix 1 EACH IV SCH ×2 (08:27→19:51)
[2017-01-24] MEDS: levETIRAcetam Inj 1,000 MG in IV Premix 1 EACH IV SCH ×2 (08:27→19:50)
[2017-01-24] MEDS: LacriLube S.O.P. 3.5 Gm Ophthalmic Ointment BOTH_EYES SCH ×2 (08:28→19:52)
--- NOTE | 2017-01-24 09:00 | PCM.PNMED ---
Subjective Date of Service Jan 24, 2017 Subjective 66 yo man with h/o HTN and dyslipidemia admitted after OOHCA at home, requiring multiple rounds CPR and ACLS before ROSC. 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 By time of admission to ICU had already developed seizure like movements. Completed therapeutic temperature management after 24 hours and all sedation withdrawn yesterday. Initial CT unremarkable but F/U CT on day 3 showed evolving diffuse injury with loss of anderson-white differentiation. EEG obtained earlier while on continuous sedation showed diffuse slowing without burst suppression or epileptiform discharges. Received a single 1 mg bolus lorazepam IV last noc for tremors Had some brief eye opening yesterday, none seen today while I was at his bedside. Spoke today with Dr. Ramirez of Neurology who has kindly agreed to see Mr. Parham later today and discuss her impression with the family. Exam Vital Signs Vital Sign - Last Date Time Temp Pulse Resp B/P Pulse Ox O2 Delivery O2 Flow Rate FiO2 01/24/17 07:00 70 138/66 98 30 01/24/17 04:35 37.6 18 Mechanical Ventilator Intake and Output 01/23/17 01/23/17 01/24/17 Cumulative From/Thru 15:00 23:00 07:00 01/19/17 15:42 - 01/24/17 06:17 Intake Total 1545 ml 1260 ml 73494 ml Output Total 450 ml 700 ml 16651 ml Balance 1095 ml 560 ml 9885 ml Intake IV Total 1545 ml 991 ml 65382 ml Tube Feeding 129 ml 281 ml Tube Irrigant 140 ml 530 ml Output Urine Total 450 ml 700 ml 9775 ml Gastric Drainage Total 450 ml Emesis 300 ml # Bowel Movements 0 0 Exam WDWN man orally intubated. Fine tremor of UE's, No gross spont movements, posturing. Neuro PER 4mm, reactive today. dysconjugate gaze. No clear corneal blink but difficult as he has some facial myoclonus bilaterally involving his eyelids. No occulocephalic reflex + cough and extensor posture with deep suctioning + spont respirations, irregular / ataxic Lungs Very coarse breath sounds, improved with suctioning. No wheeze, rhonchi CV RRR, nl S1S2, + S4, no m/r Abd Soft, normal BTs, no HSM Ext 2-3 + edema all 4 Lab and Diagnostics Result Diagram: 01/24/17 0605 01/24/17 0605 Microbiology 01/20/17 Blood Culture -No growth at 2 days 01/19/17 MRSA (PCR) - Negative 01/19/17 Sputum Quality Screen - Final, Complete 01/19/17 Sputum Culture -MODERATE NORMAL WOODY PRESENT X-Rays, CTs and MRIs (01/19/17) CT BRAIN WITHOUT CONTRAST IMPRESSION: No acute intracranial abnormalities. Dictated and approved by: Juan A Lang M.D. on 01/19/2017 at 16:31 (01/20/17) X-RAY CHEST ONE VIEW, PORTABLE IMPRESSION: Repositioned aortic balloon pump. Dictated and approved by: Gem Rogers M.D. on 01/20/2017 at 9:22 (01/20/17) X-RAY CHEST ONE VIEW, PORTABLE IMPRESSION: 1. Lines and tubes as above. 2. Nodular opacity projected over the left lower lobe. Pulmonary nodule cannot be excluded and continued radiographic followup is recommended. This may represent a nipple shadow. Interpreted and approved by: Gem Rogers MD on 01/20/2017 at 9:30 (01/21/17) X-RAY CHEST ONE VIEW, PORTABLE IMPRESSION: No definite acute cardiopulmonary disease. Interpreted and approved by: Nadiya Browne MD on 01/21/2017 at 10:19 (01/22/17) CT BRAIN WITHOUT CONTRAST IMPRESSION: 1. Findings consistent with evolving anoxic brain injury involving the left parietal and posterior left frontal lobes. 2. Bilateral ethmoid and left maxillary sinus mucosal thickening, presumably related to intubation. Moderate left mastoid air cell fluid is also now present. Dictated and approved by: Juan A Lang M.D. on 01/22/2017 at 10:02 . Cardiac Echo Impressions Echocardiogram Report Interpretation Summary The left ventricle is normal in size. Left ventricular systolic function is moderately reduced. Left ventricular ejection fraction is estimated to be 40%. LVEF has decreased since prior study. There is hypokinesis to akinesis along the apical, anteroseptum, anterior, and part of the anterolateral wall. LV wall motion abnormalities are new since 06/18/2011. The right ventricle is normal in size and function. The right ventricular systolic pressure is estimated at 37 mmHg assuming a right atrial pressure of 15 mm Hg. The left atrial size is normal. Right atrial size is normal. There is no significant valvular heart disease. The ascending aorta is mildly enlarged. Additional Diagnostics (01/20/2017) EEG IMPRESSION: Abnormal electroencephalogram due to slowing. No epileptiform abnormalities seen and no electrophysiologic evidence to suggest seizures. Shivering episodes are associated with only muscle artifact. Recommend repeat EEG if clinical suspicion for epilepsy is high or the patient fails to regain consciousness. Slow activity can be seen due to medications or generalized brain dysfunction or metabolic problems. Recommend repeat EEG if patient fails to regain consciousness. Jazmyn Ramirez MD 01/20/17 1801 Assessment & Plan IMP Out of Hospital VF arrest / STEMI with prolonged time to ROSC, s/p PIC to LAD. Required IABP briefly after intervention due to cardiogenic shock now resolved. Anoxic ischemic brain injury, This appears to be severe given his exam although he has regained pupil reactivity. family aware. Volume overload PLAN DC AEDs if Neuro agrees Neurology consult later today Cautious diuresis dual antiplatelet rx, statin per Cardiology Family meeting to decide goals and plan GI Prophylaxis: H2 britney VTE Prophylaxis: Sub-Q Heparin (Unfractionated) VTE Mechanical Devices: Intermittant Pneumatic CD Resuscitation Status: CPR: Attempt Resuscitation Wallace Tavera MD Jan 24, 2017 09:00 - Continue mechanical ventilation Anoxic brain injury, acute. Present on admission. Active. - Secondary to cardiac arrest and CPR prior to admission. Patient without purposeful movement or signs of mentation despite reduction in sedatives. No gag reflex and pupils are not reactive to light. - EEG showed slow activity but no epileptiform abnormalities. - Repeat head CT on 01/22 with findings consistent with evolving anoxic brain injury - Will continue to titrate sedation as able with frequent neuro checks. - Discontinue anti-epileptic medications when off sedation - Consider consult to Neurology regarding prognosis and possible repeat EEG Seizure-like activity, acute. Not present on admission. Stable. - Patient with seizure-like activity after cooling to 32.8 C. - EEG results as above. - Continue Bupropion, Keppra, propofol and valproic acid with plan to discontinue as above Leukocytosis, acute. Present on admission. Active. - WBC on admission 11.3 and remains elevated at 25.3 but trending down. Patient started on Unasyn empirically to cover aspiration pneumonia. - Procalcitonin trended down, blood/sputum cultures negative - Repeat CXR, CBC Lactic acidosis, acute. Present on admission. Active - Secondary to cardiac arrest and cardiogenic shock. - Treat underlying cardiac causes - Continue to monitor Hyperglycemia, acute. Present on admission. - BG 254 on admission, increased to 324.Likely acute stress reaction. No history of diabetes. - A1c 5.6 - Continue insulin gtt, bedside glucose monitoring . GI Prophylaxis: H2 britney VTE Prophylaxis: Sub-Q Heparin (Unfractionated) VTE Mechanical Devices: Intermittant Pneumatic CD Resuscitation Status: CPR: Attempt Resuscitation Wallace Tavera MD Jan 24, 2017 09:00
[2017-01-24] MEDS: Valproic Acid 50 mg/mL 5 mL Solution PO SCH (09:06)
--- NOTE | 2017-01-24 10:15 | NUR ---
NUTRITION FOLLOW-UP: Assess: 66 YO M admitted to CCU for cardiac arrest secondary to STEMI. 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 Currently intubated and re-warmed. Pt has been tolerating trophic feeds well with minimal residuals. No BM. Received verbal to advance tf towards goal today. Orders in chart, RN aware. Neurology has been consulted. CT on 01/22 findings consistent with evolving anoxic brain injury. PMHX: HTN, HLD. DIET: NPO. LABS: Reviewed. Na 150, Cl 114, Glu 110, Ca 8.4 MEDICATIONS: Reviewed. Keppra, Propofol currently running at 8ml/hr providing 211kcal/day. GI: No BM noted. SKIN: No PU per WC NUTRITION SUPPORT: Jevity 1.5 @ 10ml/hr. ANTHROPOMETRICS: Wt: 107.9 kg, BMI 33.2kg/m2, admit wt: 96.5kg, IBW: 78kg ESTIMATED NEEDS: VENT (based off admit wt) Calories: 0745-1832 kcal/day (20-25 kcal/kg BW) Protein: 145-174 g/day (1.5-1.8 g/kg BW) Fluids: ~2500ml/day (25ml/kg) NUTRITION DIAGNOSIS: 1) Inadequate oral intake related to decreased ability to consume sufficient energy as evidenced by NPO/Vent status. --PERSISTS INTERVENTION: 1) Recommend advance TF of Jevity 1.5 by 10ml q 6 hrs until reach goal rate of 67ml/hr to provide 2211kcal/day and 94gpro (100% kcal and 65% pro needs). 2) Recommend add prosource to better meet protein needs once TF at goal rate. 3) Adjust goal rate based on daily propofol 4) Will continue to monitor for BM MONITOR/EVALUATE: NPO/Vent status, TF jeanette/advance, BM, POC, labs, GI/nutrition status. Follow per high nutrition risk guidelines.
[2017-01-24] MEDS: Dextrose 5% 1,000 ML IV SCH (11:56)
[2017-01-24] MEDS: Furosemide 10 mg/mL 2 mL Inj IVPUSH SCH ×2 (11:56→16:30)
[2017-01-24] MEDS: Norepineph 8,000 mCg/250 mL NS 8,000 MCG in IV Premix 1 EACH IV SCH (13:30)
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
--- NOTE | 2017-01-24 16:39 | PCM.PNMED ---
Subjective Date of Service Jan 24, 2017 Subjective Patient sedated and mechanically ventilated with seizure like activity per nursing overnight. Peak pressures elevated and patient stacking breaths with titration off sedation. Propofol restarted with resolution of myoclonus and midazolam stopped. He is without obvious tremor or myoclonic activity this morning. Titrating down on norepinephrine as able to maintain MAP of 80 for cerebral perfusion. Currently off sedation. Hospital/intubation day #5. Sedation is off currently and patient remains without volitional movements. Dr. Ramirez with neurology was consulted and discussed with patients family the unlikelihood of the patient regaining any meaningful function. It was agreed to wait till Friday before any further decisions are made regarding end of life or extubation. Exam Vital Signs Vital Sign - Last Date Time Temp Pulse Resp B/P Pulse Ox O2 Delivery O2 Flow Rate FiO2 01/24/17 15:51 67 147/73 98 30 01/24/17 12:00 37.8 14 Mechanical Ventilator Intake and Output 01/23/17 01/23/17 01/24/17 Cumulative From/Thru 15:00 23:00 07:00 01/19/17 15:42 - 01/24/17 06:17 Intake Total 1545 ml 1260 ml 39070 ml Output Total 450 ml 700 ml 05076 ml Balance 1095 ml 560 ml 9885 ml Intake IV Total 1545 ml 991 ml 35759 ml Tube Feeding 129 ml 281 ml Tube Irrigant 140 ml 530 ml Output Urine Total 450 ml 700 ml 9775 ml Gastric Drainage Total 450 ml Emesis 300 ml # Bowel Movements 0 0 Exam General: Sedated and mechanically ventilated. ETT in place. HEENT: Normocephalic, atraumatic. Pupils pinpoint, equal and nonreactive. bilaterally ocular myoclonus present. No scleral icterus. Mucosa moist Cardiovascular: Distant heart tones with regular rate and rhythm, no murmurs, rubs, or gallops appreciated Pulmonary: Symmetric chest rise with equal air entry bilaterally, lungs coarse with mild crackles at the base, no wheezing. Abdomen: Soft, nondistended, bowel tones diminished. Extremities: No cyanosis or edema. Neurological: No volitional movements, de-cerebrate posturing. IVs and Medications Medications Reviewed: Medications were reviewed in detail Lab and Diagnostics Result Diagram: 01/24/1760401/24/17604 Microbiology 01/20/17 Blood Culture -No growth at 2 days 7/30/17 MRSA (PCR) - Negative 01/19/17 Sputum Quality Screen - Final, Complete 01/19/17 Sputum Culture -MODERATE NORMAL WOODY PRESENT X-Rays, CTs and MRIs (01/19/17) CT BRAIN WITHOUT CONTRAST IMPRESSION: No acute intracranial abnormalities. Dictated and approved by: Juan A Lang M.D. on 01/19/2017 at 16:31 (01/20/17) X-RAY CHEST ONE VIEW, PORTABLE IMPRESSION: Repositioned aortic balloon pump. Dictated and approved by: Gem Rogers M.D. on 01/20/2017 at 9:22 (01/20/17) X-RAY CHEST ONE VIEW, PORTABLE IMPRESSION: 1. Lines and tubes as above. 2. Nodular opacity projected over the left lower lobe. Pulmonary nodule cannot be excluded and continued radiographic followup is recommended. This may represent a nipple shadow. Interpreted and approved by: Gem Rogers MD on 01/20/2017 at 9:30 (01/21/17) X-RAY CHEST ONE VIEW, PORTABLE IMPRESSION: No definite acute cardiopulmonary disease. Interpreted and approved by: Nadiya Browne MD on 01/21/2017 at 10:19 (01/22/17) CT BRAIN WITHOUT CONTRAST IMPRESSION: 1. Findings consistent with evolving anoxic brain injury involving the left parietal and posterior left frontal lobes. 2. Bilateral ethmoid and left maxillary sinus mucosal thickening, presumably related to intubation. Moderate left mastoid air cell fluid is also now present. Dictated and approved by: Juan A Lang M.D. on 01/22/2017 at 10:02 . Cardiac Echo Impressions Echocardiogram Report Interpretation Summary The left ventricle is normal in size. Left ventricular systolic function is moderately reduced. Left ventricular ejection fraction is estimated to be 40%. LVEF has decreased since prior study. There is hypokinesis to akinesis along the apical, anteroseptum, anterior, and part of the anterolateral wall. LV wall motion abnormalities are new since 06/18/2011. The right ventricle is normal in size and function. The right ventricular systolic pressure is estimated at 37 mmHg assuming a right atrial pressure of 15 mm Hg. The left atrial size is normal. Right atrial size is normal. There is no significant valvular heart disease. The ascending aorta is mildly enlarged. Additional Diagnostics (01/20/2017) EEG IMPRESSION: Abnormal electroencephalogram due to slowing. No epileptiform abnormalities seen and no electrophysiologic evidence to suggest seizures. Shivering episodes are associated with only muscle artifact. Recommend repeat EEG if clinical suspicion for epilepsy is high or the patient fails to regain consciousness. Slow activity can be seen due to medications or generalized brain dysfunction or metabolic problems. Recommend repeat EEG if patient fails to regain consciousness. Jazmyn Ramirez MD 01/20/17 1801 Assessment & Plan 66 y/o male with a history of hypertension and hyperlipidemia who presented to the ED intubated, following resuscitation in the field for an out of hospital cardiac arrest. Now status post PCI with stenting of the LAD and placement of intraaortic balloon pump. Hospital and intubation day #5. Patient remains off sedation and without volitional movements. no corneal reflexes and continued ocular myoclonus and decerebrate posturing. Family met with neurology and understands that meaningful recover is very unlikely. Will wait till Friday for further actions including end of life care or extubation. Out of hospital cardiac arrest secondary to acute anterior STEMI. Present on admission. - Total time of CPR ~25 minutes with 3 shocks, 4 rounds of epinephrine and ROSC after the final shock. - s/p PCI on 01/20 with 3 drug-eluting stents placed in the LAD as well as a temporary intra-aortic balloon pump (removed 01/20). - Echocardiogram showed an EF of 40% as well as hypokinesis to akinesis along the apical, anteroseptum, anterior, and part of the anterolateral wall. - Continue aspirin, statin and prasugrel per Cardiology. Appreciate recommendations and expertise. Shock, acute. Present on admission. Stable. - Secondary to acute STEMI with possible infectious component related to aspiration during CPR. - WBC on admission 11.3, most recently 25.3 and trending down. Pt receiving Unasyn to cover aspiration pneumonia. - Blood/sputum cultures negative thus far - Echocardiogram as above Acute respiratory failure. Present on admission. Active. - Secondary to cardiac arrest. - Continue mechanical ventilation Anoxic brain injury, acute. Present on admission. Active. - Secondary to cardiac arrest and CPR prior to admission. Patient without purposeful movement or signs of mentation despite reduction in sedatives. No gag reflex and pupils are not reactive to light. - EEG showed slow activity but no epileptiform abnormalities. - Repeat head CT on 01/22 with findings consistent with evolving anoxic brain injury - Neurology consulted. Seizure-like activity, acute. Not present on admission. Stable. - Patient with seizure-like activity after cooling to 32.8 C. - EEG results as above. - Continue Bupropion, Keppra, propofol and valproic acid with plan to discontinue as above Leukocytosis, acute. Present on admission. Active. - WBC on admission 11.3 and remains elevated at 25.3 but trending down. Patient started on Unasyn empirically to cover aspiration pneumonia. - Procalcitonin trended down, blood/sputum cultures negative - Repeat CXR, CBC Lactic acidosis, acute. Present on admission. Active - Secondary to cardiac arrest and cardiogenic shock. - Treat underlying cardiac causes - Continue to monitor Hyperglycemia, acute. Present on admission. - BG 254 on admission, increased to 324.Likely acute stress reaction. No history of diabetes. - A1c 5.6 - Continue insulin gtt, bedside glucose monitoring Pain Evaluation: Adequate Pain Control GI Prophylaxis: H2 britney VTE Prophylaxis: Sub-Q Heparin (Unfractionated) VTE Mechanical Devices: Intermittant Pneumatic CD Resuscitation Status: CPR: Attempt Resuscitation LUKAS KUHN DO GI Prophylaxis: H2 britney VTE Prophylaxis: Sub-Q Heparin (Unfractionated) VTE Mechanical Devices: Intermittant Pneumatic CD Resuscitation Status: CPR: Attempt Resuscitation Attending Statement The patient was seen and examined together with on 01/24/2017and I agree with the history, exam findings, and plan as outlined in the note above. I did participate in all aspects of the services provided today, including documentation and the plan of care. We will continue to support this patient who likely has a severe anoxic brain injury. Neurology will continue to assist us in neurologic prognosis as the family continues to consider the possibility of compassionate extubation. LUKAS KUHN DO Jan 24, 2017 16:36 Heladio Hernandez MD Jan 26, 2017 07:36
--- NOTE | 2017-01-24 18:03 | NUR ---
Neuros... Pt has had eye fluttering and movement of mouth with oral care and turning. Pupils react but no tracking or purposeful response to commands noted. Has had intermittent tremors that seem in correlation to touch and subside spontaneously. Seen by Dr Gee and EEG ordered and completed. Has had a low grade temp with cooling measures given. Is jeanette tube feeds and these have been titrating up. Family at the bedside and have been updated. They are aware of his prognosis and have been tearful. Support given.
[2017-01-24] MEDS: Propofol Inj 1,000,000 MCG in IV Premix 1 EACH IV SCH (19:10)
[2017-01-24] MEDS: Valproate Sodium Inj 500 MG in Dextrose 5% 50 ML IV SCH (19:51)
--- NOTE | 2017-01-24 23:25 | DRSVH ---
PROCEDURE: X-RAY CHEST ONE VIEW ([id number]) INDICATIONS: Decreased lung sounds LEFT base TECHNIQUE: One view of the chest was acquired. COMPARISON: [facility], CR, XR CHEST 1VW (PORTABLE), 01/21/2017, 3:54. FINDINGS: Surgical changes and devices: Endotracheal tube is 7.1 cm above the rodolfo. There is a central venous catheter, the tip of which is projected over the upper SVC. An NG tube is present, the tip of which is not visualized. Lungs and pleura: No pleural effusions or pneumothorax. Lungs are clear. Mediastinum: Mediastinal contours appear normal. Heart size is normal. Bones and chest wall: No suspicious bony lesions. Overlying soft tissues appear unremarkable. IMPRESSION: Endotracheal tube unchanged from the study dated 01/21/17. No acute cardiopulmonary findin gs. Dictated by: Gem Rogers M.D. on 01/24/2017 at 23:22 Approved by: Gem Rogers M.D. on 01/24/2017 at 23:23
[2017-01-25] VITALS (11 sets, daily range): BP systolic 113–142; BP diastolic 55–78; PULSE 60–65; RESP 14–22; O2SAT 97–99
[2017-01-25] MEDS: Dextrose 5% 1,000 ML IV SCH ×2 (00:03→11:50)
[2017-01-25] MEDS: Chlorhexidine 0.12% 15 mL Oral Solution MT SCH ×6 (00:04→19:39)
[2017-01-25] MEDS: Heparin 5,000 Unit/mL Inj SUBQ SCH ×3 (00:06→15:59)
[2017-01-25] MEDS: Ampicillin-Sulbactam Inj 3,000 MG in 0.9% Sodium Chloride 100 ML IV SCH ×6 (00:12→19:38)
[2017-01-25] MEDS: Midazolam Inj 100 MG in IV Premix 1 EACH IV SCH (00:15)
--- NOTE | 2017-01-25 00:46 | NUR ---
Neuro/O2 Pt having significant worsening of seizure-like activity both in presentation and frequency. At this point, everytime pt stimulated (turns, movement of arms, oral care etc), significant tremors throughout body, especially in L hand. This will often cause pt to overbreathe on vent and will desaturate until tremor subsides. During one desaturation event, no seizure-like activity noted, but significant decrease in L lung was heard. MD notified of above. Orders for stat CXR regarding desaturation. Also a one time Keppra 500mg dose to be given in addition to scheduled dose. IV Ativan 2mg alleviates acute tremor/seizure activity. Order from MD allowing Ativan 2mg IV to be given. Plan is if seizure-like activity worsens will start propofol gtt. Will continue to monitor pt Care ongoing Addendum: 01/25/17 at 0542 by JUNIOR GALLEGO RN Propofol gtt started at low dose for seizure like activity escalation.
[2017-01-25] MEDS: Propofol Inj 1,000,000 MCG in IV Premix 1 EACH IV SCH ×3 (02:10→20:20)
--- NOTE | 2017-01-25 05:44 | PROCED ---
[address] [address] EEG PATIENT: EDDIE DÍAZ : 1950 MR#: [id number] ADMIT: 01/19/2017 JOB ID: [id number] DATE OF SERVICE: 01/24/2017 REQUESTING PHYSICIAN: Sparkle Thibodeaux DO. CLINICAL HISTORY: The patient is a 60-year-old gentleman with [id number] cardiac arrest with prolonged period of time before circulation was resumed. Another period of hypoxia followed cardiac stenting for LAD occlusion. Previous EEG showed generalized slowing. This EEG is being requested due to hand tremor and concern for subclinical status epilepticus causing the patient to remain unresponsive. DESCRIPTION: The patient is comatose, intubated and on a respirator. There is evidence of 2-3 hertz bursts of generalized sharp and slow waves, followed by electrocerebral silence for 1-2 seconds. This rhythm persists throughout the recording with intervals at x1 second and others as long as 3 seconds. There are no electrophysiologic seizures noted throughout the recording. The lidar technician applied deep pressure to the great toe with no change in rhythm. The lidar technician calls to the patient with no change in rhythm. ACTIVATION: Photic stimulation did not reveal any photic driving or photoparoxysmal discharges. RHYTHM STRIP: Regular rhythm noted. IMPRESSION: Abnormal electroencephalogram, patient comatose. This electroencephalogram shows burst suppression pattern, which is consistent with severe anoxic injury. The tremulousness seen in the patient's left hand during examination was not apparent during this electroencephalogram according to the lidar technician. These findings were discussed with Dr. Tavera who agrees to convey the results to the patient's family. Clinical correlation advised. HIEN
[2017-01-25 06:36] LABS: Mean Corpuscular Volume 85.6 fL (81-100)
[2017-01-25 06:37] LABS: BASOPHILS % (AUTO) 0.2 % (0-3); EOSINOPHILS % (AUTO) 0.7 % (0-5); MONOCYTES % (AUTO) 19.1 % (4-12); Mean Corpuscular Hemoglobin 27.7 pg (27.0-35.0); NEUTROPHILS % (AUTO) 65.8 % (40-74); Platelet Count 125 bil/L (150-400)
[2017-01-25] MEDS: levETIRAcetam Inj 1,000 MG in IV Premix 1 EACH IV SCH ×3 (08:30→19:39)
--- NOTE | 2017-01-25 08:30 | DRSVH ---
PROCEDURE: X-RAY CHEST ONE VIEW, PORTABLE ([id number]) INDICATIONS: respiratory failure following cardiac arrest TECHNIQUE: One view of the chest was acquired. COMPARISON: [facility], CR, XR CHEST 1VW, 01/24/2017, 22:49. [facility], CR, XR CHEST 1VW (PORTABLE), 01/21/2017, 3:54. FINDINGS: Surgical changes and devices: Central line from right sided approach is stable in appearance, as is t he endotracheal tube and the nasogastric tube. Lungs and pleura: No pleural effusions or pneumothorax. Lungs are mildly infiltrated at the retroca rdiac left lower lobe but the patient is tilted and rotated leftward with reduced inspiratory volume. Mediastinum: Mediastinal contours appear normal. Heart size is normal. Bones and chest wall: No suspicious bony lesions. Overlying soft tissues appear unremarkable. IMPRESSION: Lines and tubes in stable position, retrocardiac left lower lobe alveolar infiltration is again noted and may represent aspiration but as noted above the patient is tilted and rotated leftwa rd with reduced inspiration and therefore atelectasis may explain the appearance. Dictated by: Cristóbal Barboza M.D. on 01/25/2017 at 8:26 Approved by: Cristóbal Barboza M.D. on 01/25/2017 at 8:27
[2017-01-25] MEDS: Norepineph 8,000 mCg/250 mL NS 8,000 MCG in IV Premix 1 EACH IV SCH ×2 (08:58→15:58)
[2017-01-25] MEDS: LacriLube S.O.P. 3.5 Gm Ophthalmic Ointment BOTH_EYES SCH ×2 (09:17→19:39)
[2017-01-25] MEDS: Valproate Sodium Inj 500 MG in Dextrose 5% 50 ML IV SCH ×2 (09:18→19:40)
--- NOTE | 2017-01-25 10:02 | PCM.PNMED ---
Subjective Date of Service Jan 25, 2017 Subjective 66 yo man with h/o HTN and dyslipidemia admitted after OOHCA at home, requiring multiple rounds CPR and ACLS before ROSC. No awakening after ROSC and was taken to slab off mill tender where he underwent PCI with 3 CARLOS ALBERTO to LAD. By time of admission to ICU had already developed seizure like movements. Completed therapeutic temperature management after 24 hours and all sedation withdrawn yesterday. Initial CT unremarkable but F/U CT on day 3 showed evolving diffuse injury with loss of anderson-white differentiation. EEG obtained earlier while on continuous sedation showed diffuse slowing without burst suppression or epileptiform discharges but repeat EEG on 01/[address] Ramirez of Neurology kindly consulted on Mr. Robles yesterday and her input is very much appreciated Continues on Keppra and valproate. Propofol restarted at 10 for tremors which occasionally generalized with stimulation. Now appears well controlled. Family at bedside updated as to events and prognosis reaffirmed. I've told them that he has no realistic chance of neurologic recovery to the point that he would have awareness or any ability to interact with others. They all state that he would not want to be maintained in that state although they want to wait until Friday before making a final decision to withdraw. We discussed the process of vent withdrawal and answered their questions. The family also stated that Mr. Robles had expressed interest in organ donation and they request that we contact the organ agency on his behalf. Exam Vital Signs Vital Sign - Last Date Time Temp Pulse Resp B/P Pulse Ox O2 Delivery O2 Flow Rate FiO2 01/25/17 08:52 36.8 63 22 121/61 97 Mechanical Ventilator 30 Intake and Output 01/24/17 01/24/17 01/25/17 Cumulative From/Thru 15:00 23:00 07:00 01/19/17 15:42 - 01/25/17 06:07 Intake Total 1139 ml 1919 ml 94919 ml Output Total 2950 ml 1550 ml 27321 ml Balance -1811 ml 369 ml 8443 ml Intake IV Total 1139 ml 1400 ml 40448 ml Tube Feeding 439 ml 720 ml Tube Irrigant 80 ml 610 ml Output Urine Total 2950 ml 1550 ml 81645 ml Gastric Drainage Total 450 ml Emesis 300 ml # Bowel Movements 0 0 Exam WDWN man in NAD Pupils 5 mm and equal, Gaze conjugate, Fine tremor Lt hand and wrist. No gross myoclonus. + spont respirations Lungs Decreased breath sounds with very coarse crackles and some rhonchi, Improved with suctioning CV RRR, no m/g/r Abd Soft, normal BTs Ext warm, 2+ LE edema to knees Lab and Diagnostics Result Diagram: 01/25/17 0555 01/25/17 0555 Microbiology 01/20/17 Blood Culture -No growth at 2 days 01/19/17 MRSA (PCR) - Negative 01/19/17 Sputum Quality Screen - Final, Complete 01/19/17 Sputum Culture -MODERATE NORMAL WOODY PRESENT X-Rays, CTs and MRIs (01/19/17) CT BRAIN WITHOUT CONTRAST IMPRESSION: No acute intracranial abnormalities. Dictated and approved by: Juan A Lang M.D. on 01/19/2017 at 16:31 (01/20/17) X-RAY CHEST ONE VIEW, PORTABLE IMPRESSION: Repositioned aortic balloon pump. Dictated and approved by: Gem Rogers M.D. on 01/20/2017 at 9:22 (01/20/17) X-RAY CHEST ONE VIEW, PORTABLE IMPRESSION: 1. Lines and tubes as above. 2. Nodular opacity projected over the left lower lobe. Pulmonary nodule cannot be excluded and continued radiographic followup is recommended. This may represent a nipple shadow. Interpreted and approved by: Gem Rogers MD on 01/20/2017 at 9:30 (01/21/17) X-RAY CHEST ONE VIEW, PORTABLE IMPRESSION: No definite acute cardiopulmonary disease. Interpreted and approved by: Nadiya Browne MD on 01/21/2017 at 10:19 (01/22/17) CT BRAIN WITHOUT CONTRAST IMPRESSION: 1. Findings consistent with evolving anoxic brain injury involving the left parietal and posterior left frontal lobes. 2. Bilateral ethmoid and left maxillary sinus mucosal thickening, presumably related to intubation. Moderate left mastoid air cell fluid is also now present. Dictated and approved by: Juan A Lang M.D. on 01/22/2017 at 10:02 . Cardiac Echo Impressions Echocardiogram Report Interpretation Summary The left ventricle is normal in size. Left ventricular systolic function is moderately reduced. Left ventricular ejection fraction is estimated to be 40%. LVEF has decreased since prior study. There is hypokinesis to akinesis along the apical, anteroseptum, anterior, and part of the anterolateral wall. LV wall motion abnormalities are new since 06/18/2011. The right ventricle is normal in size and function. The right ventricular systolic pressure is estimated at 37 mmHg assuming a right atrial pressure of 15 mm Hg. The left atrial size is normal. Right atrial size is normal. There is no significant valvular heart disease. The ascending aorta is mildly enlarged. Additional Diagnostics (01/20/2017) EEG IMPRESSION: Abnormal electroencephalogram due to slowing. No epileptiform abnormalities seen and no electrophysiologic evidence to suggest seizures. Shivering episodes are associated with only muscle artifact. Recommend repeat EEG if clinical suspicion for epilepsy is high or the patient fails to regain consciousness. Slow activity can be seen due to medications or generalized brain dysfunction or metabolic problems. Recommend repeat EEG if patient fails to regain consciousness. Jazmyn Ramirez MD 01/20/17 1801 Assessment & Plan IMP Out of Hospital VF arrest / STEMI with prolonged time to ROSC, s/p PIC to LAD. Required IABP briefly after intervention due to cardiogenic shock now resolved. Anoxic ischemic brain injury, This appears to be severe given his exam and recent EEG showing a burst suppression pattern. Family aware and contemplating withdrawal of vent on Friday and would like to explore organ donation. Volume overload REC Keppa/Valproate. PRN propofol to control tremors Contact organ procurement agency Serial labs and exams GI Prophylaxis: H2 britney VTE Prophylaxis: Sub-Q Heparin (Unfractionated) VTE Mechanical Devices: Intermittant Pneumatic CD Resuscitation Status: CPR: Attempt Resuscitation Wallace Tavera MD Jan 25, 2017 10:02 Unasyn to cover aspiration pneumonia. - Blood/sputum cultures negative thus far - Echocardiogram as above Acute respiratory failure. Present on admission. Active. - Secondary to cardiac arrest. - Continue mechanical ventilation Anoxic brain injury, acute. Present on admission. Active. - Secondary to cardiac arrest and CPR prior to admission. Patient without purposeful movement or signs of mentation despite reduction in sedatives. No gag reflex and pupils are not reactive to light. - EEG showed slow activity but no epileptiform abnormalities. - Repeat head CT on 01/22 with findings consistent with evolving anoxic brain injury - Neurology consulted. Seizure-like activity, acute. Not present on admission. Stable. - Patient with seizure-like activity after cooling to 32.8 C. - EEG results as above. - Continue Bupropion, Keppra, propofol and valproic acid with plan to discontinue as above Leukocytosis, acute. Present on admission. Active. - WBC on admission 11.3 and remains elevated at 25.3 but trending down. Patient started on Unasyn empirically to cover aspiration pneumonia. - Procalcitonin trended down, blood/sputum cultures negative - Repeat CXR, CBC Lactic acidosis, acute. Present on admission. Active - Secondary to cardiac arrest and cardiogenic shock. - Treat underlying cardiac causes - Continue to monitor Hyperglycemia, acute. Present on admission. - BG 254 on admission, increased to 324.Likely acute stress reaction. No history of diabetes. - A1c 5.6 - Continue insulin gtt, bedside glucose monitoring Pain Evaluation: Adequate Pain Control GI Prophylaxis: H2 britney VTE Prophylaxis: Sub-Q Heparin (Unfractionated) VTE Mechanical Devices: Intermittant Pneumatic CD Resuscitation Status: CPR: Attempt Resuscitation LUKAS KUHN DO GI Prophylaxis: H2 britney VTE Prophylaxis: Sub-Q Heparin (Unfractionated) VTE Mechanical Devices: Intermittant Pneumatic CD Resuscitation Status: CPR: Attempt Resuscitation Wallace Tavera MD Jan 25, 2017 10:02
--- NOTE | 2017-01-25 12:48 | PCM.PNMED ---
Subjective Date of Service Jan 25, 2017 Subjective Patient is intubated and sedated. Review of systems and subjective not obtainable. There are no significant overnight events. Exam Vital Signs Vital Sign - Last Date Time Temp Pulse Resp B/P Pulse Ox O2 Delivery O2 Flow Rate FiO2 01/25/17 10:44 61 132/69 99 30 01/25/17 08:52 36.8 22 Mechanical Ventilator Intake and Output 01/24/17 01/24/17 01/25/17 Cumulative From/Thru 15:00 23:00 07:00 01/19/17 15:42 - 01/25/17 06:07 Intake Total 1139 ml 1919 ml 03972 ml Output Total 2950 ml 1550 ml 39439 ml Balance -1811 ml 369 ml 8443 ml Intake IV Total 1139 ml 1400 ml 47348 ml Tube Feeding 439 ml 720 ml Tube Irrigant 80 ml 610 ml Output Urine Total 2950 ml 1550 ml 70874 ml Gastric Drainage Total 450 ml Emesis 300 ml # Bowel Movements 0 0 Exam Intubated and sedated. Patient remains notable for having minimal corneal reflexes as well as fixed gaze. He also has persistent myoclonic activity of the left upper extremity. Anicteric sclera. Conjugate gaze Endotracheal tube and OG tube are in place Lungs are clear with normal rate and effort Heart is regular without murmur gallop or rub Abdomen soft nontender, flat Extremities are free of edema. Skin is free of rash or lesions. Patient does have mild clonus of the left arm intermittently. IVs and Medications Medications Reviewed: Medications were reviewed in detail Lab and Diagnostics Result Diagram: 01/25/17 0555 01/25/17 0555 Microbiology 01/20/17 Blood Culture -No growth at 2 days 01/19/17 MRSA (PCR) - Negative 01/19/17 Sputum Quality Screen - Final, Complete 01/19/17 Sputum Culture -MODERATE NORMAL WOODY PRESENT X-Rays, CTs and MRIs (01/19/17) CT BRAIN WITHOUT CONTRAST IMPRESSION: No acute intracranial abnormalities. Dictated and approved by: Juan A Lang M.D. on 01/19/2017 at 16:31 (01/20/17) X-RAY CHEST ONE VIEW, PORTABLE IMPRESSION: Repositioned aortic balloon pump. Dictated and approved by: Gem Rogers M.D. on 01/20/2017 at 9:22 (01/20/17) X-RAY CHEST ONE VIEW, PORTABLE IMPRESSION: 1. Lines and tubes as above. 2. Nodular opacity projected over the left lower lobe. Pulmonary nodule cannot be excluded and continued radiographic followup is recommended. This may represent a nipple shadow. Interpreted and approved by: Gem Rogers MD on 01/20/2017 at 9:30 (01/21/17) X-RAY CHEST ONE VIEW, PORTABLE IMPRESSION: No definite acute cardiopulmonary disease. Interpreted and approved by: Nadiya Browne MD on 01/21/2017 at 10:19 (01/22/17) CT BRAIN WITHOUT CONTRAST IMPRESSION: 1. Findings consistent with evolving anoxic brain injury involving the left parietal and posterior left frontal lobes. 2. Bilateral ethmoid and left maxillary sinus mucosal thickening, presumably related to intubation. Moderate left mastoid air cell fluid is also now present. Dictated and approved by: Juan A Lang M.D. on 01/22/2017 at 10:02 . Cardiac Echo Impressions Echocardiogram Report Interpretation Summary The left ventricle is normal in size. Left ventricular systolic function is moderately reduced. Left ventricular ejection fraction is estimated to be 40%. LVEF has decreased since prior study. There is hypokinesis to akinesis along the apical, anteroseptum, anterior, and part of the anterolateral wall. LV wall motion abnormalities are new since 06/18/2011. The right ventricle is normal in size and function. The right ventricular systolic pressure is estimated at 37 mmHg assuming a right atrial pressure of 15 mm Hg. The left atrial size is normal. Right atrial size is normal. There is no significant valvular heart disease. The ascending aorta is mildly enlarged. Additional Diagnostics (01/20/2017) EEG IMPRESSION: Abnormal electroencephalogram due to slowing. No epileptiform abnormalities seen and no electrophysiologic evidence to suggest seizures. Shivering episodes are associated with only muscle artifact. Recommend repeat EEG if clinical suspicion for epilepsy is high or the patient fails to regain consciousness. Slow activity can be seen due to medications or generalized brain dysfunction or metabolic problems. Recommend repeat EEG if patient fails to regain consciousness. Jazmyn Ramirez MD 01/20/17 1801 Assessment & Plan 66 y/o male with a history of hypertension and hyperlipidemia who presented to the ED intubated, following resuscitation in the field for an out of hospital cardiac arrest. Now status post PCI with stenting of the LAD and placement of intraaortic balloon pump. Hospital and intubation day #5. Patient remains off sedation and without volitional movements. no corneal reflexes and continued ocular myoclonus and decerebrate posturing. Family met with neurology and understands that meaningful recover is very unlikely. Will wait till Friday for further actions including end of life care or extubation. #. Out of hospital cardiac arrest secondary to acute anterior STEMI. Present on admission and stable. - Total time of CPR ~25 minutes with 3 shocks, 4 rounds of epinephrine and ROSC after the final shock. - s/p PCI on 01/20 with 3 drug-eluting stents placed in the LAD as well as a temporary intra-aortic balloon pump (removed 01/20). - Echocardiogram showed an EF of 40% as well as hypokinesis to akinesis along the apical, anteroseptum, anterior, and part of the anterolateral wall. - Continue aspirin, statin and prasugrel per Cardiology. Appreciate recommendations and expertise. #. Cardiogenic Shock (acute systolic heart failure), acute. Present on admission. Stable. - Secondary to acute STEMI with possible infectious component related to aspiration during CPR. - WBC on admission 11.3, most recently 25.3 and trending down. Pt receiving Unasyn to cover aspiration pneumonia. - Blood/sputum cultures negative thus far - Echocardiogram as above #. Acute respiratory failure with hypoxia. Present on admission. Active and improving. - Secondary to cardiac arrest. - Continue mechanical ventilation , wean oxygen as able. #. Probable aspiration pneumonia, present on admission and improving. -Continue Unasyn #. Anoxic brain injury, acute. Present on admission. Active and not improving. - Secondary to cardiac arrest and CPR prior to admission. Patient without purposeful movement or signs of mentation despite reduction in sedatives. No gag reflex and pupils are not reactive to light. - EEG showed slow activity but no epileptiform abnormalities. - Repeat head CT on 01/22 with findings consistent with evolving anoxic brain injury - Neurology consulted. Patient will be reassessed on Friday. The family is fully prepared to withdrawal care at that point. #. Seizure-like activity, acute. Not present on admission. Stable and intermittently active.. - Patient with seizure-like activity after cooling to 32.8 C. - EEG results as above. - Continue Bupropion, Keppra, propofol and valproic acid with plan to discontinue as above #. Leukocytosis, acute. Present on admission. Active and improved.. - WBC on admission 11.3 and remains elevated at 25.3 but trending down. Patient started on Unasyn empirically to cover aspiration pneumonia. - Procalcitonin trended down, blood/sputum cultures negative - Repeat CXR, CBC #. Lactic acidosis, acute. Present on admission. Active and resolved - Secondary to cardiac arrest and cardiogenic shock. - Treat underlying cardiac causes - Continue to monitor #. Hyperglycemia, acute. Present on admission and improved. - BG 254 on admission, increased to 324.Likely acute stress reaction. No history of diabetes. - A1c 5.6 - Continue insulin gtt, bedside glucose monitoring Pain Evaluation: Adequate Pain Control GI Prophylaxis: H2 britney VTE Prophylaxis: Sub-Q Heparin (Unfractionated) VTE Mechanical Devices: Intermittant Pneumatic CD Resuscitation Status: CPR: Attempt Resuscitation Disposition plan. Anticipate likely withdrawal of support with compassionate extubation on Friday. This is based on the expectation of minimal improvement neurologically. We will also continue to investigate the possibility of organ donation. GI Prophylaxis: H2 britney VTE Prophylaxis: Sub-Q Heparin (Unfractionated) VTE Mechanical Devices: Intermittant Pneumatic CD Resuscitation Status: CPR: Attempt Resuscitation Heladio Hernandez MD Jan 25, 2017 12:48
--- NOTE | 2017-01-25 14:40 | NUR ---
Social Work Note: Continued Discharge Planning Data& Assessment: Per MD in multidisciplinary rounds, pt prognosis remains poor. Pt to continue neuro monitoring for the next 3-4 days prior to any final decisions being made by pt family regarding possible transition to comfort care. No MD orders identified at this time. SW to continue to follow for pt progression, prognosis and any pt or pt family needs. Plan: Pt remains on the vent and medically complex. SW to follow and r/o comfort care. SW to continue to follow for pt progression, prognosis and any pt or pt family needs. SHARON Guerin
[2017-01-25] MEDS: Famotidine Inj 20 MG in IV Premix 1 EACH IV SCH ×2 (15:49→19:40)
--- NOTE | 2017-01-25 19:30 | NUR ---
Neuro/Seizure activity/Propofol Noted seizure-like tremors primarily LA with even minimal touch or bedside care of position change. Depacote + Keppra + Propofol administered as per orders. Propofol gtt now up to 20mcg/kg/min. Family @ bedside keeping zabala; also family's Spiritual Leaders visited @ pt's 's request.
[2017-01-25] MEDS ORDERED: KCl 40 mEq/100 mL (CENTRAL) 40 MEQ in IV Premix 1 EACH IV ONE (20:10)
[2017-01-26] VITALS (11 sets, daily range): BP systolic 100–118; BP diastolic 56–65; PULSE 56–64; RESP 14–18; O2SAT 96–100
[2017-01-26] MEDS: Chlorhexidine 0.12% 15 mL Oral Solution MT SCH ×6 (00:37→20:17)
[2017-01-26] MEDS: Ampicillin-Sulbactam Inj 3,000 MG in 0.9% Sodium Chloride 100 ML IV SCH ×4 (00:37→17:40)
[2017-01-26] MEDS: Heparin 5,000 Unit/mL Inj SUBQ SCH ×3 (00:37→16:32)
[2017-01-26] MEDS: Propofol Inj 1,000,000 MCG in IV Premix 1 EACH IV SCH ×5 (00:37→21:07)
[2017-01-26] MEDS: Dextrose 5% 1,000 ML IV SCH ×2 (00:38→10:33)
[2017-01-26] MEDS: Midazolam Inj 100 MG in IV Premix 1 EACH IV SCH ×2 (00:38→23:19)
[2017-01-26 03:11] LABS: Mean Corpuscular Hemoglobin 27.6 pg (27.0-35.0); Mean Corpuscular Volume 85.2 fL (81-100); Platelet Count 133 bil/L (150-400)
[2017-01-26 03:34] LABS: BASOPHILS % (AUTO) 1 % (0-3); EOSINOPHILS % (AUTO) 3 % (0-5); MONOCYTES % (AUTO) 13 % (4-12); NEUTROPHILS % (AUTO) 74 % (40-74)
[2017-01-26] MEDS ORDERED: KCl 40 mEq/100 mL Premix (K 3 - 3.7 & Creat < 2) IV ONE (04:15)
--- NOTE | 2017-01-26 06:00 | NUR ---
Neuro Pt having inceasing tremor activity. Propofol effective for minimizing and titrated up so pt can tolerate turns and pt care without seizure like tremors. Care ongoing
[2017-01-26] MEDS ORDERED: KCl 40 mEq/100 mL (CENTRAL) 40 MEQ in IV Premix 1 EACH IV ONE ×2 (08:40→17:15)
--- NOTE | 2017-01-26 08:40 | PCM.PNMED ---
Subjective Date of Service Jan 26, 2017 Subjective Patient remains intubated with minimal neurologic activity. Review of systems and subjective are not obtainable. No overnight events. Exam Vital Signs Vital Sign - Last Date Time Temp Pulse Resp B/P Pulse Ox O2 Delivery O2 Flow Rate FiO2 01/26/17 08:04 60 111/59 98 30 01/26/17 00:47 Ventilator 01/26/17 00:47 37.7 16 Intake and Output 01/25/17 01/25/17 01/26/17 Cumulative From/Thru 15:00 23:00 07:00 01/19/17 15:42 - 01/25/17 19:00 Intake Total 1697 ml 68567 ml Output Total 800 ml 13952 ml Balance 897 ml 9340 ml Intake IV Total 1048 ml 55709 ml Tube Feeding 528 ml 1248 ml Tube Irrigant 121 ml 731 ml Output Urine Total 800 ml 82772 ml Gastric Drainage Total 450 ml Emesis 300 ml # Bowel Movements 0 0 Exam Intubated. Patient has no purposeful movement. His pupils are fixed, gaze is conjugate. Minimal corneal reflexes. He does have global anasarca including extremities and face Anicteric sclera. Lungs are clear with normal rate and effort Heart is regular without murmur gallop or rub Abdomen soft nontender, flat Extremities are free of edema. Skin is free of rash or lesions. No spontaneous movement of arms or legs. No mild clonus today. IVs and Medications Medications Reviewed: Medications were reviewed in detail Lab and Diagnostics Result Diagram: 01/26/17 0300 01/26/17 0300 Microbiology 01/20/17 Blood Culture -No growth at 2 days 01/19/17 MRSA (PCR) - Negative 01/19/17 Sputum Quality Screen - Final, Complete 01/19/17 Sputum Culture -MODERATE NORMAL WOODY PRESENT X-Rays, CTs and MRIs (01/19/17) CT BRAIN WITHOUT CONTRAST IMPRESSION: No acute intracranial abnormalities. Dictated and approved by: Juan A Lang M.D. on 01/19/2017 at 16:31 (01/20/17) X-RAY CHEST ONE VIEW, PORTABLE IMPRESSION: Repositioned aortic balloon pump. Dictated and approved by: Gem Rogers M.D. on 01/20/2017 at 9:22 (01/20/17) X-RAY CHEST ONE VIEW, PORTABLE IMPRESSION: 1. Lines and tubes as above. 2. Nodular opacity projected over the left lower lobe. Pulmonary nodule cannot be excluded and continued radiographic followup is recommended. This may represent a nipple shadow. Interpreted and approved by: Gem Rogers MD on 01/20/2017 at 9:30 (01/21/17) X-RAY CHEST ONE VIEW, PORTABLE IMPRESSION: No definite acute cardiopulmonary disease. Interpreted and approved by: Nadiya Browne MD on 01/21/2017 at 10:19 (01/22/17) CT BRAIN WITHOUT CONTRAST IMPRESSION: 1. Findings consistent with evolving anoxic brain injury involving the left parietal and posterior left frontal lobes. 2. Bilateral ethmoid and left maxillary sinus mucosal thickening, presumably related to intubation. Moderate left mastoid air cell fluid is also now present. Dictated and approved by: Juan A Lang M.D. on 01/22/2017 at 10:02 . Cardiac Echo Impressions Echocardiogram Report Interpretation Summary The left ventricle is normal in size. Left ventricular systolic function is moderately reduced. Left ventricular ejection fraction is estimated to be 40%. LVEF has decreased since prior study. There is hypokinesis to akinesis along the apical, anteroseptum, anterior, and part of the anterolateral wall. LV wall motion abnormalities are new since 06/18/2011. The right ventricle is normal in size and function. The right ventricular systolic pressure is estimated at 37 mmHg assuming a right atrial pressure of 15 mm Hg. The left atrial size is normal. Right atrial size is normal. There is no significant valvular heart disease. The ascending aorta is mildly enlarged. Additional Diagnostics (01/20/2017) EEG IMPRESSION: Abnormal electroencephalogram due to slowing. No epileptiform abnormalities seen and no electrophysiologic evidence to suggest seizures. Shivering episodes are associated with only muscle artifact. Recommend repeat EEG if clinical suspicion for epilepsy is high or the patient fails to regain consciousness. Slow activity can be seen due to medications or generalized brain dysfunction or metabolic problems. Recommend repeat EEG if patient fails to regain consciousness. Jazmyn Ramirez MD 01/20/17 7693 Assessment & Plan 66 y/o male with a history of hypertension and hyperlipidemia who presented to the ED intubated, following resuscitation in the field for an out of hospital cardiac arrest. Now status post PCI with stenting of the LAD and placement of intraaortic balloon pump. Hospital and intubation day #5. Patient remains off sedation and without volitional movements. no corneal reflexes and continued ocular myoclonus and decerebrate posturing. Family met with neurology and understands that meaningful recover is very unlikely. Will wait till Friday for further actions including end of life care or extubation. #. Out of hospital cardiac arrest secondary to acute anterior STEMI. Present on admission and stable. - Total time of CPR ~25 minutes with 3 shocks, 4 rounds of epinephrine and ROSC after the final shock. - s/p PCI on 01/20 with 3 drug-eluting stents placed in the LAD as well as a temporary intra-aortic balloon pump (removed 01/20). - Echocardiogram showed an EF of 40% as well as hypokinesis to akinesis along the apical, anteroseptum, anterior, and part of the anterolateral wall. - Continue aspirin, statin and prasugrel per Cardiology. Appreciate recommendations and expertise. No changes to this medical plan at this point. #. Cardiogenic Shock (acute systolic heart failure), acute. Present on admission. Stable. - Secondary to acute STEMI with possible infectious component related to aspiration during CPR. - WBC on admission 11.3, most recently 25.3 and trending down. Pt receiving Unasyn to cover aspiration pneumonia. - Blood/sputum cultures negative thus far - Echocardiogram as above, EF of about 40%. Patient does have global anasarca secondary to resuscitation. #. Acute respiratory failure with hypoxia. Present on admission. Active and stable. - Secondary to cardiac arrest. - Continue mechanical ventilation , wean oxygen as able. #. Probable aspiration pneumonia, present on admission and improving. He did have intermittent fevers overnight. -Continue Unasyn, no other changes. #. Anoxic brain injury, acute. Present on admission. Active and not improving. - Secondary to cardiac arrest and CPR prior to admission. Patient without purposeful movement or signs of mentation despite reduction in sedatives. No gag reflex and pupils are not reactive to light. - EEG showed slow activity but no epileptiform abnormalities. - Repeat head CT on 01/22 with findings consistent with evolving anoxic brain injury - Neurology consulted. Patient will be reassessed on Friday. The family is fully prepared to withdrawal care at that point. EEG was done this morning and will be read by neurology. They will reevaluate on Friday. The family is fairly fully prepared for a compassionate extubation. #. Seizure-like activity, acute. Not present on admission. Stable and intermittently active.. - Patient with seizure-like activity after cooling to 32.8 C. - EEG results as above. - Continue Bupropion, Keppra, propofol and valproic acid with plan to discontinue as above #. Leukocytosis, acute. Present on admission. Active and improved.. - WBC on admission 11.3 and remains elevated at 25.3 but trending down. Patient started on Unasyn empirically to cover aspiration pneumonia. - Procalcitonin trended down, blood/sputum cultures negative - Repeat CXR, CBC #. Lactic acidosis, acute. Present on admission. Active and resolved - Secondary to cardiac arrest and cardiogenic shock. - Treat underlying cardiac causes - Continue to monitor #. Hyperglycemia, acute. Present on admission and improved. - BG 254 on admission, increased to 324.Likely acute stress reaction. No history of diabetes. - A1c 5.6 - Continue insulin gtt, bedside glucose monitoring Pain Evaluation: Adequate Pain Control GI Prophylaxis: H2 britney VTE Prophylaxis: Sub-Q Heparin (Unfractionated) VTE Mechanical Devices: Intermittant Pneumatic CD Resuscitation Status: CPR: Attempt Resuscitation Disposition plan. Anticipate likely withdrawal of support with compassionate extubation on Friday. This is based on the expectation of minimal improvement neurologically. We will also continue to investigate the possibility of organ donation. GI Prophylaxis: H2 britney VTE Prophylaxis: Sub-Q Heparin (Unfractionated) VTE Mechanical Devices: Intermittant Pneumatic CD Resuscitation Status: CPR: Attempt Resuscitation Heladio Hernandez MD Jan 26, 2017 08:40
[2017-01-26] MEDS: Valproate Sodium Inj 500 MG in Dextrose 5% 50 ML IV SCH ×2 (08:41→20:17)
[2017-01-26] MEDS: LacriLube S.O.P. 3.5 Gm Ophthalmic Ointment BOTH_EYES SCH ×2 (08:41→20:17)
[2017-01-26] MEDS: levETIRAcetam Inj 1,000 MG in IV Premix 1 EACH IV SCH ×2 (08:42→20:17)
[2017-01-26] MEDS: Famotidine Inj 20 MG in IV Premix 1 EACH IV SCH ×2 (08:51→20:17)
--- NOTE | 2017-01-26 09:38 | PCM.PNMED ---
Subjective Date of Service Jan 26, 2017 Subjective 66 yo man with h/o HTN and dyslipidemia admitted after OOHCA at home, requiring multiple rounds CPR and ACLS before ROSC. No awakening after ROSC and was taken to [facility] where he underwent PCI with 3 CARLOS ALBERTO to LAD. By time of admission to ICU had already developed seizure like movements. Completed therapeutic temperature management after 24 hours and all sedation withdrawn yesterday. Initial CT unremarkable but F/U CT on day 3 showed evolving diffuse injury with loss of anderson-white differentiation. EEG obtained earlier while on continuous sedation showed diffuse slowing without burst suppression or epileptiform discharges but repeat EEG on 01/24 showed burst suppression. No new critical events over noc. patient's and daughter at bedside seem to have accepted the situation and expressed readiness to proceed with extubation to comfort care tomorrow Exam Vital Signs Vital Sign - Last Date Time Temp Pulse Resp B/P Pulse Ox O2 Delivery O2 Flow Rate FiO2 01/26/17 08:04 60 111/59 98 30 01/26/17 00:47 Ventilator 01/26/17 00:47 37.7 16 Intake and Output 01/25/17 01/25/17 01/26/17 Cumulative From/Thru 15:00 23:00 07:00 01/19/17 15:42 - 01/25/17 19:00 Intake Total 1697 ml 41651 ml Output Total 800 ml 48749 ml Balance 897 ml 9340 ml Intake IV Total 1048 ml 67325 ml Tube Feeding 528 ml 1248 ml Tube Irrigant 121 ml 731 ml Output Urine Total 800 ml 65386 ml Gastric Drainage Total 450 ml Emesis 300 ml # Bowel Movements 0 0 Exam WDWN man, orally intubated, No spont eye opening or movements 37.7 Lungs CTA! CV RRR no m/g/r Abd Soft, normal BTs Ext Warm, pulses 2+ wrist and ankles Neuro PER4 mm, reactive Lab and Diagnostics Result Diagram: 01/26/17 0300 01/26/17 0300 Microbiology 01/20/17 Blood Culture -No growth at 2 days 01/19/17 MRSA (PCR) - Negative 01/19/17 Sputum Quality Screen - Final, Complete 01/19/17 Sputum Culture -MODERATE NORMAL WOODY PRESENT X-Rays, CTs and MRIs (01/19/17) CT BRAIN WITHOUT CONTRAST IMPRESSION: No acute intracranial abnormalities. Dictated and approved by: Juan A Lang M.D. on 01/19/2017 at 16:31 (01/20/17) X-RAY CHEST ONE VIEW, PORTABLE IMPRESSION: Repositioned aortic balloon pump. Dictated and approved by: Gem Rogers M.D. on 01/20/2017 at 9:22 (01/20/17) X-RAY CHEST ONE VIEW, PORTABLE IMPRESSION: 1. Lines and tubes as above. 2. Nodular opacity projected over the left lower lobe. Pulmonary nodule cannot be excluded and continued radiographic followup is recommended. This may represent a nipple shadow. Interpreted and approved by: Gem Rogers MD on 01/20/2017 at 9:30 (01/21/17) X-RAY CHEST ONE VIEW, PORTABLE IMPRESSION: No definite acute cardiopulmonary disease. Interpreted and approved by: Nadiya Browne MD on 01/21/2017 at 10:19 (01/22/17) CT BRAIN WITHOUT CONTRAST IMPRESSION: 1. Findings consistent with evolving anoxic brain injury involving the left parietal and posterior left frontal lobes. 2. Bilateral ethmoid and left maxillary sinus mucosal thickening, presumably related to intubation. Moderate left mastoid air cell fluid is also now present. Dictated and approved by: Juan A Lang M.D. on 01/22/2017 at 10:02 . Cardiac Echo Impressions Echocardiogram Report Interpretation Summary The left ventricle is normal in size. Left ventricular systolic function is moderately reduced. Left ventricular ejection fraction is estimated to be 40%. LVEF has decreased since prior study. There is hypokinesis to akinesis along the apical, anteroseptum, anterior, and part of the anterolateral wall. LV wall motion abnormalities are new since 06/18/2011. The right ventricle is normal in size and function. The right ventricular systolic pressure is estimated at 37 mmHg assuming a right atrial pressure of 15 mm Hg. The left atrial size is normal. Right atrial size is normal. There is no significant valvular heart disease. The ascending aorta is mildly enlarged. Additional Diagnostics (01/20/2017) EEG IMPRESSION: Abnormal electroencephalogram due to slowing. No epileptiform abnormalities seen and no electrophysiologic evidence to suggest seizures. Shivering episodes are associated with only muscle artifact. Recommend repeat EEG if clinical suspicion for epilepsy is high or the patient fails to regain consciousness. Slow activity can be seen due to medications or generalized brain dysfunction or metabolic problems. Recommend repeat EEG if patient fails to regain consciousness. Jazmyn Ramirez MD 01/20/17 1801 Assessment & Plan IMP Out of Hospital VF arrest / STEMI with prolonged time to ROSC, s/p PCI to LAD. Required IABP briefly after intervention due to cardiogenic shock now resolved. Anoxic ischemic brain injury, This appears to be severe given his exam and recent EEG showing a burst suppression pattern. Family aware and contemplating withdrawal of vent on Friday and would like to explore organ donation. 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 Volume overload Hypernatremia, slowly improving on D5W infusion. REC DNR Vent withdrawal 01/27 slow free water replacement GI Prophylaxis: H2 britney VTE Prophylaxis: Sub-Q Heparin (Unfractionated) VTE Mechanical Devices: Intermittant Pneumatic CD Resuscitation Status: CPR: Attempt Resuscitation Wallace Tavera MD Jan 26, 2017 09:33
--- NOTE | 2017-01-26 17:01 | NUR ---
Social Work: Continued d/c planning Data: Pt is on day 7 of hospitalization. EMR reviewed. Pt discussed in multidisciplinary rounds. states that there is a possibility of compassionate extubation on Saturday 01/27. [facility] will continue to follow. Not appropriate for initial assessment at this time as pt will likely pass at the hospital and will not need d/c planning. [facility] will continue to follow. Assessment: Pt likely to pass here. Plan: [facility] will continue to follow regarding possible compassionate extubation on 01/27. [facility] will continue to follow. SHARON Powell
[2017-01-27 00:29] VITALS: BP 106/58; O2SAT 98
[2017-01-27] MEDS: Ampicillin-Sulbactam Inj 3,000 MG in 0.9% Sodium Chloride 100 ML IV SCH ×2 (00:34→07:38)
[2017-01-27] MEDS: Heparin 5,000 Unit/mL Inj SUBQ SCH ×2 (00:34→07:39)
[2017-01-27] MEDS: Chlorhexidine 0.12% 15 mL Oral Solution MT SCH ×3 (00:34→07:38)
[2017-01-27 01:30] VITALS: BP 106/55; PULSE 56; RESP 16; O2SAT 98
[2017-01-27] MEDS: Propofol Inj 1,000,000 MCG in IV Premix 1 EACH IV SCH ×2 (03:02→07:39)
[2017-01-27] MEDS: Dextrose 5% 1,000 ML IV SCH (03:02)
--- NOTE | 2017-01-27 03:21 | NUR ---
Comfort Plan to extubate pt to comfort tomorrow. Pt family requests pt be made comfortable. Propofol gtt for prevention of seizure-like tremors. minimal turns or interventions on pt per famil request. Daughter at bedside and was in room during restaurant shift leader. Aware of status, plan, and situation. care ongoing
[2017-01-27 04:27] VITALS: BP 103/59; O2SAT 96
[2017-01-27 05:55] VITALS: BP 102/55; PULSE 52; RESP 16; O2SAT 96
[2017-01-27] MEDS: levETIRAcetam Inj 1,000 MG in IV Premix 1 EACH IV SCH (07:39)
[2017-01-27] MEDS: Valproate Sodium Inj 500 MG in Dextrose 5% 50 ML IV SCH (07:39)
[2017-01-27] MEDS: LacriLube S.O.P. 3.5 Gm Ophthalmic Ointment BOTH_EYES SCH (07:39)
[2017-01-27] MEDS: Famotidine Inj 20 MG in IV Premix 1 EACH IV SCH (07:39)
[2017-01-27 08:55] VITALS: BP 109/60; O2SAT 96
[2017-01-27] MEDS ORDERED: fentaNYL 2,500 mCg/250 mL 2,500 MCG in IV Premix 1 EACH IV SCH (09:31)
[2017-01-27] MEDS ORDERED: Midazolam Inj 100 MG in IV Premix 1 EACH IV SCH (09:31)
[2017-01-27] MEDS ORDERED: LORazepam 100 mg/100 mL Drip IV SCH ×2 (10:20)
[2017-01-27 11:10] VITALS: BP 109/60; O2SAT 97
--- NOTE | 2017-01-27 12:20 | NUR ---
Extubation to comfort/expiration Pt extubated to comfort at 1105, was on ativan gtt at 5, fentanyl gtt 100mcg, titrated to comfort with boluses PRN. Time of 1142. Family at bedside.
--- NOTE | 2017-01-27 13:36 | PCM.DC.MEX ---
Discharge Summary Date of Service Jan 27, 2017 Dates of Hospitalization Date of Hospital Admission Jan 19, 2017 at 16:09 Date of Expiration: Jan 27, 2017 Time of Expiration: 11:42 Providers: Admitting Physician: Erick Almonte MD Primary Care Physician: Saroj Galaviz MD Attending Physician: Heladio Hernandez MD Diagnosis at Time of 1. Ventricular fibrillation cardiac arrest 2. STEMI 3. Anoxic brain injury Consultations Pulmonary critical care, cardiology Neurology, Dr. Gee Procedures XRay, CTs & MRIs (01/19/17) CT BRAIN WITHOUT CONTRAST IMPRESSION: No acute intracranial abnormalities. Dictated and approved by: Juan A Lang M.D. on 01/19/2017 at 16:31 (01/20/17) X-RAY CHEST ONE VIEW, PORTABLE IMPRESSION: Repositioned aortic balloon pump. Dictated and approved by: Gem Rogers M.D. on 01/20/2017 at 9:22 (01/20/17) X-RAY CHEST ONE VIEW, PORTABLE IMPRESSION: 1. Lines and tubes as above. 2. Nodular opacity projected over the left lower lobe. Pulmonary nodule cannot be excluded and continued radiographic followup is recommended. This may represent a nipple shadow. Interpreted and approved by: Gem Rogers MD on 01/20/2017 at 9:30 (01/21/17) X-RAY CHEST ONE VIEW, PORTABLE IMPRESSION: No definite acute cardiopulmonary disease. Interpreted and approved by: Nadiya Browne MD on 01/21/2017 at 10:19 (01/22/17) CT BRAIN WITHOUT CONTRAST IMPRESSION: 1. Findings consistent with evolving anoxic brain injury involving the left parietal and posterior left frontal lobes. 2. Bilateral ethmoid and left maxillary sinus mucosal thickening, presumably related to intubation. Moderate left mastoid air cell fluid is also now present. Dictated and approved by: Juan A Lang M.D. on 01/22/2017 at 10:02 . Cardiac Echo Impression Echocardiogram Report Interpretation Summary The left ventricle is normal in size. Left ventricular systolic function is moderately reduced. Left ventricular ejection fraction is estimated to be 40%. LVEF has decreased since prior study. There is hypokinesis to akinesis along the apical, anteroseptum, anterior, and part of the anterolateral wall. LV wall motion abnormalities are new since 06/18/2011. The right ventricle is normal in size and function. The right ventricular systolic pressure is estimated at 37 mmHg assuming a right atrial pressure of 15 mm Hg. The left atrial size is normal. Right atrial size is normal. There is no significant valvular heart disease. The ascending aorta is mildly enlarged. Invasive Procedures SERVICE DATE: 01/19/2017 PROCEDURE NOTE/CARDIAC CATHETERIZATION LABORATORY: SUPERVISOR CHANNEL PROCESS: Erick Almonte MD PROCEDURES: 1. Coronary angiogram, emergent. 2. Left heart catheterization (LHC), pressure measurement. 3. Percutaneous coronary intervention (PCI), stents of mid LAD (CARLOS ALBERTO); Xience 2.5 x18; Xience 2.75 x 23 overlapping proximally; and Xience 2.75 x 23 overlapping proximally. 4. IABP (intra-aortic balloon pump). CLINICAL DETAILS: Details: This 66-year-old man presents to the cardiac catheterization laboratory emergently after he was admitted to the emergency department by EMS following collapse at home with cardiac arrest bystander CPR and ROSC (return of spontaneous circulation) by EMS following defibrillation four times and epinephrine four times and prolonged CPR over 25 minutes prior to hospital arrival. In the emergency department, he was in cardiogenic shock with hypotension; initial pre-hospital blood pressures as low as 60; and requiring epinephrine IV support at 4.2 mcg/minute. He was unresponsive on ventilator and hypothermia protocol initiated. He has no prior history of known heart disease. He took a 35 mile bike ride today in the heat; he complained of onset of indigestion-like chest discomfort; then collapsed at home sometime later. Underlying CAD risk factors include treated hypertension and possible history of hypercholesterolemia; and family history of premature coronary disease. PROCEDURAL DETAILS: I evaluated him emergently in the emergency department. I spoke with his regarding the findings, impressions and management considerations, including the recommendation to proceed to emergent cardiac catheterization for definitive diagnosis and to guide treatment options including medical therapy, anticipated PCI; or coronary bypass surgery if needed. We discussed the procedure including possible risks and complications. We discussed his critical illness and the high risk nature of the procedure, including the high likelihood of mortality. We discussed bleeding, infection, blood clots; as well injury to nerve, artery, vein or kidney; and also arrhythmia, drug reaction or others. We discussed treatment as needed including surgery, pacemaker, transfusion. We discussed more serious complications that are possible including stroke, heart attack, cardiac arrest, and emergency surgery including transfer for coronary bypass surgery. After questions and discussion, the signed informed consent to proceed. Because of a history of having an unwitnessed fall, he had a CT head prior to the catheterization laboratory which was reported to be satisfactory. He was taken to the catheterization laboratory in critical condition, including intubated, where he was prepped sterilely and draped. Prior to the procedure, he had received ASA 650 mg per rectum; and epinephrine IV infusion continued; and amiodarone in the field, as well as ongoing amiodarone infusion. CORONARY ANGIOGRAM: Arterial access is obtained without difficulty in the right common femoral artery using fluoroscopic localization over the femoral head; and modified Seldinger technique to insert a 10 cm 6-Albanian side-arm sheath. Catheters were advanced and exchanged over a long 0.035 inch J-tipped guidewire. First, the right coronary artery was imaged with a 6-Albanian JR-4 diagnostic catheter. Then, the left coronary artery was imaged with a 6-Albanian JL-4 guide catheter. LHC: At the end of the procedure a 6-Albanian pigtail catheter was advanced across the aortic valve into the left ventricle to measure LVED and pullback. No LV angiogram done. PCI of mid LAD: Diagnostic images are reviewed. Decision is made to undertake emergent high risk intervention of the occluded culprit mid LAD. The guide catheter in place was used for the intervention. For the intervention, he received a loading dose of crushed prasugrel 60 mg per OGT. Procedural anticoagulation was obtained with bolus IV heparin to achieve therapeutic ACT. Aliquots of NTG IC were used as needed. The occluded mid LAD was crossed with an interventional wire, BMW 0.014 inches x 190 cm, placed in the distal LAD. PREDILATATION: The site of occlusion was pre-dilated with a TREK balloon, 2.5 x 15 mm, inflated to a maximum of 8 atmospheres. The artery was open. The culprit site of occlusion is a subtotal 95% tubular lesion. There is also a distal 90% tubular lesion and overall the treatment site is a diffuse segment of LAD. STENTS: The distal part of the lesion was initially treated with a Xience stent, 2.5 x 18 mm, deployed at 16 atmospheres. Then, an overlapping Xience stent, 2.75 x 23 mm, was deployed overlapping proximally at 16 atmospheres. Then, a third Xience stent, 2.75 x 23 mm, was deployed at 18 atmospheres. POST DILATATION: The stented segment was post dilated at high pressure using a noncompliant TREK balloon, 2.75 distally; and 3.0 proximally. Additionally, at the end of the procedure, there was some haziness distally in the stented segment which was then post dilated again with the noncompliant 2.75 mm balloon with improved appearance. Completion angiogram showed an excellent angiographic result with resumption of KENDAL-3 flow (KENDAL-0 initially); and no residual lesions; and no evident angiographic complication. INTRA-AORTIC BALLOON PUMP (IABP): Because he was still pressor dependent and very high LVED, a balloon pump was inserted in the left common femoral artery without difficulty using fluoroscopic localization over the femoral head; and modified Seldinger technique to insert a 40 cm intra-aortic balloon pump through a sheath. The balloon pump functions well with good augmentation and unloading in systole and diastole. Procedure without difficulty. Patient tolerated procedure well and he was improved. No complication. A side-arm sheath angiogram demonstrates adequate access in the right femoral artery for closure device. Arterial hemostasis is obtained without difficulty using a 6-Albanian StarClose clip. The patient is improved with less pressor requirement; and is transferred in still critical condition from the catheterization laboratory to the CCU unit for ongoing care by the admitting hospitalist team; by the critical care team. I discussed the procedure findings and management considerations with the patient's and multiple other family members; as well as with the critical care team, Dr. Beard; and with Cardiology, Dr. Joseph. FINDINGS: 1. LMCA: Intact; and without angiographically significant lesions. 2. LAD: Mid LAD occluded. This is the culprit lesion for his infarct and cardiac arrest. The LAD is a moderate to large-sized transapical vessel. There is a small to medium diagonal branch (1.75-2 mm) at the site of the culprit subtotal LAD lesion seen when the vessel was opened. The diagonal has a moderate ostial lesion after cross by stent. The diagonal deteriorated but then improved with KENDAL-2 flow by the end of the procedure. No intervention was undertaken on this vessel. 3. LCX: Intact without angiographic stenoses. The left circumflex coronary artery is a large vessel without angiographically significant stenoses. Its distribution consists of a small to moderate sized OM followed by a large branching left posterolateral vessel. 4. RCA: Dominant. There is an intermediate 50% to 60% focal proximal lesion. The RCA is a large vessel. 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 5. LHC: LVED very high 40 mmHg; and no systolic gradient on pullback across the aortic valve. CONCLUSIONS: 1. PCI, primary PCI of culprit midLAD occlusion. 2. Adjunctive IABP. 3. Acute coronary syndrome (ACS), cardiac arrest; anterior myocardial infarction (STEMI); and cardiogenic shock. 4. Coronary artery disease (CAD), two-vessel CAD including culprit occluded midLAD; and intermediate 50% to 60% proximal RCA. RECOMMENDATIONS: 1. ECASA, indefinitely. 2. Prasugrel, plan one year if well tolerated, including ongoing Cardiology followup. I discussed with the the critical importance of mandatory dual antiplatelet therapy; and not to stop for any reason without immediate Cardiology consultation. 3. Echocardiogram. 4. Critical care support including initially ventilator, hypothermia protocol and balloon pump. 5. OMT, optimal guideline directed medical therapy for underlying CAD risk factors; and for coronary disease. Erick Almonte MD 01/19/17 [id number] Report status: Draft Transcribed by: HENRY 01/19/17 0793 REPORT#: [id number] cc: Saroj Galaviz MD; Erick Almonte MD Other Diagnostics (01/20/2017) EEG IMPRESSION: Abnormal electroencephalogram due to slowing. No epileptiform abnormalities seen and no electrophysiologic evidence to suggest seizures. Shivering episodes are associated with only muscle artifact. Recommend repeat EEG if clinical suspicion for epilepsy is high or the patient fails to regain consciousness. Slow activity can be seen due to medications or generalized brain dysfunction or metabolic problems. Recommend repeat EEG if patient fails to regain consciousness. Jazmyn Ramirez MD 01/20/17 [id number] Brief History Patient is a 66 y/o male w/ a history of HTN and HLD who presented to the ED via EMS in cardiac arrest. The patient came back home from a 36 mile bike ride today. After the ride he was complaining of "indigestion". Shortly afterwards his who was upstairs heard him collapse to the ground. She went downstairs to find him unresponsive and apneic. She called 911 who instructed her to begin CPR. After 6 minutes of CPR by the , EMS arrived to find the patient in ventricular fibrillation. CPR was initiated and he was shocked a total of 3 times and received a total of 4 rounds of epinephrine with ROSC after the final shock. Total time of CPR by EMS was estimated to be about 25 minutes in addition to the 6 minutes by the . En route, he was intubated and EMS started an epinephrine drip as well as gave amiodarone and bicarb. Vital signs on route: HR 50-60 bpm, BP 50-60/30, sp02 90-100%. He arrives to the ED in a normal sinus rhythm with rate in 80s with BP 120/76. Per the , he had no preceding symptoms of chest discomfort or shortness of breath in the prior week. He has no significant cardiac history. History was obtained from the and ED notes as pt was sedated and intubated. In the ED, HR was 83, BP was 120/76. WBC 11.3, Hb 12.5, glucose 254, AST 103, ALT 97, troponin <0.01. Lactic acid 8.1. EKG showed anterior ST elevation. CT head was negative. Dr. Almonte of Cardiology was contacted and the patient received ASA but heparin gtt was deferred per Cardiology. He was placed on cooling protocol and taken to the pit laborer, and found to have a significant mid- LAD occlusion which required 3 stents. Hospital Course #. Out of hospital cardiac arrest secondary to acute anterior STEMI. Present on admission and stable. - Total time of CPR ~25 minutes with 3 shocks, 4 rounds of epinephrine and ROSC after the final shock. - s/p PCI on 01/20 with 3 drug-eluting stents placed in the LAD as well as a temporary intra-aortic balloon pump (removed 01/20). - Echocardiogram showed an EF of 40% as well as hypokinesis to akinesis along the apical, anteroseptum, anterior, and part of the anterolateral wall. - Continue aspirin, statin and prasugrel per Cardiology. Appreciate recommendations and expertise. No changes to this medical plan at this point. #. Cardiogenic Shock (acute systolic heart failure), acute. Present on admission. Stable. - Secondary to acute STEMI with possible infectious component related to aspiration during CPR. - WBC on admission 11.3, most recently 25.3 and trending down. Pt receiving Unasyn to cover aspiration pneumonia. - Blood/sputum cultures negative thus far - Echocardiogram as above, EF of about 40%. Patient does have global anasarca secondary to resuscitation. #. Acute respiratory failure with hypoxia. Present on admission. Active and stable. - Secondary to cardiac arrest. - Continue mechanical ventilation , wean oxygen as able. #. Probable aspiration pneumonia, present on admission and improving. He did have intermittent fevers overnight. -Continue Unasyn, no other changes. #. Anoxic brain injury, acute. Present on admission. Active and not improving. - Secondary to cardiac arrest and CPR prior to admission. Patient without purposeful movement or signs of mentation despite reduction in sedatives. No gag reflex and pupils are not reactive to light. - EEG showed slow activity but no epileptiform abnormalities. - Repeat head CT on 01/22 with findings consistent with evolving anoxic brain injury - Neurology consulted. Patient will be reassessed on Friday. The family is fully prepared to withdrawal care at that point. EEG was done this morning and will be read by neurology. They will reevaluate on Friday. The family is fairly fully prepared for a compassionate extubation. #. Seizure-like activity, acute. Not present on admission. Stable and intermittently active.. - Patient with seizure-like activity after cooling to 32.8 C. - EEG results as above. - Continue Bupropion, Keppra, propofol and valproic acid with plan to discontinue as above #. Leukocytosis, acute. Present on admission. Active and improved.. - WBC on admission 11.3 and remains elevated at 25.3 but trending down. Patient started on Unasyn empirically to cover aspiration pneumonia. - Procalcitonin trended down, blood/sputum cultures negative - Repeat CXR, CBC #. Lactic acidosis, acute. Present on admission. Active and resolved - Secondary to cardiac arrest and cardiogenic shock. - Treat underlying cardiac causes - Continue to monitor #. Hyperglycemia, acute. Present on admission and improved. - BG 254 on admission, increased to 324.Likely acute stress reaction. No history of diabetes. - A1c 5.6 - Continue insulin gtt, bedside glucose monitoring Hospital course: This patient was admitted as an acute STEMI after an out of hospital cardiac arrest. The patient was placed on the hypothermia protocol and underwent PCI of the culprit LAD lesion. He unfortunately revealed no evidence of potential neurologic activity after hypothermia protocol.. The patient also showed evidence of poor brainstem reflexes throughout the last 5 days of his hospitalization. Neurology was involved to assist with prognosis. The patient had multiple EEGs revealing poor evidence of brain activity. Ultimately on the days leading up to expiration the family had committed to terminating supportive care if he did not improve by Friday. On Friday morning the patient had no evidence of meaningful neurologic recovery. The patient was seen again by Dr. Gee of neurology. The last conference was held with the family. The patient was then placed on Ativan and fentanyl drips and compassionately extubated on 1110. The patient at 1142. Exam Test 01/19/17 15:52 01/19/17 19:51 01/20/17 00:35 01/20/17 04:50 Hold [place] Top Tube Received (Received) Hemoglobin A1c 5.6% (4.8-5.6) Urine Color Yellow (YELLOW) Urine Appearance Clear (CLEAR,HAZY) Urine pH 5.0 (5.0-8.0) Urine Specific [place] 1.015 (1.003-1.035) Urine Protein Negativemg/dL (NEG,TRACE) Urine Glucose (UA) >1000mg/dL (NEGATIVE) Urine Ketones 40mg/dL (NEGATIVE) Urine Occult Blood Large (NEGATIVE) Urine Nitrite Negative (NEGATIVE) Urine Bilirubin Negative (NEGATIVE) Urine Urobilinogen Normalmg/dL (NORMAL) Urine Leukocyte Esterase Negative (NEGATIVE) Urine RBC >50/hpf (0-2) Urine WBC 0-5/hpf (0-5) Urine Epithelial Cells Occasional/hpf (NONE-MOD) Urine Crystals None seen (NONE SEEN) Urine Bacteria Few/hpf (NONE-FEW) Urine Hyaline Casts None/lpf (NONE) Urine Granular Casts 5-20 (NONE SEEN) Urine Waxy Casts None seen (NONE SEEN) Urine Red Blood Cell Casts None seen (NONE SEEN) Urine White Blood Cell Casts None seen (NONE SEEN) Urine Mucus None seen (None Seen) Urine Trichomonas None seen (NONE SEEN) Urine Yeast None (NONE SEEN) Urinalysis Comment None Urine Culture Reflexed Not indicated Pro-B-Type Natriuretic Peptide 693.5pg/mL (0-376) Triglycerides Level 118mg/dL (0-149) Cholesterol Level 199mg/dL (100-199) LDL Cholesterol, Calculated 92.400mg/dL (0-99) VLDL Cholesterol 23.600mg/dL HDL Cholesterol 83mg/dL (>39) Cholesterol/HDL Ratio 2.40 (0.0-4.4) Test 01/21/17 05:25 01/22/17 05:04 01/23/17 03:55 01/23/17 09:30 Prothrombin Time 11.5sec (8.1-12.5) Prothromb Time International Ratio 1.07ratio Lactic Acid Level 3.1mmol/L (0.4-2.0) Ionized Calcium 1.12mmol/L (1.17-1.32) Total Creatine Kinase 8691U/L (21-232) Creatine Kinase MB 560.4ng/mL (0.0-10.4) Creatine Kinase MB % 6.4% (0.0-5.0) Troponin T 4.33ug/L (0.0-0.011) Phosphorus Level 2.1mg/dL (2.5-4.9) Magnesium Level 2.3mg/dL (1.6-2.6) Procalcitonin 0.44ng/mL (0.00-0.08) Valproic Acid (Depakene) Level 44ug/mL (50-125) Test 01/25/17 05:55 01/26/17 03:00 01/27/17 00:52 Band Neutrophils % 1% (1-5) White Blood Count 6.9th/mm3 (3.8-10.1) Red Blood Count 3.59mil/mm3 (4.40-5.80) Hemoglobin 9.9g/dL (13.8-17.2) Hematocrit 30.6% (41.0-50.0) Mean Corpuscular Volume 85.2fL (81-100) Mean Corpuscular Hemoglobin 27.6pg (27.0-35.0) Mean Corpuscular Hemoglobin Concent 32.4% (32.0-37.0) Red Cell Distribution Width 16.2% (12.3-15.4) Platelet Count 133bil/L (150-400) Neutrophils (%) (Auto) 74% (40-74) Lymphocytes (%) (Auto) 20% (14-46) Monocytes (%) (Auto) 13% (4-12) Eosinophils (%) (Auto) 3% (0-5) Basophils (%) (Auto) 1% (0-3) Hematology Comments Hold Purple Top Tube Received (Received) Sodium Level 145mEq/L (134-144) Chloride Level 105mEq/L (97-108) Carbon Dioxide Level 25mmol/L (18-29) Blood Urea Nitrogen 24mg/dL (8-27) Creatinine 0.90mg/dL (0.76-1.27) Estimat Glomerular Filtration Rate 89mL/min (>59) Glucose Level 140mg/dL (60-99) Calcium Level 8.4mg/dL (8.5-10.1) Total Bilirubin 0.5mg/dL (0.0-1.2) Aspartate Amino Transf (AST/SGOT) 96U/L (0-50) Alanine Aminotransferase (ALT/SGPT) 51U/L (0-44) Alkaline Phosphatase 54U/L (25-160) Total Protein 5.0g/dL (6.4-8.4) Albumin 2.5g/dL (3.4-5.0) Hold [place] Top Tube Received (Received) Potassium Level 3.8mEq/L (3.5-5.2) Microbiology Results 01/20/17 Blood Culture -No growth at 2 days 01/19/17 MRSA (PCR) - Negative 01/19/17 Sputum Quality Screen - Final, Complete 01/19/17 Sputum Culture -MODERATE NORMAL WOODY PRESENT Time spent 70 minutes on his care on his last day. Heladio Hernandez MD Jan 27, 2017 13:36
--- NOTE | 2017-01-27 13:38 | PROG NOTE ---
[address] [address] PROGRESS NOTE PATIENT: EDDIE DÍAZ : 1950 MR#: [id number] ADMIT: 01/19/2017 JOB ID: [id number] DATE: 01/27/2017 REQUESTING PHYSICIAN: Heladio Hernandez MD. Poor prognosis status post myocardial infarction. SUBJECTIVE: The patient is a 66-year-old gentleman who had an [id number] cardiac arrest on January 19, 2017 with no evidence of higher-level brain function indicating cortical recovery. I recommended re-evaluation on Friday in my consultation from January 24, 2017. At that time, the patient had failed to have any voluntary or meaningful activity, but brainstem remained intact. An EEG was completed after my consultation, which showed burst suppression pattern consistent with severe anoxic injury. The patient's and two children are at the bedside and reiterate the patient's words, that he did not want to be kept alive if he could not resume the ability to think and have conversation at his premorbid state. He is now eight days post event with no purposeful movement. He is breathing above the ventilator. Although we discussed the possibility of continuing to observe for the next two days, the patient's states that she has made a decision to withdraw support based on her 's wishes. REVIEW OF SYSTEMS: Cannot be obtained due to patient's coma state. OBJECTIVE: Vital signs: Pulse 56, blood pressure 109/60, pulse oximetry 97% on mechanical ventilator. Patient is breathing at 18 over the ventilator set at 14. Head: Normocephalic, atraumatic. No evidence of carotid bruits. Lungs clear to auscultation. Cardiac: Regular rate and rhythm. S1, S2 present. Edema noted in the right greater than left hand and in the lower extremities. NEUROLOGIC EXAMINATION: This is a limited examination due to patient's lack of responsiveness, inability to speak and persistent encephalopathy. He does not respond to speech or pain. Cranial nerves: Pupils are equally reactive to light and accommodation. Extraocular movements no longer show doll's eyes. The rest of the cranial nerve exam is deferred. Patient does appear to have gag and corneal response is retained. Motor: No response to deep pain. No spontaneous movement. Mild tremor noted in the hands, left greater than right. Deep tendon reflexes mute throughout. Tone: Flaccid throughout. Sensation: No response to deep pain. ALLERGIES: No known drug allergies. MEDICATIONS: 1. Aspirin. 2. Heparin. 3. Famotidine. 4. Levetiracetam 1000 mg b.i.d. 5. Propofol. 6. Valproate. 7. Atorvastatin. ASSESSMENT AND RECOMMENDATION: The patient is a 66-year-old gentleman with [id number] cardiac arrest on January 19, 2017. He has failed to resume any Voluntary movement, although brainstem remains intact. The patient's EEG on January 24 was completed without propofol and showed evidence of burst suppression pattern. This is a pattern that suggests catastrophic anoxic injury. Family has decided to withdraw support. Over half of this 30-minute consultation was spent in counseling. Will sign off for now. Please call if needed. HIEN
== END 2017-01-27 11:42 | disposition expired | DRG 270 ==
LOC: SED 15:17 → EDBD 15:17 → CCU 16:09
PROVIDERS: ADMIT Internal Medicine Cardiovascular Disease; ATTEND Hospitalist
PROC: 5A02110 Assistance with Cardiac Output using Balloon Pump, Intermittent (ICD-10-PCS; principal; 2017-01-19)
PROC: 027036Z Dilation of Coronary Artery, One Artery with Three Drug-eluting Intraluminal Devices, Percutaneous Approach (ICD-10-PCS; 2017-01-19)
PROC: 4A023N7 Measurement of Cardiac Sampling and Pressure, Left Heart, Percutaneous Approach (ICD-10-PCS; 2017-01-19)
PROC: B2111ZZ Fluoroscopy of Multiple Coronary Arteries using Low Osmolar Contrast (ICD-10-PCS; 2017-01-19)
PROC: 5A1955Z Respiratory Ventilation, Greater than 96 Consecutive Hours (ICD-10-PCS; 2017-01-19)
PROC: 4A033R1 Measurement of Arterial Saturation, Peripheral, Percutaneous Approach (ICD-10-PCS; 2017-01-19)
DX: I21.02 ST elevation (STEMI) myocardial infarction involving left anterior descending coronary artery (principal); J96.01 Acute respiratory failure with hypoxia; R40.2112 Coma scale, eyes open, never, at arrival to emergency department; R40.2212 Coma scale, best verbal response, none, at arrival to emergency department; R40.2312 Coma scale, best motor response, none, at arrival to emergency department; J69.0 Pneumonitis due to inhalation of food and vomit; I50.21 Acute systolic (congestive) heart failure; N17.9 Acute kidney failure, unspecified; E87.2 Acidosis; G93.1 Anoxic brain damage, not elsewhere classified; I49.01 Ventricular fibrillation; I10 Essential (primary) hypertension; E78.5 Hyperlipidemia, unspecified; I46.2 Cardiac arrest due to underlying cardiac condition; I25.10 Atherosclerotic heart disease of native coronary artery without angina pectoris; R73.9 Hyperglycemia, unspecified; R56.9 Unspecified convulsions